=== PATIENT | male | born 1940 | race Caucasian/White ===

== ENCOUNTER 2018-01-22 11:40 | Inpatient (IN) | payer MEDICARE, OTHER ==
[2018-01-22 13:16] LABS: ABNORMAL IP MESSAGE 1; HEMOGLOBIN 13.6 g/dl (14.0-18.0); MEAN CORPUSCULAR HEMOGLOBIN 28.3 pg (29.0-33.0); MEAN CORPUSCULAR HGB CONC 33.2 g/dl (32.0-37.0); MEAN CORPUSCULAR VOLUME 85.2 fl (82.0-101.0); MEAN PLATELET VOLUME 11.5 fl (7.4-10.4); PLATELET COUNT 77 10^3/UL (140-415); POSITIVE DIFF @See below; RED BLOOD COUNT 4.81 10^6/ul (4.70-6.10); RED CELL DISTRIBUTION WIDTH 14.8 % (11.5-14.5)
[2018-01-22 13:16] LABS: WHITE BLOOD COUNT 3.6 10^3/ul (4.8-10.8)
[2018-01-22 13:20] LABS: LACTIC ACID 1.5 mmol/L (0.5-2.0)
[2018-01-22 13:20] LABS: ALANINE AMINOTRANSFERASE 16 IU/L (13-69); ALBUMIN 3.9 g/dl (3.3-4.9); ALBUMIN/GLOBULIN RATIO 1.02; ALKALINE PHOSPHATASE 38 IU/L (42-121); ANION GAP 15 (8-16); ASPARTATE AMINO TRANSFERASE 22 IU/L (15-46); BILIRUBIN,INDIRECT 0.3 mg/dl (0-1.1); BILIRUBIN,TOTAL 0.3 mg/dl (0.2-1.3); BLOOD UREA NITROGEN 10 mg/dl (7-20); CARBON DIOXIDE 27 mmol/L (21-31); CHLORIDE 100 mmol/L (97-110); GLUCOSE 162 mg/dl (70-220); SODIUM 138 mmol/L (135-144); TOTAL PROTEIN 7.7 g/dl (6.1-8.1)
[2018-01-22 13:21] LABS: ADD MAN DIFF? YES; INR 1.25; PROTIME 15.9 Sec (11.9-14.9); PT RATIO 1.2
[2018-01-22 13:24] LABS: PARTIAL THROMBOPLASTIN TIME 36.1 Sec (25.0-35.0)
[2018-01-22] MEDS: SODIUM CHLORIDE 0.9% 1L BAG IV* (13:26)
[2018-01-22 13:31] LABS: TROPONIN-I < 0.012 ng/ml (0.00-0.12)
[2018-01-22 13:46] LABS: ANISOCYTOSIS 2+ (0-0); BAND NEUTROPHILS #M 0.4 10^3/ul (0.0-0.6); BAND NEUTROPHILS % (M) 13 % (0-4); LYMPHOCYTES #M 0.5 10^3/ul (0.8-2.9); LYMPHOCYTES % (M) 16 % (15-51); METAMYELOCYTES %M 1 % (0-0); MICROCYTOSIS 2+ (0-0); MONOCYTE #M 0.5 10^3/ul (0.3-0.9); MONOCYTES % (M) 15 % (0-11); MYELOCYTES #M 0.1 10^3/ul (0.0-0.0); MYELOCYTES % (M) 3 % (0-0); PLATELET ESTIMATE SIG DECREASED; POIKILOCYTOSIS 2+ (0-0); POLYCHROMASIA 3+ (0-0); REACTIVE LYMPHOCYTES #M 0.2 10^3/ul (0.0-0.0); REACTIVE LYMPHOCYTES% (M) 8 % (0-0); SEG NEUT #M 1.6 10^3/ul (1.6-7.5); SEGMENTED NEUTROPHILS (M) % 44 % (39-77); SMUDGE%M 1 % (0-0)
[2018-01-22] MEDS: CEFEPIME 2GM/50 ML (PMX) 50 ML IVPB (14:07)
[2018-01-22 14:23] LABS: ADD UMIC YES; UR ASCORBIC ACID NEGATIVE (NEGATIVE); UR BILIRUBIN (Dip) NEGATIVE (NEGATIVE); UR BLOOD (Dip) 3+ mg/dL (NEGATIVE); UR CLARITY CLEAR (CLEAR); UR COLOR YELLOW (YELLOW); UR GLUCOSE (Dip) NEGATIVE (NEGATIVE); UR KETONES (Dip) NEGATIVE (NEGATIVE); UR LEUKOCYTE ESTERASE (Dip) NEGATIVE Leu/ul (NEGATIVE); UR MUCUS MANY /HPF (NONE SEEN); UR NITRITE (Dip) NEGATIVE (NEGATIVE); UR RBC 64 /HPF (0-5); UR SPECIFIC GRAVITY (Dip) 1.025 (1.003-1.030); UR TOTAL PROTEIN (Dip) 2+ mg/dl (NEGATIVE); UR UROBILINOGEN (Dip) NEGATIVE (NEGATIVE); UR WBC 2 /HPF (0-5)
[2018-01-22 14:56] LABS: LACTIC ACID 1.2 mmol/L (0.5-2.0)
[2018-01-22] MEDS: VANCOMYCIN 1 GM (PMX) 250 ML IVPB (15:04)
[2018-01-22] MEDS ORDERED: ACETAMINOPHEN 325 MG TAB PO (17:00)
[2018-01-22] MEDS ORDERED: ONDANSETRON 4 MG INJ IV (17:00)
[2018-01-22] MEDS: ACETAMINOPHEN 500 MG TAB PO (17:01)
[2018-01-22 17:10] LABS: LACTIC ACID 1.4 mmol/L (0.5-2.0)
[2018-01-22] MEDS: SOD CHLORIDE 0.9% 1,000 ML IV (19:17)
[2018-01-22] MEDS: CEFEPIME 1GM/50 ML (PMX) 50 ML IVPB (23:57)
[2018-01-23 06:28] LABS: ADD MAN DIFF? NO
[2018-01-23 06:37] LABS: WHITE BLOOD COUNT 3.2 10^3/ul (4.8-10.8)
[2018-01-23 06:37] LABS: ABNORMAL IP MESSAGE 1; EOSINOPHILS % 0.6 % (0.0-7.0); HEMATOCRIT 38.2 % (42.0-52.0); HEMOGLOBIN 12.5 g/dl (14.0-18.0); LYMPHOCYTES # 1.1 10^3/ul (0.8-2.9); LYMPHOCYTES % 32.8 % (15.0-51.0); MEAN CORPUSCULAR HEMOGLOBIN 28.2 pg (29.0-33.0); MEAN CORPUSCULAR HGB CONC 32.7 g/dl (32.0-37.0); MEAN CORPUSCULAR VOLUME 86.2 fl (82.0-101.0); MEAN PLATELET VOLUME 11.2 fl (7.4-10.4); MONOCYTE # 0.7 10^3/ul (0.3-0.9); MONOCYTES % 22.5 % (0.0-11.0); NEUTROPHIL # 1.4 10^3/ul (1.6-7.5); NEUTROPHILS % 43.5 % (39.0-77.0); PLATELET COUNT 64 10^3/UL (140-415); POSITIVE DIFF @See below; RED BLOOD COUNT 4.43 10^6/ul (4.70-6.10); RED CELL DISTRIBUTION WIDTH 14.8 % (11.5-14.5)
[2018-01-23 07:41] LABS: ANION GAP 14 (8-16); BLOOD UREA NITROGEN 8 mg/dl (7-20); CALCIUM 8.1 mg/dl (8.4-10.2); CARBON DIOXIDE 27 mmol/L (21-31); CHLORIDE 105 mmol/L (97-110); CREATININE 0.72 mg/dl (0.61-1.24); GLUCOSE 90 mg/dl (70-220); POTASSIUM 3.7 mmol/L (3.5-5.1); SODIUM 142 mmol/L (135-144)
[2018-01-23] MEDS: CEFEPIME 1GM/50 ML (PMX) 50 ML IVPB ×2 (09:51→20:33)
[2018-01-23] MEDS: RISPERIDONE 1 MG TAB PO (09:52)
[2018-01-23] MEDS: CHOLECALCIFEROL 400 UNITS TAB PO (09:52)
[2018-01-23] MEDS: ESCITALOPRAM 10 MG TAB PO (09:52)
[2018-01-23] MEDS: DONEPEZIL 10 MG TAB PO (09:52)
[2018-01-23] MEDS: BENAZEPRIL 40 MG TAB PO (09:52)
[2018-01-23] MEDS: DUTASTERIDE 0.5 MG CAP PO (09:52)
[2018-01-23] MEDS: DOCUSATE SODIUM 250 MG CAP PO ×3 (09:53→20:34)
[2018-01-23] MEDS: AZELASTINE 30 ML NAS SPRAY NASAL ×2 (09:53→20:35)
[2018-01-23] MEDS: MEMANTINE 10 MG TAB PO (09:53)
[2018-01-23] MEDS: TAMSULOSIN (SR) 0.4 MG CAP PO (20:34)
[2018-01-24 06:48] LABS: ABNORMAL IP MESSAGE 1; HEMATOCRIT 39.1 % (42.0-52.0); HEMOGLOBIN 12.9 g/dl (14.0-18.0); MEAN CORPUSCULAR HEMOGLOBIN 28.4 pg (29.0-33.0); MEAN CORPUSCULAR VOLUME 86.1 fl (82.0-101.0); MEAN PLATELET VOLUME 10.9 fl (7.4-10.4); PLATELET COUNT 71 10^3/UL (140-415); POSITIVE DIFF @See below; RED BLOOD COUNT 4.54 10^6/ul (4.70-6.10); RED CELL DISTRIBUTION WIDTH 14.6 % (11.5-14.5)
[2018-01-24 06:58] LABS: ANION GAP 13 (8-16); BLOOD UREA NITROGEN 9 mg/dl (7-20); CALCIUM 8.6 mg/dl (8.4-10.2); CARBON DIOXIDE 30 mmol/L (21-31); CHLORIDE 105 mmol/L (97-110); CREATININE 0.75 mg/dl (0.61-1.24); GLUCOSE 166 mg/dl (70-220); POTASSIUM 3.5 mmol/L (3.5-5.1); SODIUM 144 mmol/L (135-144)
[2018-01-24 07:02] LABS: ADD MAN DIFF? YES
[2018-01-24 07:53] LABS: ANISOCYTOSIS 1+ (0-0); BAND NEUTROPHILS % (M) 3 % (0-4); BURR CELLS 1+ (0-0); EOSINOPHILS % (M) 1 % (0-7); LYMPHOCYTES % (M) 53 % (15-51); MICROCYTOSIS 1+ (0-0); MONOCYTE #M 0.3 10^3/ul (0.3-0.9); MONOCYTES % (M) 18 % (0-11); MYELOCYTES % (M) 1 % (0-0); PLATELET ESTIMATE DECREASED; POIKILOCYTOSIS 1+ (0-0); POLYCHROMASIA 2+ (0-0); SEG NEUT #M 0.5 10^3/ul (1.6-7.5); SEGMENTED NEUTROPHILS (M) % 24 % (39-77); SMUDGE%M 4 % (0-0)
[2018-01-24] MEDS: DOCUSATE SODIUM 250 MG CAP PO ×3 (09:14→20:10)
[2018-01-24] MEDS: ESCITALOPRAM 10 MG TAB PO (09:14)
[2018-01-24] MEDS: RISPERIDONE 1 MG TAB PO (09:14)
[2018-01-24] MEDS: MEMANTINE 10 MG TAB PO (09:14)
[2018-01-24] MEDS: BENAZEPRIL 40 MG TAB PO (09:15)
[2018-01-24] MEDS: DONEPEZIL 10 MG TAB PO (09:15)
[2018-01-24] MEDS: DUTASTERIDE 0.5 MG CAP PO (09:16)
[2018-01-24] MEDS: CHOLECALCIFEROL 400 UNITS TAB PO (09:16)
[2018-01-24] MEDS: CEFEPIME 1GM/50 ML (PMX) 50 ML IVPB ×2 (09:17→20:10)
[2018-01-24] MEDS: AZELASTINE 30 ML NAS SPRAY NASAL ×2 (09:18→20:11)
[2018-01-24] MEDS: TAMSULOSIN (SR) 0.4 MG CAP PO (20:10)
[2018-01-25 06:02] LABS: ADD MAN DIFF? NO
[2018-01-25 06:09] LABS: ABNORMAL IP MESSAGE 1; BASOPHILS % 0.4 % (0.0-2.0); EOSINOPHILS % 0.4 % (0.0-7.0); HEMATOCRIT 36.4 % (42.0-52.0); HEMOGLOBIN 12.1 g/dl (14.0-18.0); LYMPHOCYTES # 1.1 10^3/ul (0.8-2.9); LYMPHOCYTES % 48.3 % (15.0-51.0); MEAN CORPUSCULAR HEMOGLOBIN 28.2 pg (29.0-33.0); MEAN CORPUSCULAR HGB CONC 33.2 g/dl (32.0-37.0); MEAN CORPUSCULAR VOLUME 84.8 fl (82.0-101.0); MEAN PLATELET VOLUME 10.9 fl (7.4-10.4); MONOCYTE # 0.5 10^3/ul (0.3-0.9); NEUTROPHIL # 0.7 10^3/ul (1.6-7.5); NEUTROPHILS % 30.5 % (39.0-77.0); PLATELET COUNT 77 10^3/UL (140-415); POSITIVE DIFF @See below; RED BLOOD COUNT 4.29 10^6/ul (4.70-6.10); RED CELL DISTRIBUTION WIDTH 14.8 % (11.5-14.5)
[2018-01-25 06:09] LABS: WHITE BLOOD COUNT 2.3 10^3/ul (4.8-10.8)
[2018-01-25 06:25] LABS: ANION GAP 11 (8-16); BLOOD UREA NITROGEN 9 mg/dl (7-20); CALCIUM 8.7 mg/dl (8.4-10.2); CARBON DIOXIDE 30 mmol/L (21-31); CHLORIDE 108 mmol/L (97-110); CREATININE 0.66 mg/dl (0.61-1.24); GLUCOSE 105 mg/dl (70-220); POTASSIUM 3.7 mmol/L (3.5-5.1); SODIUM 145 mmol/L (135-144)
[2018-01-25] MEDS: DOCUSATE SODIUM 250 MG CAP PO ×3 (08:23→20:20)
[2018-01-25] MEDS: CHOLECALCIFEROL 400 UNITS TAB PO (08:23)
[2018-01-25] MEDS: AZELASTINE 30 ML NAS SPRAY NASAL ×2 (08:23→20:20)
[2018-01-25] MEDS: CEFEPIME 1GM/50 ML (PMX) 50 ML IVPB ×2 (08:23→20:20)
[2018-01-25] MEDS: DONEPEZIL 10 MG TAB PO (08:24)
[2018-01-25] MEDS: DUTASTERIDE 0.5 MG CAP PO (08:24)
[2018-01-25] MEDS: MEMANTINE 10 MG TAB PO (08:24)
[2018-01-25] MEDS: RISPERIDONE 1 MG TAB PO (08:24)
[2018-01-25] MEDS: ESCITALOPRAM 10 MG TAB PO (08:24)
[2018-01-25] MEDS: BENAZEPRIL 40 MG TAB PO (08:25)
[2018-01-25] MEDS: TAMSULOSIN (SR) 0.4 MG CAP PO (20:20)
[2018-01-26 05:58] LABS: ADD MAN DIFF? NO
[2018-01-26 06:14] LABS: RETICULOCYTE COUNT # 0.036 X10^6 (0.020-0.110); RETICULOCYTE COUNT % 0.8 % (0.5-1.5)
[2018-01-26 06:14] LABS: RETICULOCYTE RBC 4.43
[2018-01-26 06:16] LABS: ABNORMAL IP MESSAGE 1; BASOPHILS % 0.4 % (0.0-2.0); EOSINOPHILS % 0.4 % (0.0-7.0); HEMATOCRIT 37.9 % (42.0-52.0); HEMOGLOBIN 12.5 g/dl (14.0-18.0); LYMPHOCYTES # 1.1 10^3/ul (0.8-2.9); LYMPHOCYTES % 46.4 % (15.0-51.0); MEAN CORPUSCULAR HEMOGLOBIN 28.1 pg (29.0-33.0); MEAN CORPUSCULAR VOLUME 85.2 fl (82.0-101.0); MEAN PLATELET VOLUME 10.5 fl (7.4-10.4); MONOCYTE # 0.4 10^3/ul (0.3-0.9); MONOCYTES % 17.9 % (0.0-11.0); NEUTROPHIL # 0.8 10^3/ul (1.6-7.5); PLATELET COUNT 89 10^3/UL (140-415); POSITIVE DIFF @See below; RED BLOOD COUNT 4.45 10^6/ul (4.70-6.10); RED CELL DISTRIBUTION WIDTH 14.6 % (11.5-14.5)
[2018-01-26 06:16] LABS: WHITE BLOOD COUNT 2.4 10^3/ul (4.8-10.8)
[2018-01-26 06:21] LABS: ANION GAP 14 (8-16); BLOOD UREA NITROGEN 11 mg/dl (7-20); CALCIUM 8.8 mg/dl (8.4-10.2); CARBON DIOXIDE 27 mmol/L (21-31); CHLORIDE 107 mmol/L (97-110); CREATININE 0.69 mg/dl (0.61-1.24); GLUCOSE 107 mg/dl (70-220); POTASSIUM 3.9 mmol/L (3.5-5.1); SODIUM 144 mmol/L (135-144)
[2018-01-26 06:48] LABS: IRON 65 ug/dl (35-150)
[2018-01-26 06:57] LABS: % IRON SATURATION 20 % SAT (22-52); TOTAL IRON BINDING CAPACITY 328 ug/dl (241-421)
[2018-01-26 07:03] LABS: THYROID STIMULATING HORMONE 0.195 MIU/L (0.465-4.680)
[2018-01-26 07:07] LABS: FERRITIN 28.7 ng/ml (11.1-264.0)
[2018-01-26 07:50] LABS: LACTATE DEHYDROGENASE 260 IU/L (313-618)
[2018-01-26] MEDS: CHOLECALCIFEROL 400 UNITS TAB PO (08:07)
[2018-01-26] MEDS: AZELASTINE 30 ML NAS SPRAY NASAL ×2 (08:07→20:40)
[2018-01-26] MEDS: DONEPEZIL 10 MG TAB PO (08:07)
[2018-01-26] MEDS: DOCUSATE SODIUM 250 MG CAP PO ×3 (08:07→20:39)
[2018-01-26] MEDS: CEFEPIME 1GM/50 ML (PMX) 50 ML IVPB ×2 (08:07→20:39)
[2018-01-26] MEDS: BENAZEPRIL 40 MG TAB PO (08:08)
[2018-01-26] MEDS: RISPERIDONE 1 MG TAB PO (08:08)
[2018-01-26] MEDS: DUTASTERIDE 0.5 MG CAP PO (08:08)
[2018-01-26] MEDS: ESCITALOPRAM 10 MG TAB PO (08:08)
[2018-01-26] MEDS: MEMANTINE 10 MG TAB PO (08:09)
[2018-01-26 08:58] LABS: FOLATE 9.7 ng/ml (2.8-20.0)
[2018-01-26] MEDS: TAMSULOSIN (SR) 0.4 MG CAP PO (20:39)
[2018-01-27] MEDS: traMADol 50 MG TAB PO (04:25)
[2018-01-27] MEDS: MEMANTINE 10 MG TAB PO (08:36)
[2018-01-27] MEDS: DUTASTERIDE 0.5 MG CAP PO (08:37)
[2018-01-27] MEDS: BENAZEPRIL 40 MG TAB PO (08:37)
[2018-01-27] MEDS: ESCITALOPRAM 10 MG TAB PO (08:37)
[2018-01-27] MEDS: DONEPEZIL 10 MG TAB PO (08:38)
[2018-01-27] MEDS: CHOLECALCIFEROL 400 UNITS TAB PO (08:38)
[2018-01-27] MEDS: RISPERIDONE 1 MG TAB PO (08:38)
[2018-01-27] MEDS: AZELASTINE 30 ML NAS SPRAY NASAL ×2 (08:39→20:16)
[2018-01-27] MEDS: CEFEPIME 1GM/50 ML (PMX) 50 ML IVPB ×2 (08:39→20:16)
[2018-01-27] MEDS: DOCUSATE SODIUM 250 MG CAP PO ×3 (08:39→20:16)
[2018-01-27] MEDS: TAMSULOSIN (SR) 0.4 MG CAP PO (20:16)
[2018-01-28 05:49] LABS: ADD MAN DIFF? NO
[2018-01-28 06:01] LABS: ABNORMAL IP MESSAGE 1; BASOPHILS % 0.3 % (0.0-2.0); EOSINOPHILS % 0.6 % (0.0-7.0); HEMATOCRIT 39.4 % (42.0-52.0); HEMOGLOBIN 12.8 g/dl (14.0-18.0); LYMPHOCYTES # 1.3 10^3/ul (0.8-2.9); LYMPHOCYTES % 41.9 % (15.0-51.0); MEAN CORPUSCULAR HGB CONC 32.5 g/dl (32.0-37.0); MEAN CORPUSCULAR VOLUME 86.2 fl (82.0-101.0); MEAN PLATELET VOLUME 10.2 fl (7.4-10.4); MONOCYTE # 0.7 10^3/ul (0.3-0.9); MONOCYTES % 23.9 % (0.0-11.0); NEUTROPHIL # 0.9 10^3/ul (1.6-7.5); NEUTROPHILS % 30.1 % (39.0-77.0); PLATELET COUNT 106 10^3/UL (140-415); POSITIVE DIFF @See below; RED BLOOD COUNT 4.57 10^6/ul (4.70-6.10); RED CELL DISTRIBUTION WIDTH 14.3 % (11.5-14.5)
[2018-01-28 06:01] LABS: WHITE BLOOD COUNT 3.1 10^3/ul (4.8-10.8)
[2018-01-28 06:25] LABS: ANION GAP 10 (8-16); BLOOD UREA NITROGEN 10 mg/dl (7-20); CARBON DIOXIDE 32 mmol/L (21-31); CHLORIDE 107 mmol/L (97-110); CREATININE 0.75 mg/dl (0.61-1.24); GLUCOSE 110 mg/dl (70-220); POTASSIUM 4.4 mmol/L (3.5-5.1); SODIUM 145 mmol/L (135-144)
[2018-01-28] MEDS: MEMANTINE 10 MG TAB PO (09:23)
[2018-01-28] MEDS: DOCUSATE SODIUM 250 MG CAP PO ×3 (09:23→20:13)
[2018-01-28] MEDS: CEFEPIME 1GM/50 ML (PMX) 50 ML IVPB ×2 (09:23→20:13)
[2018-01-28] MEDS: ESCITALOPRAM 10 MG TAB PO (09:23)
[2018-01-28] MEDS: DUTASTERIDE 0.5 MG CAP PO (09:24)
[2018-01-28] MEDS: BENAZEPRIL 40 MG TAB PO (09:24)
[2018-01-28] MEDS: DONEPEZIL 10 MG TAB PO (09:24)
[2018-01-28] MEDS: CHOLECALCIFEROL 400 UNITS TAB PO (09:24)
[2018-01-28] MEDS: RISPERIDONE 1 MG TAB PO (09:25)
[2018-01-28] MEDS: AZELASTINE 30 ML NAS SPRAY NASAL ×2 (09:27→20:13)
[2018-01-28] MEDS: TAMSULOSIN (SR) 0.4 MG CAP PO (20:13)
[2018-01-29 07:14] LABS: ADD MAN DIFF? NO
[2018-01-29 07:18] LABS: WHITE BLOOD COUNT 2.8 10^3/ul (4.8-10.8)
[2018-01-29 07:18] LABS: BASOPHILS % 0.4 % (0.0-2.0); EOSINOPHILS % 0.4 % (0.0-7.0); HEMATOCRIT 38.8 % (42.0-52.0); HEMOGLOBIN 12.7 g/dl (14.0-18.0); LYMPHOCYTES # 1.2 10^3/ul (0.8-2.9); LYMPHOCYTES % 41.5 % (15.0-51.0); MEAN CORPUSCULAR HEMOGLOBIN 27.9 pg (29.0-33.0); MEAN CORPUSCULAR HGB CONC 32.7 g/dl (32.0-37.0); MEAN CORPUSCULAR VOLUME 85.3 fl (82.0-101.0); MEAN PLATELET VOLUME 10.6 fl (7.4-10.4); MONOCYTE # 0.4 10^3/ul (0.3-0.9); MONOCYTES % 15.2 % (0.0-11.0); NEUTROPHIL # 1.1 10^3/ul (1.6-7.5); NEUTROPHILS % 40.3 % (39.0-77.0); PLATELET COUNT 114 10^3/UL (140-415); POSITIVE DIFF @See below; RED BLOOD COUNT 4.55 10^6/ul (4.70-6.10); RED CELL DISTRIBUTION WIDTH 14.7 % (11.5-14.5)
[2018-01-29 07:44] LABS: ANION GAP 15 (8-16); BLOOD UREA NITROGEN 12 mg/dl (7-20); CARBON DIOXIDE 27 mmol/L (21-31); CHLORIDE 106 mmol/L (97-110); CREATININE 0.71 mg/dl (0.61-1.24); GLUCOSE 108 mg/dl (70-220); POTASSIUM 4.2 mmol/L (3.5-5.1); SODIUM 144 mmol/L (135-144)
[2018-01-29] MEDS: AZELASTINE 30 ML NAS SPRAY NASAL ×2 (09:00→20:23)
[2018-01-29] MEDS: DUTASTERIDE 0.5 MG CAP PO (10:22)
[2018-01-29] MEDS: RISPERIDONE 1 MG TAB PO (10:22)
[2018-01-29] MEDS: ESCITALOPRAM 10 MG TAB PO (10:22)
[2018-01-29] MEDS: CEFEPIME 1GM/50 ML (PMX) 50 ML IVPB (10:22)
[2018-01-29] MEDS: MEMANTINE 10 MG TAB PO (10:22)
[2018-01-29] MEDS: CHOLECALCIFEROL 400 UNITS TAB PO (10:23)
[2018-01-29] MEDS: DOCUSATE SODIUM 250 MG CAP PO ×3 (10:23→20:22)
[2018-01-29] MEDS: DONEPEZIL 10 MG TAB PO (10:24)
[2018-01-29] MEDS: BENAZEPRIL 40 MG TAB PO (10:24)
[2018-01-29] MEDS: TAMSULOSIN (SR) 0.4 MG CAP PO (20:22)
[2018-01-30] MEDS: DONEPEZIL 10 MG TAB PO (08:45)
[2018-01-30] MEDS: DOCUSATE SODIUM 250 MG CAP PO ×2 (08:45→12:38)
[2018-01-30] MEDS: MEMANTINE 10 MG TAB PO (08:45)
[2018-01-30] MEDS: BENAZEPRIL 40 MG TAB PO (08:46)
[2018-01-30] MEDS: CHOLECALCIFEROL 400 UNITS TAB PO (08:46)
[2018-01-30] MEDS: DUTASTERIDE 0.5 MG CAP PO (08:46)
[2018-01-30] MEDS: RISPERIDONE 1 MG TAB PO (08:46)
[2018-01-30] MEDS: ESCITALOPRAM 10 MG TAB PO (08:46)
[2018-01-30] MEDS: AZELASTINE 30 ML NAS SPRAY NASAL (09:44)
== END 2018-01-30 19:20 | DRG 728 ==
LOC: MS2 01-29 23:48 → E/R 11:40 → MS2 16:54
DX: N41.0 Acute prostatitis (principal); N39.0 Urinary tract infection, site not specified; D61.818 Other pancytopenia; R31.9 Hematuria, unspecified; J02.9 Acute pharyngitis, unspecified; G30.9 Alzheimer's disease, unspecified; F02.80 Dementia in other diseases classified elsewhere, unspecified severity, without behavioral disturbance, psychotic disturbance, mood disturbance, and anxiety; I10 Essential (primary) hypertension; E78.5 Hyperlipidemia, unspecified
CPT/HCPCS: 36415; 71045; 76700; 80048; 80053; 81001; 82607; 82728; 82746; 83540; 83605; 83615; 84443; 84484; 85025; 85045; 85610; 85730; 87040; 87086; 96374; 96375; 99285-25

== ENCOUNTER 2018-09-23 12:25 | Emergency (ER) | payer MEDICARE, OTHER ==
[2018-09-23 13:21] LABS: ADD MAN DIFF? NO
[2018-09-23 13:29] LABS: WHITE BLOOD COUNT 3.1 10^3/ul (4.8-10.8)
[2018-09-23 13:29] LABS: BASOPHILS % 0.3 % (0.0-2.0); HEMATOCRIT 38.1 % (42.0-52.0); HEMOGLOBIN 12.2 g/dl (14.0-18.0); LYMPHOCYTES # 1.2 10^3/ul (0.8-2.9); LYMPHOCYTES % 38.5 % (15.0-51.0); MEAN CORPUSCULAR HEMOGLOBIN 26.6 pg (29.0-33.0); MEAN CORPUSCULAR VOLUME 83.2 fl (82.0-101.0); MEAN PLATELET VOLUME 10.6 fl (7.4-10.4); MONOCYTE # 0.6 10^3/ul (0.3-0.9); MONOCYTES % 20.1 % (0.0-11.0); NEUTROPHIL # 1.3 10^3/ul (1.6-7.5); NEUTROPHILS % 40.8 % (39.0-77.0); PLATELET COUNT 127 10^3/UL (140-415); RED BLOOD COUNT 4.58 10^6/ul (4.70-6.10); RED CELL DISTRIBUTION WIDTH 15.1 % (11.5-14.5)
[2018-09-23 13:44] LABS: ALANINE AMINOTRANSFERASE 28 IU/L (13-69); ALBUMIN 4.1 g/dl (3.3-4.9); ALBUMIN/GLOBULIN RATIO 1.13; ALKALINE PHOSPHATASE 45 IU/L (42-121); ANION GAP 7 (5-13); ASPARTATE AMINO TRANSFERASE 23 IU/L (15-46); BILIRUBIN,INDIRECT 0.2 mg/dl (0-1.1); BILIRUBIN,TOTAL 0.2 mg/dl (0.2-1.3); BLOOD UREA NITROGEN 10 mg/dl (7-20); CALCIUM 9.5 mg/dl (8.4-10.2); CARBON DIOXIDE 27 mmol/L (21-31); CHLORIDE 107 mmol/L (97-110); CREATININE 0.65 mg/dl (0.61-1.24); ETHANOL < 10.0 mg/dl (0-0); GLUCOSE 95 mg/dl (70-220); POTASSIUM 4.2 mmol/L (3.5-5.1); SODIUM 141 mmol/L (135-144); TOTAL PROTEIN 7.7 g/dl (6.1-8.1)
[2018-09-23 14:48] LABS: ADD UMIC NO; UR ASCORBIC ACID NEGATIVE (NEGATIVE); UR BILIRUBIN (Dip) NEGATIVE (NEGATIVE); UR BLOOD (Dip) NEGATIVE (NEGATIVE); UR CLARITY CLEAR (CLEAR); UR COLOR YELLOW (YELLOW); UR GLUCOSE (Dip) NEGATIVE (NEGATIVE); UR KETONES (Dip) NEGATIVE (NEGATIVE); UR LEUKOCYTE ESTERASE (Dip) NEGATIVE Leu/ul (NEGATIVE); UR NITRITE (Dip) NEGATIVE (NEGATIVE); UR TOTAL PROTEIN (Dip) NEGATIVE (NEGATIVE); UR UROBILINOGEN (Dip) NEGATIVE (NEGATIVE)
[2018-09-23 15:05] LABS: AMPHETAMINE/METHAMPHETAMINE Negative (NEGATIVE); BARBITURATES Negative (NEGATIVE); BENZODIAZEPINES Negative (NEGATIVE); CANNABINOIDS Negative (NEGATIVE); COCAINE Negative (NEGATIVE); OPIATES Negative (NEGATIVE)
== END 2018-09-23 17:30 | disposition home or self-care (01) ==
LOC: E/R 12:25
DX: F03.91 Unspecified dementia, unspecified severity, with behavioral disturbance (principal); R40.2142 Coma scale, eyes open, spontaneous, at arrival to emergency department; I10 Essential (primary) hypertension; J44.9 Chronic obstructive pulmonary disease, unspecified
CPT/HCPCS: 70450; 71045; 80053; 80307; 81003; 85025; 99285-25

== ENCOUNTER 2018-10-22 18:46 | Inpatient (IN) | payer MEDICARE, OTHER ==
[2018-10-22 19:18] LABS: ADD MAN DIFF? NO
[2018-10-22] MEDS: SOD CHLORIDE 0.9% 500 ML IV (19:18)
[2018-10-22 19:22] LABS: WHITE BLOOD COUNT 2.6 10^3/ul (4.8-10.8)
[2018-10-22 19:22] LABS: ABNORMAL IP MESSAGE 1; HEMATOCRIT 39.4 % (42.0-52.0); HEMOGLOBIN 12.5 g/dl (14.0-18.0); MEAN CORPUSCULAR HEMOGLOBIN 26.4 pg (29.0-33.0); MEAN CORPUSCULAR HGB CONC 31.7 g/dl (32.0-37.0); MEAN CORPUSCULAR VOLUME 83.3 fl (82.0-101.0); MEAN PLATELET VOLUME 10.5 fl (7.4-10.4); PLATELET COUNT 111 10^3/UL (140-415); POSITIVE DIFF @See below; RED BLOOD COUNT 4.73 10^6/ul (4.70-6.10); RED CELL DISTRIBUTION WIDTH 15.5 % (11.5-14.5)
[2018-10-22 19:36] LABS: ALANINE AMINOTRANSFERASE 17 IU/L (13-69); ALBUMIN 4.3 g/dl (3.3-4.9); ALBUMIN/GLOBULIN RATIO 1.22; ALKALINE PHOSPHATASE 44 IU/L (42-121); ANION GAP 13 (5-13); ASPARTATE AMINO TRANSFERASE 22 IU/L (15-46); BILIRUBIN,INDIRECT 0.1 mg/dl (0-1.1); BILIRUBIN,TOTAL 0.1 mg/dl (0.2-1.3); BLOOD UREA NITROGEN 14 mg/dl (7-20); CALCIUM 9.8 mg/dl (8.4-10.2); CARBON DIOXIDE 26 mmol/L (21-31); CHLORIDE 102 mmol/L (97-110); CREATININE 0.95 mg/dl (0.61-1.24); GLUCOSE 105 mg/dl (70-220); LIPASE 144 U/L (23-300); POTASSIUM 3.9 mmol/L (3.5-5.1); SODIUM 141 mmol/L (135-144); TOTAL PROTEIN 7.8 g/dl (6.1-8.1)
[2018-10-22 19:48] LABS: TROPONIN-I < 0.012 ng/ml (0.000-0.120)
[2018-10-22 20:05] LABS: GIANT THROMBO% (M) 4 % (0-0); LYMPHOCYTES #M 1.2 10^3/ul (0.8-2.9); LYMPHOCYTES % (M) 47 % (15-51); MONOCYTE #M 0.3 10^3/ul (0.3-0.9); MONOCYTES % (M) 14 % (0-11); PLATELET ESTIMATE NORMAL; POIKILOCYTOSIS 1+ (0-0); POLYCHROMASIA 1+ (0-0); SEGMENTED NEUTROPHILS (M) % 39 % (39-77); SMUDGE%M 10 % (0-0)
[2018-10-22 20:07] LABS: ADD UMIC YES; UR ASCORBIC ACID NEGATIVE (NEGATIVE); UR BILIRUBIN (Dip) NEGATIVE (NEGATIVE); UR BLOOD (Dip) 3+ mg/dL (NEGATIVE); UR CLARITY CLEAR (CLEAR); UR COLOR YELLOW (YELLOW); UR GLUCOSE (Dip) NEGATIVE (NEGATIVE); UR KETONES (Dip) NEGATIVE (NEGATIVE); UR LEUKOCYTE ESTERASE (Dip) NEGATIVE Leu/ul (NEGATIVE); UR NITRITE (Dip) NEGATIVE (NEGATIVE); UR RBC > 182 /HPF (0-5); UR SPECIFIC GRAVITY (Dip) 1.014 (1.003-1.030); UR SQUAMOUS EPITHELIAL CELL FEW /HPF (FEW); UR TOTAL PROTEIN (Dip) 1+ mg/dl (NEGATIVE); UR UROBILINOGEN (Dip) NEGATIVE (NEGATIVE); UR WBC 22 /HPF (0-5)
[2018-10-22] MEDS ORDERED: NACL 0.9% 3 ML SYG IV (21:00)
[2018-10-22] MEDS ORDERED: ONDANSETRON 4 MG INJ IV (21:00)
[2018-10-22] MEDS ORDERED: morphine 4 MG/ML VIAL IV (21:00)
[2018-10-22] MEDS: FAMOTIDINE 20 MG INJ IV (22:52)
[2018-10-22] MEDS: CEFEPIME 1GM/50 ML (PMX) 50 ML IVPB (22:52)
[2018-10-23 07:16] LABS: ADD MAN DIFF? NO
[2018-10-23 07:31] LABS: ABNORMAL IP MESSAGE 1; BASOPHILS % 0.5 % (0.0-2.0); EOSINOPHILS % 0.5 % (0.0-7.0); LYMPHOCYTES % 45.2 % (15.0-51.0); MEAN CORPUSCULAR HEMOGLOBIN 26.3 pg (29.0-33.0); MEAN CORPUSCULAR HGB CONC 31.6 g/dl (32.0-37.0); MEAN CORPUSCULAR VOLUME 83.3 fl (82.0-101.0); MEAN PLATELET VOLUME 11.3 fl (7.4-10.4); MONOCYTE # 0.5 10^3/ul (0.3-0.9); NEUTROPHIL # 0.7 10^3/ul (1.6-7.5); NEUTROPHILS % 30.3 % (39.0-77.0); PLATELET COUNT 101 10^3/UL (140-415); POSITIVE DIFF @See below; RED BLOOD COUNT 4.56 10^6/ul (4.70-6.10); RED CELL DISTRIBUTION WIDTH 15.5 % (11.5-14.5)
[2018-10-23 07:31] LABS: WHITE BLOOD COUNT 2.2 10^3/ul (4.8-10.8)
[2018-10-23 07:41] LABS: HEMOGLOBIN A1C 6.4 % (0-5.9)
[2018-10-23 07:59] LABS: ALANINE AMINOTRANSFERASE 19 IU/L (13-69); ALBUMIN 3.8 g/dl (3.3-4.9); ALBUMIN/GLOBULIN RATIO 1.15; ALKALINE PHOSPHATASE 31 IU/L (42-121); ANION GAP 6 (5-13); ASPARTATE AMINO TRANSFERASE 19 IU/L (15-46); BILIRUBIN,INDIRECT 0.2 mg/dl (0-1.1); BILIRUBIN,TOTAL 0.2 mg/dl (0.2-1.3); BLOOD UREA NITROGEN 10 mg/dl (7-20); CALCIUM 9.2 mg/dl (8.4-10.2); CARBON DIOXIDE 26 mmol/L (21-31); CHLORIDE 111 mmol/L (97-110); CREATININE 0.73 mg/dl (0.61-1.24); GLUCOSE 105 mg/dl (70-220); POTASSIUM 3.9 mmol/L (3.5-5.1); SODIUM 143 mmol/L (135-144); TOTAL PROTEIN 7.1 g/dl (6.1-8.1)
[2018-10-23] MEDS: ENOXAPARIN 30 MG/0.3 ML SYG SC (09:00)
[2018-10-23] MEDS: FAMOTIDINE 20 MG INJ IV ×2 (09:06→20:39)
[2018-10-23] MEDS: ACETAMINOPHEN 325 MG TAB PO (14:05)
[2018-10-23] MEDS ORDERED: ACETAMINOPHEN 325 MG TAB PO (19:00)
[2018-10-23] MEDS: DOCUSATE SODIUM 250 MG CAP PO (20:39)
[2018-10-23] MEDS: TAMSULOSIN (SR) 0.4 MG CAP PO (20:39)
[2018-10-23] MEDS: CEFTRIAXONE 1 GM/50 ML (PMX) 50 ML IVPB (20:43)
[2018-10-24] MEDS: DEXTROSE 5%-0.45% NACL 1,000 ML IV (03:21)
[2018-10-24] MEDS: PANTOPRAZOLE (EC) 40 MG TAB PO (05:49)
[2018-10-24] MEDS: DOCUSATE SODIUM 250 MG CAP PO ×2 (09:23→20:41)
[2018-10-24] MEDS: CHOLECALCIFEROL 400 UNITS TAB PO (09:23)
[2018-10-24] MEDS: DUTASTERIDE 0.5 MG CAP PO (09:23)
[2018-10-24] MEDS: RISPERIDONE 0.25 MG TAB PO (09:23)
[2018-10-24] MEDS: DONEPEZIL 10 MG TAB PO (09:24)
[2018-10-24] MEDS: MEMANTINE 10 MG TAB PO (09:24)
[2018-10-24] MEDS: BENAZEPRIL 40 MG TAB PO (11:21)
[2018-10-24 12:25] LABS: ADD MAN DIFF? NO
[2018-10-24 12:29] LABS: ABNORMAL IP MESSAGE 1; BASOPHILS % 0.4 % (0.0-2.0); EOSINOPHILS % 0.4 % (0.0-7.0); HEMATOCRIT 40.9 % (42.0-52.0); LYMPHOCYTES # 1.3 10^3/ul (0.8-2.9); MEAN CORPUSCULAR HGB CONC 31.8 g/dl (32.0-37.0); MEAN CORPUSCULAR VOLUME 81.8 fl (82.0-101.0); MEAN PLATELET VOLUME 10.2 fl (7.4-10.4); MONOCYTE # 0.5 10^3/ul (0.3-0.9); MONOCYTES % 18.1 % (0.0-11.0); NEUTROPHIL # 0.8 10^3/ul (1.6-7.5); NEUTROPHILS % 30.7 % (39.0-77.0); PLATELET COUNT 106 10^3/UL (140-415); POSITIVE DIFF @See below; RED CELL DISTRIBUTION WIDTH 15.7 % (11.5-14.5)
[2018-10-24 12:29] LABS: WHITE BLOOD COUNT 2.6 10^3/ul (4.8-10.8)
[2018-10-24 12:50] LABS: ANION GAP 10 (5-13); BLOOD UREA NITROGEN 11 mg/dl (7-20); CALCIUM 9.8 mg/dl (8.4-10.2); CREATININE 0.77 mg/dl (0.61-1.24); GLUCOSE 87 mg/dl (70-220)
[2018-10-24 13:21] LABS: POTASSIUM 3.9 mmol/L (3.5-5.1); SODIUM 141 mmol/L (135-144)
[2018-10-24 13:22] LABS: CARBON DIOXIDE 27 mmol/L (21-31); CHLORIDE 104 mmol/L (97-110)
[2018-10-24] MEDS: CEFTRIAXONE 1 GM/50 ML (PMX) 50 ML IVPB (18:24)
[2018-10-24] MEDS: TAMSULOSIN (SR) 0.4 MG CAP PO (20:40)
[2018-10-24] MEDS: ESCITALOPRAM 10 MG TAB PO (20:41)
[2018-10-25] MEDS: DEXTROSE 5%-0.45% NACL 1,000 ML IV ×2 (01:07→12:20)
[2018-10-25] MEDS: PANTOPRAZOLE (EC) 40 MG TAB PO (05:43)
[2018-10-25] MEDS: DOCUSATE SODIUM 250 MG CAP PO ×2 (08:52→21:04)
[2018-10-25] MEDS: BENAZEPRIL 40 MG TAB PO (08:53)
[2018-10-25] MEDS: RISPERIDONE 0.25 MG TAB PO (08:54)
[2018-10-25] MEDS: CHOLECALCIFEROL 400 UNITS TAB PO (08:54)
[2018-10-25] MEDS: MEMANTINE 10 MG TAB PO (08:54)
[2018-10-25] MEDS: DONEPEZIL 10 MG TAB PO (08:55)
[2018-10-25] MEDS: DUTASTERIDE 0.5 MG CAP PO (09:00)
[2018-10-25] MEDS: CEFTRIAXONE 1 GM/50 ML (PMX) 50 ML IVPB (17:57)
[2018-10-25] MEDS: ESCITALOPRAM 10 MG TAB PO (21:04)
[2018-10-25] MEDS: TAMSULOSIN (SR) 0.4 MG CAP PO (21:04)
[2018-10-26] MEDS: DEXTROSE 5%-0.45% NACL 1,000 ML IV ×2 (05:00→06:49)
[2018-10-26 06:07] LABS: ADD MAN DIFF? NO
[2018-10-26 06:10] LABS: WHITE BLOOD COUNT 2.9 10^3/ul (4.8-10.8)
[2018-10-26 06:10] LABS: BASOPHILS % 0.3 % (0.0-2.0); EOSINOPHILS % 0.3 % (0.0-7.0); HEMATOCRIT 38.3 % (42.0-52.0); HEMOGLOBIN 12.1 g/dl (14.0-18.0); LYMPHOCYTES # 1.3 10^3/ul (0.8-2.9); LYMPHOCYTES % 43.8 % (15.0-51.0); MEAN CORPUSCULAR HEMOGLOBIN 26.2 pg (29.0-33.0); MEAN CORPUSCULAR HGB CONC 31.6 g/dl (32.0-37.0); MEAN CORPUSCULAR VOLUME 83.1 fl (82.0-101.0); MEAN PLATELET VOLUME 11.4 fl (7.4-10.4); MONOCYTE # 0.5 10^3/ul (0.3-0.9); MONOCYTES % 17.4 % (0.0-11.0); NEUTROPHIL # 1.1 10^3/ul (1.6-7.5); NEUTROPHILS % 37.9 % (39.0-77.0); PLATELET COUNT 109 10^3/UL (140-415); RED BLOOD COUNT 4.61 10^6/ul (4.70-6.10); RED CELL DISTRIBUTION WIDTH 15.6 % (11.5-14.5)
[2018-10-26 06:45] LABS: ANION GAP 10 (5-13); BLOOD UREA NITROGEN 14 mg/dl (7-20); CALCIUM 9.2 mg/dl (8.4-10.2); CARBON DIOXIDE 26 mmol/L (21-31); CHLORIDE 106 mmol/L (97-110); CREATININE 0.76 mg/dl (0.61-1.24); GLUCOSE 107 mg/dl (70-220); POTASSIUM 3.9 mmol/L (3.5-5.1); SODIUM 142 mmol/L (135-144)
[2018-10-26] MEDS: PANTOPRAZOLE (EC) 40 MG TAB PO (06:48)
[2018-10-26] MEDS: DONEPEZIL 10 MG TAB PO (08:43)
[2018-10-26] MEDS: BENAZEPRIL 40 MG TAB PO (08:43)
[2018-10-26] MEDS: DOCUSATE SODIUM 250 MG CAP PO ×2 (08:44→20:30)
[2018-10-26] MEDS: CHOLECALCIFEROL 400 UNITS TAB PO (08:44)
[2018-10-26] MEDS: MEMANTINE 10 MG TAB PO (08:45)
[2018-10-26] MEDS: RISPERIDONE 0.25 MG TAB PO (08:45)
[2018-10-26] MEDS: DUTASTERIDE 0.5 MG CAP PO (08:45)
[2018-10-26] MEDS: ASPIRIN (EC) 81 MG TAB PO (12:53)
[2018-10-26] MEDS: TAMSULOSIN (SR) 0.4 MG CAP PO (20:30)
[2018-10-26] MEDS: ESCITALOPRAM 10 MG TAB PO (20:30)
[2018-10-27] MEDS: PANTOPRAZOLE (EC) 40 MG TAB PO (06:37)
[2018-10-27] MEDS: MEMANTINE 10 MG TAB PO (08:23)
[2018-10-27] MEDS: DUTASTERIDE 0.5 MG CAP PO (08:23)
[2018-10-27] MEDS: DOCUSATE SODIUM 250 MG CAP PO ×2 (08:23→20:42)
[2018-10-27] MEDS: RISPERIDONE 0.25 MG TAB PO (08:23)
[2018-10-27] MEDS: CHOLECALCIFEROL 400 UNITS TAB PO (08:23)
[2018-10-27] MEDS: ASPIRIN (EC) 81 MG TAB PO (08:23)
[2018-10-27] MEDS: DONEPEZIL 10 MG TAB PO (08:23)
[2018-10-27] MEDS: BENAZEPRIL 40 MG TAB PO (08:23)
[2018-10-27 09:35] LABS: ANION GAP 4 (5-13); BLOOD UREA NITROGEN 13 mg/dl (7-20); CALCIUM 9.3 mg/dl (8.4-10.2); CARBON DIOXIDE 29 mmol/L (21-31); CHLORIDE 107 mmol/L (97-110); CREATININE 0.75 mg/dl (0.61-1.24); GLUCOSE 90 mg/dl (70-220); POTASSIUM 4.1 mmol/L (3.5-5.1); SODIUM 140 mmol/L (135-144)
[2018-10-27 16:02] LABS: FOLATE 11.1 ng/ml (2.8-20.0)
[2018-10-27] MEDS ORDERED: ALBUTEROL/IPRATROPIUM (NEB) 3 ML AMP HHN (16:30)
[2018-10-27] MEDS: ESCITALOPRAM 10 MG TAB PO (20:41)
[2018-10-27] MEDS: TAMSULOSIN (SR) 0.4 MG CAP PO (20:42)
[2018-10-28] MEDS: PANTOPRAZOLE (EC) 40 MG TAB PO (06:00)
[2018-10-28 06:07] LABS: ADD MAN DIFF? NO
[2018-10-28 06:22] LABS: BASOPHILS % 0.3 % (0.0-2.0); EOSINOPHILS % 0.3 % (0.0-7.0); HEMATOCRIT 39.4 % (42.0-52.0); HEMOGLOBIN 12.5 g/dl (14.0-18.0); LYMPHOCYTES # 1.4 10^3/ul (0.8-2.9); LYMPHOCYTES % 45.1 % (15.0-51.0); MEAN CORPUSCULAR HEMOGLOBIN 26.4 pg (29.0-33.0); MEAN CORPUSCULAR HGB CONC 31.7 g/dl (32.0-37.0); MEAN CORPUSCULAR VOLUME 83.3 fl (82.0-101.0); MEAN PLATELET VOLUME 11.1 fl (7.4-10.4); MONOCYTE # 0.6 10^3/ul (0.3-0.9); MONOCYTES % 19.8 % (0.0-11.0); NEUTROPHILS % 33.9 % (39.0-77.0); PLATELET COUNT 110 10^3/UL (140-415); RED BLOOD COUNT 4.73 10^6/ul (4.70-6.10); RED CELL DISTRIBUTION WIDTH 15.4 % (11.5-14.5)
[2018-10-28 06:22] LABS: WHITE BLOOD COUNT 3.1 10^3/ul (4.8-10.8)
[2018-10-28 06:43] LABS: ANION GAP 9 (5-13); BLOOD UREA NITROGEN 16 mg/dl (7-20); CALCIUM 9.6 mg/dl (8.4-10.2); CARBON DIOXIDE 28 mmol/L (21-31); CHLORIDE 105 mmol/L (97-110); CREATININE 0.81 mg/dl (0.61-1.24); GLUCOSE 95 mg/dl (70-220); SODIUM 142 mmol/L (135-144)
[2018-10-28] MEDS: ASPIRIN (EC) 81 MG TAB PO ×2 (09:00→19:42)
[2018-10-28] MEDS: DONEPEZIL 10 MG TAB PO (09:16)
[2018-10-28] MEDS: DOCUSATE SODIUM 250 MG CAP PO ×2 (09:16→21:06)
[2018-10-28] MEDS: CHOLECALCIFEROL 400 UNITS TAB PO (09:16)
[2018-10-28] MEDS: DUTASTERIDE 0.5 MG CAP PO (09:16)
[2018-10-28] MEDS: BENAZEPRIL 40 MG TAB PO (09:18)
[2018-10-28] MEDS: MEMANTINE 10 MG TAB PO (09:18)
[2018-10-28] MEDS: RISPERIDONE 0.25 MG TAB PO (09:19)
[2018-10-28 12:27] LABS: HOMOCYSTEINE - CARDIOVASCULAR 9.9 umol/L (<11.4)
[2018-10-28 14:29] LABS: LACTATE DEHYDROGENASE 312 IU/L (313-618)
[2018-10-28] MEDS: TAMSULOSIN (SR) 0.4 MG CAP PO (21:06)
[2018-10-28] MEDS: ESCITALOPRAM 10 MG TAB PO (21:07)
[2018-10-29 03:03] LABS: PROTEIN, TOTAL 6.9 g/dL (6.1-8.1)
[2018-10-29] MEDS: PANTOPRAZOLE (EC) 40 MG TAB PO (06:32)
[2018-10-29 08:21] LABS: ADD MAN DIFF? NO
[2018-10-29 08:26] LABS: ABNORMAL IP MESSAGE 1; BASOPHILS % 0.3 % (0.0-2.0); EOSINOPHILS % 0.3 % (0.0-7.0); HEMOGLOBIN 12.8 g/dl (14.0-18.0); LYMPHOCYTES # 1.4 10^3/ul (0.8-2.9); MEAN CORPUSCULAR HEMOGLOBIN 26.2 pg (29.0-33.0); MEAN PLATELET VOLUME 10.8 fl (7.4-10.4); MONOCYTE # 0.5 10^3/ul (0.3-0.9); MONOCYTES % 18.1 % (0.0-11.0); PLATELET COUNT 104 10^3/UL (140-415); POSITIVE DIFF @See below; RED BLOOD COUNT 4.88 10^6/ul (4.70-6.10); RED CELL DISTRIBUTION WIDTH 15.4 % (11.5-14.5)
[2018-10-29 08:26] LABS: WHITE BLOOD COUNT 2.9 10^3/ul (4.8-10.8)
[2018-10-29 08:46] LABS: ANION GAP 8 (5-13); BLOOD UREA NITROGEN 16 mg/dl (7-20); CALCIUM 9.8 mg/dl (8.4-10.2); CARBON DIOXIDE 29 mmol/L (21-31); CHLORIDE 104 mmol/L (97-110); CREATININE 0.84 mg/dl (0.61-1.24); GLUCOSE 102 mg/dl (70-220); SODIUM 141 mmol/L (135-144)
[2018-10-29] MEDS: PROPOFOL 20 ML ×2 (08:57→10:45)
[2018-10-29] MEDS: FENTAnyl 50 MCG/ML VIAL (08:57)
[2018-10-29] MEDS: LIDOCAINE 100 MG SYRINGE (09:11)
[2018-10-29] MEDS ORDERED: LABETALOL HCL 20MG INJ IV (10:00)
[2018-10-29] MEDS ORDERED: MEPERIDINE 25 MG INJ IV (10:00)
[2018-10-29] MEDS ORDERED: EPHEDrine SULFATE 50 MG/5 ML SYG IV (10:00)
[2018-10-29] MEDS ORDERED: DIPHENHYDRAMINE 50 MG INJ IV (10:00)
[2018-10-29] MEDS ORDERED: ONDANSETRON 4 MG INJ IV (10:00)
[2018-10-29] MEDS ORDERED: FENTAnyl 50 MCG/ML VIAL IV ×3 (10:00)
[2018-10-29] MEDS ORDERED: hydrALAzine 20 MG INJ IV (10:00)
[2018-10-29] MEDS: DOCUSATE SODIUM 250 MG CAP PO ×2 (11:40→20:15)
[2018-10-29] MEDS: DUTASTERIDE 0.5 MG CAP PO (11:40)
[2018-10-29] MEDS: MEMANTINE 10 MG TAB PO (11:41)
[2018-10-29] MEDS: DONEPEZIL 10 MG TAB PO (11:41)
[2018-10-29] MEDS: RISPERIDONE 0.25 MG TAB PO (11:41)
[2018-10-29] MEDS: CHOLECALCIFEROL 400 UNITS TAB PO (11:41)
[2018-10-29] MEDS: BENAZEPRIL 40 MG TAB PO (11:41)
[2018-10-29] MEDS: ESCITALOPRAM 10 MG TAB PO (20:15)
[2018-10-29] MEDS: TAMSULOSIN (SR) 0.4 MG CAP PO (20:16)
[2018-10-29 23:12] LABS: ALBUMIN 3.9 g/dL (3.8-4.8); ALPHA-1-GLOBULINS 0.2 g/dL (0.2-0.3); ALPHA-2-GLOBULINS 0.6 g/dL (0.5-0.9); BETA 2 GLOBULINS 0.5 g/dL (0.2-0.5); BETA GLOBULINS 0.5 g/dL (0.4-0.6); GAMMA GLOBULINS 1.1 g/dL (0.8-1.7)
[2018-10-30] MEDS: PANTOPRAZOLE (EC) 40 MG TAB PO (05:35)
[2018-10-30] MEDS: DUTASTERIDE 0.5 MG CAP PO (08:11)
[2018-10-30] MEDS: RISPERIDONE 0.25 MG TAB PO (08:11)
[2018-10-30] MEDS: CHOLECALCIFEROL 400 UNITS TAB PO (08:11)
[2018-10-30] MEDS: MEMANTINE 10 MG TAB PO (08:11)
[2018-10-30] MEDS: BENAZEPRIL 40 MG TAB PO (08:11)
[2018-10-30] MEDS: DONEPEZIL 10 MG TAB PO (08:12)
[2018-10-30] MEDS: DOCUSATE SODIUM 250 MG CAP PO ×2 (08:12→21:09)
[2018-10-30] MEDS: ASPIRIN (EC) 81 MG TAB PO (08:12)
[2018-10-30] MEDS: TAMSULOSIN (SR) 0.4 MG CAP PO (21:09)
[2018-10-30] MEDS: ESCITALOPRAM 10 MG TAB PO (21:10)
[2018-10-31] MEDS: PANTOPRAZOLE (EC) 40 MG TAB PO (06:03)
[2018-10-31] MEDS: DOCUSATE SODIUM 250 MG CAP PO ×2 (08:40→20:44)
[2018-10-31] MEDS: MEMANTINE 10 MG TAB PO (08:40)
[2018-10-31] MEDS: DUTASTERIDE 0.5 MG CAP PO (08:40)
[2018-10-31] MEDS: RISPERIDONE 0.25 MG TAB PO (08:40)
[2018-10-31] MEDS: DONEPEZIL 10 MG TAB PO (08:40)
[2018-10-31] MEDS: ASPIRIN (EC) 81 MG TAB PO (08:40)
[2018-10-31 08:43] LABS: WHITE BLOOD COUNT 2.5 10^3/ul (4.8-10.8)
[2018-10-31 08:43] LABS: ABNORMAL IP MESSAGE 1; HEMATOCRIT 39.5 % (42.0-52.0); HEMOGLOBIN 12.4 g/dl (14.0-18.0); MEAN CORPUSCULAR HEMOGLOBIN 26.2 pg (29.0-33.0); MEAN CORPUSCULAR HGB CONC 31.4 g/dl (32.0-37.0); MEAN CORPUSCULAR VOLUME 83.3 fl (82.0-101.0); MEAN PLATELET VOLUME 10.7 fl (7.4-10.4); PLATELET COUNT 93 10^3/UL (140-415); POSITIVE DIFF @See below; RED BLOOD COUNT 4.74 10^6/ul (4.70-6.10); RED CELL DISTRIBUTION WIDTH 15.7 % (11.5-14.5)
[2018-10-31] MEDS: CHOLECALCIFEROL 400 UNITS TAB PO (08:44)
[2018-10-31] MEDS: BENAZEPRIL 40 MG TAB PO (08:44)
[2018-10-31 08:47] LABS: ADD MAN DIFF? YES
[2018-10-31 09:02] LABS: ANION GAP 7 (5-13); BLOOD UREA NITROGEN 13 mg/dl (7-20); CALCIUM 9.3 mg/dl (8.4-10.2); CARBON DIOXIDE 29 mmol/L (21-31); CHLORIDE 106 mmol/L (97-110); CREATININE 0.86 mg/dl (0.61-1.24); GLUCOSE 95 mg/dl (70-220); POTASSIUM 3.9 mmol/L (3.5-5.1); SODIUM 142 mmol/L (135-144)
[2018-10-31 09:55] LABS: BASOPHILS % (M) 1 % (0-2); BURR CELLS 1+ (0-0); LYMPHOCYTES #M 1.1 10^3/ul (0.8-2.9); LYMPHOCYTES % (M) 47 % (15-51); MONOCYTE #M 0.4 10^3/ul (0.3-0.9); MONOCYTES % (M) 19 % (0-11); MYELOCYTES % (M) 1 % (0-0); OVALOCYTES 1+ (0-0); PLATELET ESTIMATE DECREASED; POIKILOCYTOSIS 1+ (0-0); SEGMENTED NEUTROPHILS (M) % 32 % (39-77); SMUDGE%M 28 % (0-0)
[2018-10-31] MEDS: TAMSULOSIN (SR) 0.4 MG CAP PO (20:44)
[2018-10-31] MEDS: ESCITALOPRAM 10 MG TAB PO (20:45)
[2018-11-01] MEDS: PANTOPRAZOLE (EC) 40 MG TAB PO (05:59)
[2018-11-01] MEDS: ASPIRIN (EC) 81 MG TAB PO (08:11)
[2018-11-01] MEDS: RISPERIDONE 0.25 MG TAB PO (08:11)
[2018-11-01] MEDS: CHOLECALCIFEROL 400 UNITS TAB PO (08:11)
[2018-11-01] MEDS: MEMANTINE 10 MG TAB PO (08:11)
[2018-11-01] MEDS: DOCUSATE SODIUM 250 MG CAP PO ×2 (08:11→20:15)
[2018-11-01] MEDS: DONEPEZIL 10 MG TAB PO (08:13)
[2018-11-01] MEDS: DUTASTERIDE 0.5 MG CAP PO (08:13)
[2018-11-01] MEDS: BENAZEPRIL 40 MG TAB PO (08:13)
[2018-11-01 10:55] LABS: ADD MAN DIFF? NO
[2018-11-01 10:58] LABS: WHITE BLOOD COUNT 2.5 10^3/ul (4.8-10.8)
[2018-11-01 10:58] LABS: HEMATOCRIT 40.9 % (42.0-52.0); LYMPHOCYTES % 40.2 % (15.0-51.0); MEAN CORPUSCULAR HEMOGLOBIN 26.3 pg (29.0-33.0); MEAN CORPUSCULAR HGB CONC 31.8 g/dl (32.0-37.0); MEAN CORPUSCULAR VOLUME 82.8 fl (82.0-101.0); MEAN PLATELET VOLUME 12.3 fl (7.4-10.4); MONOCYTE # 0.5 10^3/ul (0.3-0.9); MONOCYTES % 18.5 % (0.0-11.0); NEUTROPHILS % 40.9 % (39.0-77.0); PLATELET COUNT 107 10^3/UL (140-415); RED BLOOD COUNT 4.94 10^6/ul (4.70-6.10); RED CELL DISTRIBUTION WIDTH 15.7 % (11.5-14.5)
[2018-11-01 11:18] LABS: ANION GAP 10 (5-13); BLOOD UREA NITROGEN 13 mg/dl (7-20); CALCIUM 9.6 mg/dl (8.4-10.2); CARBON DIOXIDE 25 mmol/L (21-31); CHLORIDE 106 mmol/L (97-110); GLUCOSE 119 mg/dl (70-220); POTASSIUM 4.4 mmol/L (3.5-5.1); SODIUM 141 mmol/L (135-144)
[2018-11-01] MEDS: TAMSULOSIN (SR) 0.4 MG CAP PO (20:15)
[2018-11-01] MEDS: ESCITALOPRAM 10 MG TAB PO (20:16)
[2018-11-02] MEDS: PANTOPRAZOLE (EC) 40 MG TAB PO (05:09)
[2018-11-02] MEDS: CHOLECALCIFEROL 400 UNITS TAB PO (08:22)
[2018-11-02] MEDS: DOCUSATE SODIUM 250 MG CAP PO ×2 (08:22→20:17)
[2018-11-02] MEDS: RISPERIDONE 0.25 MG TAB PO (08:22)
[2018-11-02] MEDS: DUTASTERIDE 0.5 MG CAP PO (08:22)
[2018-11-02] MEDS: ASPIRIN (EC) 81 MG TAB PO (08:22)
[2018-11-02] MEDS: MEMANTINE 10 MG TAB PO (08:22)
[2018-11-02] MEDS: BENAZEPRIL 40 MG TAB PO (08:23)
[2018-11-02] MEDS: DONEPEZIL 10 MG TAB PO (08:23)
[2018-11-02] MEDS: TAMSULOSIN (SR) 0.4 MG CAP PO (20:17)
[2018-11-02] MEDS: ESCITALOPRAM 10 MG TAB PO (20:17)
[2018-11-03] MEDS: PANTOPRAZOLE (EC) 40 MG TAB PO (05:40)
[2018-11-03] MEDS: DONEPEZIL 10 MG TAB PO (08:35)
[2018-11-03] MEDS: BENAZEPRIL 40 MG TAB PO (08:35)
[2018-11-03] MEDS: DUTASTERIDE 0.5 MG CAP PO (08:35)
[2018-11-03] MEDS: DOCUSATE SODIUM 250 MG CAP PO ×2 (08:35→20:43)
[2018-11-03] MEDS: ASPIRIN (EC) 81 MG TAB PO (08:36)
[2018-11-03] MEDS: CHOLECALCIFEROL 400 UNITS TAB PO (08:36)
[2018-11-03] MEDS: RISPERIDONE 0.25 MG TAB PO (08:36)
[2018-11-03 08:43] LABS: ADD MAN DIFF? NO
[2018-11-03 08:48] LABS: ABNORMAL IP MESSAGE 1; EOSINOPHILS % 0.4 % (0.0-7.0); HEMATOCRIT 39.3 % (42.0-52.0); HEMOGLOBIN 12.5 g/dl (14.0-18.0); LYMPHOCYTES # 1.1 10^3/ul (0.8-2.9); LYMPHOCYTES % 44.5 % (15.0-51.0); MEAN CORPUSCULAR HEMOGLOBIN 26.5 pg (29.0-33.0); MEAN CORPUSCULAR HGB CONC 31.8 g/dl (32.0-37.0); MEAN CORPUSCULAR VOLUME 83.3 fl (82.0-101.0); MEAN PLATELET VOLUME 10.7 fl (7.4-10.4); MONOCYTE # 0.5 10^3/ul (0.3-0.9); MONOCYTES % 19.9 % (0.0-11.0); NEUTROPHIL # 0.9 10^3/ul (1.6-7.5); NEUTROPHILS % 34.8 % (39.0-77.0); PLATELET COUNT 96 10^3/UL (140-415); POSITIVE DIFF @See below; RED BLOOD COUNT 4.72 10^6/ul (4.70-6.10); RED CELL DISTRIBUTION WIDTH 15.2 % (11.5-14.5)
[2018-11-03 08:48] LABS: WHITE BLOOD COUNT 2.6 10^3/ul (4.8-10.8)
[2018-11-03] MEDS: MEMANTINE 10 MG TAB PO (09:16)
[2018-11-03 09:18] LABS: ANION GAP 2 (5-13); BLOOD UREA NITROGEN 13 mg/dl (7-20); CALCIUM 9.3 mg/dl (8.4-10.2); CARBON DIOXIDE 32 mmol/L (21-31); CHLORIDE 106 mmol/L (97-110); GLUCOSE 104 mg/dl (70-220); POTASSIUM 4.3 mmol/L (3.5-5.1); SODIUM 140 mmol/L (135-144)
[2018-11-03] MEDS: TAMSULOSIN (SR) 0.4 MG CAP PO (20:43)
[2018-11-03] MEDS: ESCITALOPRAM 10 MG TAB PO (20:43)
[2018-11-04] MEDS: PANTOPRAZOLE (EC) 40 MG TAB PO (05:52)
[2018-11-04] MEDS: DUTASTERIDE 0.5 MG CAP PO (08:09)
[2018-11-04] MEDS: BENAZEPRIL 40 MG TAB PO (08:09)
[2018-11-04] MEDS: ASPIRIN (EC) 81 MG TAB PO (08:09)
[2018-11-04] MEDS: RISPERIDONE 0.25 MG TAB PO (08:09)
[2018-11-04] MEDS: MEMANTINE 10 MG TAB PO (08:09)
[2018-11-04] MEDS: CHOLECALCIFEROL 400 UNITS TAB PO (08:09)
[2018-11-04] MEDS: DOCUSATE SODIUM 250 MG CAP PO ×2 (08:09→20:43)
[2018-11-04] MEDS: DONEPEZIL 10 MG TAB PO (08:10)
[2018-11-04] MEDS: SOD FERRIC GLUC COMPLX 125 MG in SOD CHLORIDE 0.9% 100 ML IVPB (12:50)
[2018-11-04] MEDS: ESCITALOPRAM 10 MG TAB PO (20:43)
[2018-11-04] MEDS: TAMSULOSIN (SR) 0.4 MG CAP PO (20:43)
[2018-11-05] MEDS: PANTOPRAZOLE (EC) 40 MG TAB PO (05:40)
[2018-11-05 05:49] LABS: ADD MAN DIFF? NO
[2018-11-05 05:56] LABS: ABNORMAL IP MESSAGE 1; EOSINOPHILS % 0.4 % (0.0-7.0); HEMATOCRIT 40.4 % (42.0-52.0); LYMPHOCYTES # 1.1 10^3/ul (0.8-2.9); MEAN CORPUSCULAR HEMOGLOBIN 26.4 pg (29.0-33.0); MEAN CORPUSCULAR HGB CONC 32.2 g/dl (32.0-37.0); MEAN CORPUSCULAR VOLUME 82.1 fl (82.0-101.0); MEAN PLATELET VOLUME 11.4 fl (7.4-10.4); MONOCYTE # 0.5 10^3/ul (0.3-0.9); MONOCYTES % 19.1 % (0.0-11.0); NEUTROPHIL # 1.1 10^3/ul (1.6-7.5); NEUTROPHILS % 39.1 % (39.0-77.0); PLATELET COUNT 97 10^3/UL (140-415); POSITIVE DIFF @See below; RED BLOOD COUNT 4.92 10^6/ul (4.70-6.10); RED CELL DISTRIBUTION WIDTH 15.4 % (11.5-14.5)
[2018-11-05 05:56] LABS: WHITE BLOOD COUNT 2.8 10^3/ul (4.8-10.8)
[2018-11-05 06:24] LABS: ANION GAP 11 (5-13); BLOOD UREA NITROGEN 15 mg/dl (7-20); CALCIUM 9.5 mg/dl (8.4-10.2); CARBON DIOXIDE 26 mmol/L (21-31); CHLORIDE 104 mmol/L (97-110); CREATININE 0.75 mg/dl (0.61-1.24); GLUCOSE 100 mg/dl (70-220); SODIUM 141 mmol/L (135-144)
[2018-11-05] MEDS: CHOLECALCIFEROL 400 UNITS TAB PO (08:41)
[2018-11-05] MEDS: BENAZEPRIL 40 MG TAB PO (08:42)
[2018-11-05] MEDS: DUTASTERIDE 0.5 MG CAP PO (08:42)
[2018-11-05] MEDS: ASPIRIN (EC) 81 MG TAB PO (08:42)
[2018-11-05] MEDS: DOCUSATE SODIUM 250 MG CAP PO ×2 (08:42→20:31)
[2018-11-05] MEDS: MEMANTINE 10 MG TAB PO (08:42)
[2018-11-05] MEDS: DONEPEZIL 10 MG TAB PO (08:42)
[2018-11-05] MEDS: RISPERIDONE 0.25 MG TAB PO (08:43)
[2018-11-05] MEDS: SOD FERRIC GLUC COMPLX 125 MG in SOD CHLORIDE 0.9% 100 ML IVPB (13:09)
[2018-11-05] MEDS: morphine LIQ (10 MG/5 ML) CUP PO (20:31)
[2018-11-05] MEDS: ESCITALOPRAM 10 MG TAB PO (20:31)
[2018-11-05] MEDS: TAMSULOSIN (SR) 0.4 MG CAP PO (20:31)
[2018-11-06] MEDS: morphine LIQ (10 MG/5 ML) CUP PO ×3 (03:26→20:11)
[2018-11-06] MEDS: PANTOPRAZOLE (EC) 40 MG TAB PO (06:27)
[2018-11-06] MEDS: CHOLECALCIFEROL 400 UNITS TAB PO (08:55)
[2018-11-06] MEDS: DOCUSATE SODIUM 250 MG CAP PO ×2 (08:55→20:14)
[2018-11-06] MEDS: DONEPEZIL 10 MG TAB PO (08:55)
[2018-11-06] MEDS: RISPERIDONE 0.25 MG TAB PO (08:55)
[2018-11-06] MEDS: MEMANTINE 10 MG TAB PO (08:55)
[2018-11-06] MEDS: ASPIRIN (EC) 81 MG TAB PO (08:55)
[2018-11-06] MEDS: DUTASTERIDE 0.5 MG CAP PO (08:55)
[2018-11-06] MEDS: BENAZEPRIL 40 MG TAB PO (08:56)
[2018-11-06] MEDS: SOD FERRIC GLUC COMPLX 125 MG in SOD CHLORIDE 0.9% 100 ML IVPB (12:04)
[2018-11-06] MEDS: ESCITALOPRAM 10 MG TAB PO (20:13)
[2018-11-06] MEDS: TAMSULOSIN (SR) 0.4 MG CAP PO (20:13)
[2018-11-07] MEDS: PANTOPRAZOLE (EC) 40 MG TAB PO (05:31)
[2018-11-07] MEDS: RISPERIDONE 0.25 MG TAB PO (08:30)
[2018-11-07] MEDS: DOCUSATE SODIUM 250 MG CAP PO ×2 (08:30→21:14)
[2018-11-07] MEDS: ASPIRIN (EC) 81 MG TAB PO (08:31)
[2018-11-07] MEDS: MEMANTINE 10 MG TAB PO (08:31)
[2018-11-07] MEDS: BENAZEPRIL 40 MG TAB PO (08:31)
[2018-11-07] MEDS: CHOLECALCIFEROL 400 UNITS TAB PO (08:31)
[2018-11-07] MEDS: DUTASTERIDE 0.5 MG CAP PO (08:31)
[2018-11-07] MEDS: DONEPEZIL 10 MG TAB PO (08:32)
[2018-11-07] MEDS: SOD FERRIC GLUC COMPLX 125 MG in SOD CHLORIDE 0.9% 100 ML IVPB (13:15)
[2018-11-07] MEDS: ESCITALOPRAM 10 MG TAB PO (21:14)
[2018-11-07] MEDS: TAMSULOSIN (SR) 0.4 MG CAP PO (21:15)
[2018-11-08] MEDS: PANTOPRAZOLE (EC) 40 MG TAB PO (06:24)
[2018-11-08] MEDS: ASPIRIN (EC) 81 MG TAB PO (08:17)
[2018-11-08] MEDS: MEMANTINE 10 MG TAB PO (08:17)
[2018-11-08] MEDS: DOCUSATE SODIUM 250 MG CAP PO ×2 (08:17→20:27)
[2018-11-08] MEDS: BENAZEPRIL 40 MG TAB PO (08:17)
[2018-11-08] MEDS: CHOLECALCIFEROL 400 UNITS TAB PO (08:17)
[2018-11-08] MEDS: RISPERIDONE 0.25 MG TAB PO (08:17)
[2018-11-08] MEDS: DUTASTERIDE 0.5 MG CAP PO (08:17)
[2018-11-08] MEDS: DONEPEZIL 10 MG TAB PO (08:17)
[2018-11-08] MEDS: SOD FERRIC GLUC COMPLX 125 MG in SOD CHLORIDE 0.9% 100 ML IVPB (11:24)
[2018-11-08] MEDS: ESCITALOPRAM 10 MG TAB PO (20:27)
[2018-11-08] MEDS: TAMSULOSIN (SR) 0.4 MG CAP PO (20:27)
[2018-11-08] MEDS: ACETAMINOPHEN 325 MG TAB PO (20:33)
[2018-11-09] MEDS: ACETAMINOPHEN 325 MG TAB PO ×2 (02:15→14:37)
[2018-11-09] MEDS: PANTOPRAZOLE (EC) 40 MG TAB PO (06:29)
[2018-11-09] MEDS: morphine LIQ (10 MG/5 ML) CUP PO ×2 (08:21→20:34)
[2018-11-09] MEDS: DUTASTERIDE 0.5 MG CAP PO (08:22)
[2018-11-09] MEDS: DOCUSATE SODIUM 250 MG CAP PO ×2 (08:22→20:32)
[2018-11-09] MEDS: DONEPEZIL 10 MG TAB PO (08:22)
[2018-11-09] MEDS: RISPERIDONE 0.25 MG TAB PO (08:22)
[2018-11-09] MEDS: CHOLECALCIFEROL 400 UNITS TAB PO (08:22)
[2018-11-09] MEDS: MEMANTINE 10 MG TAB PO (08:22)
[2018-11-09] MEDS: ASPIRIN (EC) 81 MG TAB PO (08:22)
[2018-11-09] MEDS: BENAZEPRIL 40 MG TAB PO ×2 (08:26→08:51)
[2018-11-09] MEDS: ESCITALOPRAM 10 MG TAB PO (20:32)
[2018-11-09] MEDS: TAMSULOSIN (SR) 0.4 MG CAP PO (20:32)
[2018-11-10] MEDS: morphine LIQ (10 MG/5 ML) CUP PO ×3 (03:23→15:12)
[2018-11-10] MEDS: PANTOPRAZOLE (EC) 40 MG TAB PO (05:28)
[2018-11-10] MEDS: ACETAMINOPHEN 325 MG TAB PO ×2 (05:28→13:21)
[2018-11-10 07:18] LABS: ABNORMAL IP MESSAGE 1; HEMATOCRIT 37.7 % (42.0-52.0); HEMOGLOBIN 11.9 g/dl (14.0-18.0); MEAN CORPUSCULAR HEMOGLOBIN 26.4 pg (29.0-33.0); MEAN CORPUSCULAR HGB CONC 31.6 g/dl (32.0-37.0); MEAN CORPUSCULAR VOLUME 83.8 fl (82.0-101.0); MEAN PLATELET VOLUME 11.5 fl (7.4-10.4); PLATELET COUNT 81 10^3/UL (140-415); POSITIVE DIFF @See below; RED CELL DISTRIBUTION WIDTH 15.6 % (11.5-14.5)
[2018-11-10 07:18] LABS: WHITE BLOOD COUNT 3.1 10^3/ul (4.8-10.8)
[2018-11-10 07:40] LABS: ADD MAN DIFF? YES
[2018-11-10 07:52] LABS: ANION GAP 13 (5-13); BLOOD UREA NITROGEN 10 mg/dl (7-20); CALCIUM 8.9 mg/dl (8.4-10.2); CARBON DIOXIDE 28 mmol/L (21-31); CHLORIDE 100 mmol/L (97-110); CREATININE 0.72 mg/dl (0.61-1.24); GLUCOSE 98 mg/dl (70-220); SODIUM 141 mmol/L (135-144)
[2018-11-10] MEDS: DOCUSATE SODIUM 250 MG CAP PO (08:16)
[2018-11-10] MEDS: RISPERIDONE 0.25 MG TAB PO (08:16)
[2018-11-10] MEDS: MEMANTINE 10 MG TAB PO (08:16)
[2018-11-10] MEDS: ASPIRIN (EC) 81 MG TAB PO (08:16)
[2018-11-10] MEDS: DUTASTERIDE 0.5 MG CAP PO (08:16)
[2018-11-10] MEDS: CHOLECALCIFEROL 400 UNITS TAB PO (08:16)
[2018-11-10] MEDS: DONEPEZIL 10 MG TAB PO (08:16)
[2018-11-10] MEDS: BENAZEPRIL 40 MG TAB PO (08:17)
[2018-11-10 10:53] LABS: ANISOCYTOSIS 2+ (0-0); BAND NEUTROPHILS #M 0.1 10^3/ul (0.0-0.6); BAND NEUTROPHILS % (M) 5 % (0-4); GIANT THROMBO% (M) 1 % (0-0); HYPOCHROMASIA 1+ (0-0); LYMPHOCYTES #M 0.7 10^3/ul (0.8-2.9); LYMPHOCYTES % (M) 24 % (15-51); METAMYELOCYTES %M 1 % (0-0); MICROCYTOSIS 1+ (0-0); MONOCYTE #M 0.5 10^3/ul (0.3-0.9); MONOCYTES % (M) 18 % (0-11); OVALOCYTES 1+ (0-0); PLATELET ESTIMATE DECREASED; POIKILOCYTOSIS 1+ (0-0); POLYCHROMASIA 1+ (0-0); REACTIVE LYMPHOCYTES #M 0.1 10^3/ul (0.0-0.0); REACTIVE LYMPHOCYTES% (M) 4 % (0-0); SEG NEUT #M 1.5 10^3/ul (1.6-7.5); SEGMENTED NEUTROPHILS (M) % 48 % (39-77); SMUDGE%M 1 % (0-0)
== END 2018-11-10 20:30 | DRG 803 ==
LOC: E/R 18:46 → 5EC 20:10
PROC: 0QB33ZX Excision of Left Pelvic Bone, Percutaneous Approach, Diagnostic (ICD-10-PCS; principal; 2018-10-29)
PROC: 07DR3ZX Extraction of Iliac Bone Marrow, Percutaneous Approach, Diagnostic (ICD-10-PCS; 2018-10-29)
DX: D61.818 Other pancytopenia (principal); N39.0 Urinary tract infection, site not specified; E87.1 Hypo-osmolality and hyponatremia; E86.0 Dehydration; I10 Essential (primary) hypertension; N40.0 Benign prostatic hyperplasia without lower urinary tract symptoms; F29 Unspecified psychosis not due to a substance or known physiological condition; J44.9 Chronic obstructive pulmonary disease, unspecified; M81.0 Age-related osteoporosis without current pathological fracture; F32.9 Major depressive disorder, single episode, unspecified; G30.9 Alzheimer's disease, unspecified; F02.80 Dementia in other diseases classified elsewhere, unspecified severity, without behavioral disturbance, psychotic disturbance, mood disturbance, and anxiety; K76.0 Fatty (change of) liver, not elsewhere classified; D53.9 Nutritional anemia, unspecified; I80.8 Phlebitis and thrombophlebitis of other sites; R91.8 Other nonspecific abnormal finding of lung field; I51.89 Other ill-defined heart diseases
CPT/HCPCS: 36415; 70450; 71045; 77012; 80048; 80053; 81001; 82607; 82746; 83036; 83090; 83615; 83690; 83921; 84155; 84165; 84484; 85025; 87081; 87086; 88305; 88311; 88313; 93005; 93306; 93971; 99217; 99285-25; G0378

== ENCOUNTER 2018-12-10 07:01 | Inpatient (IN) | payer MEDICARE, OTHER ==
[2018-12-10 08:29] LABS: ADD MAN DIFF? NO
[2018-12-10 08:33] LABS: WHITE BLOOD COUNT 3.6 10^3/ul (4.8-10.8)
[2018-12-10 08:33] LABS: ABNORMAL IP MESSAGE 1; BASOPHILS % 0.3 % (0.0-2.0); HEMATOCRIT 42.1 % (42.0-52.0); HEMOGLOBIN 13.3 g/dl (14.0-18.0); LYMPHOCYTES % 28.9 % (15.0-51.0); MEAN CORPUSCULAR HEMOGLOBIN 26.9 pg (29.0-33.0); MEAN CORPUSCULAR HGB CONC 31.6 g/dl (32.0-37.0); MEAN CORPUSCULAR VOLUME 85.2 fl (82.0-101.0); MEAN PLATELET VOLUME 11.3 fl (7.4-10.4); MONOCYTE # 1.1 10^3/ul (0.3-0.9); MONOCYTES % 31.1 % (0.0-11.0); NEUTROPHIL # 1.4 10^3/ul (1.6-7.5); NEUTROPHILS % 38.9 % (39.0-77.0); PLATELET COUNT 77 10^3/UL (140-415); POSITIVE DIFF @See below; RED BLOOD COUNT 4.94 10^6/ul (4.70-6.10); RED CELL DISTRIBUTION WIDTH 17.5 % (11.5-14.5)
[2018-12-10 08:40] LABS: ALANINE AMINOTRANSFERASE 28 IU/L (13-69); ALBUMIN/GLOBULIN RATIO 1.11; ALKALINE PHOSPHATASE 38 IU/L (42-121); ANION GAP 9 (5-13); ASPARTATE AMINO TRANSFERASE 80 IU/L (15-46); BILIRUBIN,INDIRECT 0.3 mg/dl (0-1.1); BILIRUBIN,TOTAL 0.3 mg/dl (0.2-1.3); BLOOD UREA NITROGEN 13 mg/dl (7-20); CARBON DIOXIDE 30 mmol/L (21-31); CHLORIDE 102 mmol/L (97-110); CREATININE 0.91 mg/dl (0.61-1.24); GLUCOSE 109 mg/dl (70-220); POTASSIUM 3.7 mmol/L (3.5-5.1); SODIUM 141 mmol/L (135-144); TOTAL PROTEIN 7.6 g/dl (6.1-8.1)
[2018-12-10 08:42] LABS: INR 1.17; PT RATIO 1.2
[2018-12-10 08:43] LABS: PARTIAL THROMBOPLASTIN TIME 33.3 Sec (23.0-35.0)
[2018-12-10] MEDS: SOD CHLORIDE 0.9% 100 ML (09:48)
[2018-12-10] MEDS: IOHEXOL 300MG/ML 150 ML BTL (09:48)
[2018-12-10 10:14] LABS: ADD UMIC YES; UR CLARITY BLOODY (CLEAR); UR COLOR RED (YELLOW)
[2018-12-10 10:17] LABS: UR BILIRUBIN (Dip) NEGATIVE (NEGATIVE); UR BLOOD (Dip) 3+ mg/dL (NEGATIVE); UR GLUCOSE (Dip) NEGATIVE (NEGATIVE); UR KETONES (Dip) NEGATIVE (NEGATIVE); UR TOTAL PROTEIN (Dip) 2+ mg/dl (NEGATIVE)
[2018-12-10 10:18] LABS: UR ASCORBIC ACID NEGATIVE (NEGATIVE); UR LEUKOCYTE ESTERASE (Dip) NEGATIVE Leu/ul (NEGATIVE); UR NITRITE (Dip) NEGATIVE (NEGATIVE); UR UROBILINOGEN (Dip) 0.2 E.U./dL mg/dL (NEGATIVE)
[2018-12-10 10:19] LABS: UR BACTERIA MODERATE /HPF (NONE SEEN); URINE RBCS >200 /HPF (0)
[2018-12-10] MEDS: ACETAMINOPHEN 500 MG TAB PO (11:22)
[2018-12-10] MEDS ORDERED: SOD CHLORIDE 0.9% 1,000 ML IV (11:23)
[2018-12-10] MEDS ORDERED: ONDANSETRON 4 MG INJ IV (11:30)
[2018-12-10] MEDS ORDERED: ACETAMINOPHEN 325 MG TAB PO (11:30)
[2018-12-10] MEDS: CEFEPIME 1GM/50 ML (PMX) 50 ML IVPB ×2 (13:07→21:19)
[2018-12-10] MEDS: ACETAMINOPHEN 325 MG TAB PO (19:47)
[2018-12-10] MEDS: RISPERIDONE 0.25 MG TAB PO (19:47)
[2018-12-10 21:06] LABS: PROSTATE SPECIFIC ANTIGEN 4.6 ng/ml (0.0-4.0)
[2018-12-10] MEDS: TAMSULOSIN (SR) 0.4 MG CAP PO (21:18)
[2018-12-10] MEDS: ATORVASTATIN 20 MG TAB PO (21:19)
[2018-12-10] MEDS: DOCUSATE SODIUM 250 MG CAP PO (21:19)
[2018-12-11] MEDS: PANTOPRAZOLE (EC) 40 MG TAB PO (05:42)
[2018-12-11 06:04] LABS: ADD MAN DIFF? NO
[2018-12-11 06:14] LABS: WHITE BLOOD COUNT 3.5 10^3/ul (4.8-10.8)
[2018-12-11 06:14] LABS: ABNORMAL IP MESSAGE 1; HEMATOCRIT 38.2 % (42.0-52.0); HEMOGLOBIN 12.4 g/dl (14.0-18.0); LYMPHOCYTES # 0.8 10^3/ul (0.8-2.9); LYMPHOCYTES % 23.5 % (15.0-51.0); MEAN CORPUSCULAR HEMOGLOBIN 27.1 pg (29.0-33.0); MEAN CORPUSCULAR HGB CONC 32.5 g/dl (32.0-37.0); MEAN CORPUSCULAR VOLUME 83.4 fl (82.0-101.0); MEAN PLATELET VOLUME 11.4 fl (7.4-10.4); MONOCYTE # 0.9 10^3/ul (0.3-0.9); MONOCYTES % 26.9 % (0.0-11.0); NEUTROPHIL # 1.7 10^3/ul (1.6-7.5); PLATELET COUNT 78 10^3/UL (140-415); POSITIVE DIFF @See below; RED BLOOD COUNT 4.58 10^6/ul (4.70-6.10); RED CELL DISTRIBUTION WIDTH 17.2 % (11.5-14.5)
[2018-12-11 06:48] LABS: ANION GAP 13 (5-13); BLOOD UREA NITROGEN 15 mg/dl (7-20); CALCIUM 8.2 mg/dl (8.4-10.2); CARBON DIOXIDE 27 mmol/L (21-31); CHLORIDE 98 mmol/L (97-110); CREATININE 0.67 mg/dl (0.61-1.24); GLUCOSE 114 mg/dl (70-220); POTASSIUM 3.4 mmol/L (3.5-5.1); SODIUM 138 mmol/L (135-144)
[2018-12-11] MEDS: DOCUSATE SODIUM 250 MG CAP PO ×3 (09:00→21:34)
[2018-12-11] MEDS: ESCITALOPRAM 10 MG TAB PO (09:44)
[2018-12-11] MEDS: DUTASTERIDE 0.5 MG CAP PO (09:44)
[2018-12-11] MEDS: FERROUS SULFATE (EC) 325 MG TAB PO (09:45)
[2018-12-11] MEDS: CHOLECALCIFEROL 400 UNITS TAB PO (09:45)
[2018-12-11] MEDS: DONEPEZIL 10 MG TAB PO (09:45)
[2018-12-11] MEDS: RISPERIDONE 0.25 MG TAB PO (09:45)
[2018-12-11] MEDS: MEMANTINE 10 MG TAB PO (09:45)
[2018-12-11] MEDS: BENAZEPRIL 40 MG TAB PO (09:49)
[2018-12-11] MEDS: CEFEPIME 1GM/50 ML (PMX) 50 ML IVPB ×2 (09:59→21:34)
[2018-12-11] MEDS: ACETAMINOPHEN 325 MG TAB PO (12:44)
[2018-12-11] MEDS: POTASSIUM CHLORIDE 20 MEQ POWDER FOR ORAL SOLN PO (12:44)
[2018-12-11] MEDS: TAMSULOSIN (SR) 0.4 MG CAP PO (21:34)
[2018-12-11] MEDS: ATORVASTATIN 20 MG TAB PO (21:34)
[2018-12-12] MEDS: PANTOPRAZOLE (EC) 40 MG TAB PO (05:12)
[2018-12-12] MEDS: BENAZEPRIL 40 MG TAB PO (09:04)
[2018-12-12] MEDS: FERROUS SULFATE (EC) 325 MG TAB PO (09:04)
[2018-12-12] MEDS: DOCUSATE SODIUM 250 MG CAP PO ×3 (09:04→12:18)
[2018-12-12] MEDS: DONEPEZIL 10 MG TAB PO (09:05)
[2018-12-12] MEDS: CEFEPIME 1GM/50 ML (PMX) 50 ML IVPB ×2 (09:05→20:29)
[2018-12-12] MEDS: ESCITALOPRAM 10 MG TAB PO (09:05)
[2018-12-12] MEDS: MEMANTINE 10 MG TAB PO (09:05)
[2018-12-12] MEDS: RISPERIDONE 0.25 MG TAB PO (09:10)
[2018-12-12] MEDS: CHOLECALCIFEROL 400 UNITS TAB PO (09:53)
[2018-12-12] MEDS: DUTASTERIDE 0.5 MG CAP PO (09:53)
[2018-12-12] MEDS: ACETAMINOPHEN 325 MG TAB PO ×2 (11:16→18:06)
[2018-12-12 15:11] LABS: OCCULT BLOOD STOOL NEGATIVE (NEGATIVE)
[2018-12-12] MEDS: ATORVASTATIN 20 MG TAB PO (20:29)
[2018-12-12] MEDS: TAMSULOSIN (SR) 0.4 MG CAP PO (20:29)
[2018-12-13] MEDS: ACETAMINOPHEN 325 MG TAB PO ×4 (03:37→23:53)
[2018-12-13] MEDS: PANTOPRAZOLE (EC) 40 MG TAB PO (05:23)
[2018-12-13] MEDS: CHOLECALCIFEROL 400 UNITS TAB PO (08:45)
[2018-12-13] MEDS: BENAZEPRIL 40 MG TAB PO (08:45)
[2018-12-13] MEDS: MEMANTINE 10 MG TAB PO (08:45)
[2018-12-13] MEDS: ESCITALOPRAM 10 MG TAB PO (08:45)
[2018-12-13] MEDS: DONEPEZIL 10 MG TAB PO (08:45)
[2018-12-13] MEDS: DUTASTERIDE 0.5 MG CAP PO (08:45)
[2018-12-13] MEDS: CEFEPIME 1GM/50 ML (PMX) 50 ML IVPB ×2 (08:45→21:10)
[2018-12-13] MEDS: FERROUS SULFATE (EC) 325 MG TAB PO (08:45)
[2018-12-13] MEDS: RISPERIDONE 0.25 MG TAB PO (10:13)
[2018-12-13] MEDS: TAMSULOSIN (SR) 0.4 MG CAP PO (21:10)
[2018-12-13] MEDS: ATORVASTATIN 20 MG TAB PO (21:10)
[2018-12-13] MEDS: traMADol 50 MG TAB PO (22:44)
[2018-12-14] MEDS: PANTOPRAZOLE (EC) 40 MG TAB PO (05:11)
[2018-12-14] MEDS: ESCITALOPRAM 10 MG TAB PO (09:51)
[2018-12-14] MEDS: DONEPEZIL 10 MG TAB PO (09:51)
[2018-12-14] MEDS: FERROUS SULFATE (EC) 325 MG TAB PO (09:51)
[2018-12-14] MEDS: CHOLECALCIFEROL 400 UNITS TAB PO (09:51)
[2018-12-14] MEDS: BENAZEPRIL 40 MG TAB PO (09:51)
[2018-12-14] MEDS: MEMANTINE 10 MG TAB PO (09:52)
[2018-12-14] MEDS: DUTASTERIDE 0.5 MG CAP PO (09:52)
[2018-12-14] MEDS: CEFEPIME 1GM/50 ML (PMX) 50 ML IVPB ×2 (09:52→23:02)
[2018-12-14] MEDS: RISPERIDONE 0.25 MG TAB PO (10:44)
[2018-12-14] MEDS: ATORVASTATIN 20 MG TAB PO (23:02)
[2018-12-14] MEDS: TAMSULOSIN (SR) 0.4 MG CAP PO (23:03)
[2018-12-14] MEDS: traMADol 50 MG TAB PO (23:06)
[2018-12-15] MEDS: ACETAMINOPHEN 325 MG TAB PO (02:11)
[2018-12-15] MEDS: PANTOPRAZOLE (EC) 40 MG TAB PO (05:49)
[2018-12-15] MEDS: traMADol 50 MG TAB PO (05:49)
[2018-12-15 05:54] LABS: WHITE BLOOD COUNT 2.7 10^3/ul (4.8-10.8)
[2018-12-15 05:54] LABS: ABNORMAL IP MESSAGE 1; HEMATOCRIT 37.2 % (42.0-52.0); MEAN CORPUSCULAR HEMOGLOBIN 27.1 pg (29.0-33.0); MEAN CORPUSCULAR HGB CONC 32.3 g/dl (32.0-37.0); MEAN CORPUSCULAR VOLUME 84.2 fl (82.0-101.0); MEAN PLATELET VOLUME 10.5 fl (7.4-10.4); PLATELET COUNT 115 10^3/UL (140-415); POSITIVE DIFF @See below; RED BLOOD COUNT 4.42 10^6/ul (4.70-6.10)
[2018-12-15 06:09] LABS: ADD MAN DIFF? YES
[2018-12-15 06:53] LABS: ANION GAP 9 (5-13); BLOOD UREA NITROGEN 12 mg/dl (7-20); CALCIUM 9.1 mg/dl (8.4-10.2); CARBON DIOXIDE 25 mmol/L (21-31); CHLORIDE 107 mmol/L (97-110); CREATININE 0.67 mg/dl (0.61-1.24); GLUCOSE 120 mg/dl (70-220); POTASSIUM 4.1 mmol/L (3.5-5.1); SODIUM 141 mmol/L (135-144)
[2018-12-15 07:29] LABS: ANISOCYTOSIS 1+ (0-0); BAND NEUTROPHILS % (M) 3 % (0-4); ELLIPTO 1+ (0-0); EOSINOPHILS % (M) 4 % (0-7); GIANT THROMBO% (M) 2 % (0-0); LYMPHOCYTES #M 1.2 10^3/ul (0.8-2.9); LYMPHOCYTES % (M) 48 % (15-51); METAMYELOCYTES %M 1 % (0-0); MICROCYTOSIS 1+ (0-0); MONOCYTE #M 0.3 10^3/ul (0.3-0.9); MONOCYTES % (M) 14 % (0-11); MYELOCYTES % (M) 2 % (0-0); OVALOCYTES 1+ (0-0); PLATELET ESTIMATE DECREASED; POIKILOCYTOSIS 2+ (0-0); POLYCHROMASIA 3+ (0-0); REACTIVE LYMPHOCYTES #M 0.1 10^3/ul (0.0-0.0); REACTIVE LYMPHOCYTES% (M) 4 % (0-0); SCHISTOCYTES 1+ (0-0); SEG NEUT #M 0.6 10^3/ul (1.6-7.5); SEGMENTED NEUTROPHILS (M) % 24 % (39-77); SMUDGE%M 2 % (0-0)
[2018-12-15] MEDS: CEFEPIME 1GM/50 ML (PMX) 50 ML IVPB (10:01)
[2018-12-15] MEDS: DONEPEZIL 10 MG TAB PO (10:02)
[2018-12-15] MEDS: DUTASTERIDE 0.5 MG CAP PO (10:02)
[2018-12-15] MEDS: FERROUS SULFATE (EC) 325 MG TAB PO (10:03)
[2018-12-15] MEDS: ESCITALOPRAM 10 MG TAB PO (10:03)
[2018-12-15] MEDS: MEMANTINE 10 MG TAB PO (10:03)
[2018-12-15] MEDS: BENAZEPRIL 40 MG TAB PO (10:03)
[2018-12-15] MEDS: CHOLECALCIFEROL 400 UNITS TAB PO (10:04)
[2018-12-15] MEDS: RISPERIDONE 0.25 MG TAB PO (10:04)
[2018-12-16] MEDS: TAMSULOSIN (SR) 0.4 MG CAP PO ×2 (00:35→22:28)
[2018-12-16] MEDS: ATORVASTATIN 20 MG TAB PO ×2 (00:36→22:28)
[2018-12-16] MEDS: CEFEPIME 1GM/50 ML (PMX) 50 ML IVPB ×3 (00:38→22:29)
[2018-12-16] MEDS: traMADol 50 MG TAB PO (00:40)
[2018-12-16 05:54] LABS: ADD MAN DIFF? NO
[2018-12-16 06:03] LABS: EOSINOPHILS % 0.6 % (0.0-7.0); HEMATOCRIT 40.6 % (42.0-52.0); LYMPHOCYTES # 1.5 10^3/ul (0.8-2.9); LYMPHOCYTES % 45.5 % (15.0-51.0); MEAN CORPUSCULAR HEMOGLOBIN 27.1 pg (29.0-33.0); MEAN CORPUSCULAR VOLUME 84.6 fl (82.0-101.0); MEAN PLATELET VOLUME 10.8 fl (7.4-10.4); MONOCYTE # 0.5 10^3/ul (0.3-0.9); MONOCYTES % 14.8 % (0.0-11.0); NEUTROPHIL # 1.2 10^3/ul (1.6-7.5); NEUTROPHILS % 36.7 % (39.0-77.0); PLATELET COUNT 132 10^3/UL (140-415); POSITIVE DIFF @See below; RED CELL DISTRIBUTION WIDTH 17.1 % (11.5-14.5)
[2018-12-16 06:03] LABS: WHITE BLOOD COUNT 3.3 10^3/ul (4.8-10.8)
[2018-12-16] MEDS: PANTOPRAZOLE (EC) 40 MG TAB PO (06:10)
[2018-12-16] MEDS: FERROUS SULFATE (EC) 325 MG TAB PO (08:44)
[2018-12-16] MEDS: BENAZEPRIL 40 MG TAB PO (08:45)
[2018-12-16] MEDS: DUTASTERIDE 0.5 MG CAP PO (08:45)
[2018-12-16] MEDS: ESCITALOPRAM 10 MG TAB PO (08:45)
[2018-12-16] MEDS: CHOLECALCIFEROL 400 UNITS TAB PO (08:45)
[2018-12-16] MEDS: DONEPEZIL 10 MG TAB PO (08:45)
[2018-12-16] MEDS: RISPERIDONE 0.25 MG TAB PO ×2 (08:45→22:28)
[2018-12-16] MEDS: MEMANTINE 10 MG TAB PO (08:46)
[2018-12-17] MEDS: PANTOPRAZOLE (EC) 40 MG TAB PO (06:03)
[2018-12-17 06:55] LABS: ADD MAN DIFF? NO
[2018-12-17 06:56] LABS: BASOPHILS % 0.3 % (0.0-2.0); HEMATOCRIT 39.5 % (42.0-52.0); HEMOGLOBIN 12.5 g/dl (14.0-18.0); LYMPHOCYTES # 1.1 10^3/ul (0.8-2.9); LYMPHOCYTES % 36.5 % (15.0-51.0); MEAN CORPUSCULAR HEMOGLOBIN 26.6 pg (29.0-33.0); MEAN CORPUSCULAR HGB CONC 31.6 g/dl (32.0-37.0); MONOCYTE # 0.5 10^3/ul (0.3-0.9); MONOCYTES % 16.5 % (0.0-11.0); NEUTROPHIL # 1.4 10^3/ul (1.6-7.5); NEUTROPHILS % 44.1 % (39.0-77.0); PLATELET COUNT 153 10^3/UL (140-415)
[2018-12-17 06:56] LABS: WHITE BLOOD COUNT 3.1 10^3/ul (4.8-10.8)
[2018-12-17 07:24] LABS: ANION GAP 9 (5-13); BLOOD UREA NITROGEN 11 mg/dl (7-20); CALCIUM 9.7 mg/dl (8.4-10.2); CARBON DIOXIDE 26 mmol/L (21-31); CHLORIDE 106 mmol/L (97-110); GLUCOSE 121 mg/dl (70-220); POTASSIUM 4.1 mmol/L (3.5-5.1); SODIUM 141 mmol/L (135-144)
[2018-12-17] MEDS: CEFEPIME 1GM/50 ML (PMX) 50 ML IVPB ×2 (08:27→20:53)
[2018-12-17] MEDS: ESCITALOPRAM 10 MG TAB PO (08:31)
[2018-12-17] MEDS: DUTASTERIDE 0.5 MG CAP PO (08:31)
[2018-12-17] MEDS: DONEPEZIL 10 MG TAB PO (08:32)
[2018-12-17] MEDS: FERROUS SULFATE (EC) 325 MG TAB PO (08:32)
[2018-12-17] MEDS: MEMANTINE 10 MG TAB PO (08:32)
[2018-12-17] MEDS: CHOLECALCIFEROL 400 UNITS TAB PO (08:33)
[2018-12-17] MEDS: BENAZEPRIL 40 MG TAB PO (08:33)
[2018-12-17] MEDS ORDERED: CHLORPROMAZINE 25 MG INJ IM (20:30)
[2018-12-17] MEDS ORDERED: OLANZAPINE 5 MG TAB PO (20:30)
[2018-12-17 20:50] LABS: CHOLESTEROL 119 mg/dl (100-200)
[2018-12-17 20:50] LABS: CHOL/HDL RATIO 3.6 RATIO; HDL CHOLESTEROL 33 mg/dl (31-75); LDL CHOLESTEROL,CALCULATED 63 mg/dl; TRIGLYCERIDES 113 mg/dl (0-149)
[2018-12-17] MEDS: TAMSULOSIN (SR) 0.4 MG CAP PO (20:53)
[2018-12-17] MEDS: ATORVASTATIN 20 MG TAB PO (20:53)
[2018-12-17] MEDS: OLANZAPINE 2.5 MG TAB PO (22:06)
[2018-12-18 06:35] LABS: ADD UMIC YES; UR ASCORBIC ACID NEGATIVE (NEGATIVE); UR BACTERIA FEW /HPF (NONE SEEN); UR BILIRUBIN (Dip) NEGATIVE (NEGATIVE); UR BLOOD (Dip) 3+ mg/dL (NEGATIVE); UR CLARITY CLEAR (CLEAR); UR COLOR YELLOW (YELLOW); UR GLUCOSE (Dip) NEGATIVE (NEGATIVE); UR KETONES (Dip) NEGATIVE (NEGATIVE); UR LEUKOCYTE ESTERASE (Dip) NEGATIVE Leu/ul (NEGATIVE); UR NITRITE (Dip) NEGATIVE (NEGATIVE); UR RBC 61 /HPF (0-5); UR SPECIFIC GRAVITY (Dip) 1.008 (1.003-1.030); UR TOTAL PROTEIN (Dip) 1+ mg/dl (NEGATIVE); UR UROBILINOGEN (Dip) NEGATIVE (NEGATIVE); UR WBC 2 /HPF (0-5)
[2018-12-18] MEDS: PANTOPRAZOLE (EC) 40 MG TAB PO (06:39)
[2018-12-18 07:56] LABS: ADD MAN DIFF? NO
[2018-12-18 07:58] LABS: BASOPHILS % 0.3 % (0.0-2.0); EOSINOPHILS % 0.5 % (0.0-7.0); HEMATOCRIT 41.4 % (42.0-52.0); HEMOGLOBIN 12.9 g/dl (14.0-18.0); LYMPHOCYTES # 1.3 10^3/ul (0.8-2.9); LYMPHOCYTES % 34.7 % (15.0-51.0); MEAN CORPUSCULAR HEMOGLOBIN 26.7 pg (29.0-33.0); MEAN CORPUSCULAR HGB CONC 31.2 g/dl (32.0-37.0); MEAN CORPUSCULAR VOLUME 85.5 fl (82.0-101.0); MEAN PLATELET VOLUME 10.1 fl (7.4-10.4); MONOCYTE # 0.8 10^3/ul (0.3-0.9); MONOCYTES % 20.9 % (0.0-11.0); NEUTROPHIL # 1.6 10^3/ul (1.6-7.5); PLATELET COUNT 185 10^3/UL (140-415); RED BLOOD COUNT 4.84 10^6/ul (4.70-6.10)
[2018-12-18 07:58] LABS: WHITE BLOOD COUNT 3.7 10^3/ul (4.8-10.8)
[2018-12-18 08:17] LABS: ANION GAP 13 (5-13); CARBON DIOXIDE 30 mmol/L (21-31); CHLORIDE 100 mmol/L (97-110); POTASSIUM 4.2 mmol/L (3.5-5.1); SODIUM 143 mmol/L (135-144)
[2018-12-18 08:22] LABS: AMMONIA < 9 umol/l (9-30)
[2018-12-18] MEDS: CEFEPIME 1GM/50 ML (PMX) 50 ML IVPB ×2 (08:34→22:08)
[2018-12-18] MEDS: MEMANTINE 10 MG TAB PO (08:35)
[2018-12-18] MEDS: DUTASTERIDE 0.5 MG CAP PO (08:35)
[2018-12-18] MEDS: OLANZAPINE 2.5 MG TAB PO ×3 (08:35→22:07)
[2018-12-18] MEDS: FERROUS SULFATE (EC) 325 MG TAB PO (08:36)
[2018-12-18] MEDS: CHOLECALCIFEROL 400 UNITS TAB PO (08:36)
[2018-12-18] MEDS: ESCITALOPRAM 10 MG TAB PO (08:36)
[2018-12-18] MEDS: DONEPEZIL 10 MG TAB PO (08:36)
[2018-12-18 08:43] LABS: THYROID STIMULATING HORMONE 0.611 MIU/L (0.465-4.680)
[2018-12-18] MEDS: BENAZEPRIL 40 MG TAB PO (10:21)
[2018-12-18] MEDS: TAMSULOSIN (SR) 0.4 MG CAP PO (22:07)
[2018-12-18] MEDS: ATORVASTATIN 20 MG TAB PO (22:07)
[2018-12-19] MEDS: PANTOPRAZOLE (EC) 40 MG TAB PO (05:28)
[2018-12-19 07:08] LABS: ADD MAN DIFF? NO
[2018-12-19 07:16] LABS: EOSINOPHILS % 0.3 % (0.0-7.0); HEMATOCRIT 40.6 % (42.0-52.0); HEMOGLOBIN 12.6 g/dl (14.0-18.0); LYMPHOCYTES # 1.4 10^3/ul (0.8-2.9); LYMPHOCYTES % 35.9 % (15.0-51.0); MEAN CORPUSCULAR HEMOGLOBIN 26.6 pg (29.0-33.0); MEAN CORPUSCULAR VOLUME 85.8 fl (82.0-101.0); MEAN PLATELET VOLUME 10.3 fl (7.4-10.4); MONOCYTE # 0.7 10^3/ul (0.3-0.9); MONOCYTES % 18.1 % (0.0-11.0); NEUTROPHIL # 1.7 10^3/ul (1.6-7.5); NEUTROPHILS % 43.9 % (39.0-77.0); PLATELET COUNT 193 10^3/UL (140-415); RED BLOOD COUNT 4.73 10^6/ul (4.70-6.10); RED CELL DISTRIBUTION WIDTH 17.3 % (11.5-14.5)
[2018-12-19 07:16] LABS: WHITE BLOOD COUNT 3.9 10^3/ul (4.8-10.8)
[2018-12-19 07:33] LABS: ANION GAP 7 (5-13); BLOOD UREA NITROGEN 16 mg/dl (7-20); CALCIUM 9.6 mg/dl (8.4-10.2); CARBON DIOXIDE 32 mmol/L (21-31); CHLORIDE 105 mmol/L (97-110); CREATININE 0.85 mg/dl (0.61-1.24); GLUCOSE 115 mg/dl (70-220); POTASSIUM 4.4 mmol/L (3.5-5.1); SODIUM 144 mmol/L (135-144)
[2018-12-19] MEDS: MEMANTINE 10 MG TAB PO (09:19)
[2018-12-19] MEDS: DUTASTERIDE 0.5 MG CAP PO (09:19)
[2018-12-19] MEDS: ESCITALOPRAM 10 MG TAB PO (09:19)
[2018-12-19] MEDS: BENAZEPRIL 40 MG TAB PO (09:20)
[2018-12-19] MEDS: CHOLECALCIFEROL 400 UNITS TAB PO (09:20)
[2018-12-19] MEDS: DONEPEZIL 10 MG TAB PO (09:20)
[2018-12-19] MEDS: OLANZAPINE 2.5 MG TAB PO ×3 (09:21→20:49)
[2018-12-19] MEDS: CEFEPIME 1GM/50 ML (PMX) 50 ML IVPB ×2 (09:21→20:49)
[2018-12-19] MEDS: FERROUS SULFATE (EC) 325 MG TAB PO (10:26)
[2018-12-19] MEDS: TAMSULOSIN (SR) 0.4 MG CAP PO (20:49)
[2018-12-19] MEDS: ATORVASTATIN 20 MG TAB PO (20:49)
[2018-12-20] MEDS: PANTOPRAZOLE (EC) 40 MG TAB PO (06:08)
[2018-12-20] MEDS: BENAZEPRIL 40 MG TAB PO (09:36)
[2018-12-20] MEDS: DUTASTERIDE 0.5 MG CAP PO (09:36)
[2018-12-20] MEDS: FERROUS SULFATE (EC) 325 MG TAB PO (09:37)
[2018-12-20] MEDS: DONEPEZIL 10 MG TAB PO (09:37)
[2018-12-20] MEDS: CHOLECALCIFEROL 400 UNITS TAB PO (09:37)
[2018-12-20] MEDS: MEMANTINE 10 MG TAB PO (09:37)
[2018-12-20] MEDS: ESCITALOPRAM 10 MG TAB PO (09:37)
[2018-12-20] MEDS: OLANZAPINE 2.5 MG TAB PO ×3 (09:37→21:29)
[2018-12-20] MEDS: CEFEPIME 1GM/50 ML (PMX) 50 ML IVPB ×2 (09:38→21:29)
[2018-12-20] MEDS: TAMSULOSIN (SR) 0.4 MG CAP PO (21:29)
[2018-12-20] MEDS: ATORVASTATIN 20 MG TAB PO (21:29)
[2018-12-21] MEDS: PANTOPRAZOLE (EC) 40 MG TAB PO (05:49)
[2018-12-21 07:17] LABS: ADD MAN DIFF? NO
[2018-12-21 07:19] LABS: EOSINOPHILS % 0.2 % (0.0-7.0); HEMATOCRIT 41.1 % (42.0-52.0); HEMOGLOBIN 12.8 g/dl (14.0-18.0); LYMPHOCYTES # 1.5 10^3/ul (0.8-2.9); MEAN CORPUSCULAR HEMOGLOBIN 26.9 pg (29.0-33.0); MEAN CORPUSCULAR HGB CONC 31.1 g/dl (32.0-37.0); MEAN CORPUSCULAR VOLUME 86.5 fl (82.0-101.0); MEAN PLATELET VOLUME 10.1 fl (7.4-10.4); MONOCYTE # 0.9 10^3/ul (0.3-0.9); MONOCYTES % 19.9 % (0.0-11.0); NEUTROPHILS % 44.8 % (39.0-77.0); PLATELET COUNT 192 10^3/UL (140-415); RED BLOOD COUNT 4.75 10^6/ul (4.70-6.10); RED CELL DISTRIBUTION WIDTH 17.1 % (11.5-14.5)
[2018-12-21 07:19] LABS: WHITE BLOOD COUNT 4.4 10^3/ul (4.8-10.8)
[2018-12-21 07:36] LABS: ANION GAP 10 (5-13); BLOOD UREA NITROGEN 13 mg/dl (7-20); CALCIUM 9.5 mg/dl (8.4-10.2); CARBON DIOXIDE 31 mmol/L (21-31); CHLORIDE 102 mmol/L (97-110); CREATININE 0.78 mg/dl (0.61-1.24); GLUCOSE 111 mg/dl (70-220); SODIUM 143 mmol/L (135-144)
[2018-12-21] MEDS: DONEPEZIL 10 MG TAB PO (08:59)
[2018-12-21] MEDS: OLANZAPINE 2.5 MG TAB PO ×3 (09:00→21:02)
[2018-12-21] MEDS: CHOLECALCIFEROL 400 UNITS TAB PO (09:00)
[2018-12-21] MEDS: DUTASTERIDE 0.5 MG CAP PO (09:01)
[2018-12-21] MEDS: FERROUS SULFATE (EC) 325 MG TAB PO (09:01)
[2018-12-21] MEDS: MEMANTINE 10 MG TAB PO (09:01)
[2018-12-21] MEDS: BENAZEPRIL 40 MG TAB PO (09:01)
[2018-12-21] MEDS: ESCITALOPRAM 10 MG TAB PO (09:01)
[2018-12-21] MEDS: CEFEPIME 1GM/50 ML (PMX) 50 ML IVPB ×2 (09:02→21:01)
[2018-12-21] MEDS: ATORVASTATIN 20 MG TAB PO (21:02)
[2018-12-21] MEDS: TAMSULOSIN (SR) 0.4 MG CAP PO (21:02)
[2018-12-22] MEDS: PANTOPRAZOLE (EC) 40 MG TAB PO (06:29)
[2018-12-22] MEDS: ESCITALOPRAM 10 MG TAB PO (09:12)
[2018-12-22] MEDS: MEMANTINE 10 MG TAB PO (09:12)
[2018-12-22] MEDS: DUTASTERIDE 0.5 MG CAP PO (09:12)
[2018-12-22] MEDS: OLANZAPINE 2.5 MG TAB PO (09:12)
[2018-12-22] MEDS: DONEPEZIL 10 MG TAB PO (09:12)
[2018-12-22] MEDS: BENAZEPRIL 40 MG TAB PO (09:12)
[2018-12-22] MEDS: CHOLECALCIFEROL 400 UNITS TAB PO (09:12)
[2018-12-22] MEDS: FERROUS SULFATE (EC) 325 MG TAB PO (09:12)
[2018-12-22] MEDS: CEFEPIME 1GM/50 ML (PMX) 50 ML IVPB (09:13)
== END 2018-12-22 13:07 | DRG 690 ==
LOC: TEL 12-12 02:30 → 5EC 12-18 16:10 → E/R 07:01 → PP2 12-12 03:37 → TEL 11:23
PROVIDERS: Internal Medicine
DX: N30.01 Acute cystitis with hematuria (principal); F03.91 Unspecified dementia, unspecified severity, with behavioral disturbance; J98.11 Atelectasis; N40.0 Benign prostatic hyperplasia without lower urinary tract symptoms; J44.9 Chronic obstructive pulmonary disease, unspecified; I10 Essential (primary) hypertension; F29 Unspecified psychosis not due to a substance or known physiological condition; F32.9 Major depressive disorder, single episode, unspecified; E87.6 Hypokalemia; E86.0 Dehydration; G47.30 Sleep apnea, unspecified
CPT/HCPCS: 36415; 70450; 74177; 80048; 80051; 80053; 80061; 81001; 82140; 82270; 84153; 84154; 84443; 85025; 85610; 85730; 87081; 87086; 88104; 88107; 99285-25

== ENCOUNTER 2018-12-28 06:54 | Inpatient (IN) | payer MEDICARE ==
[2018-12-28 07:27] LABS: ADD MAN DIFF? NO
[2018-12-28 07:35] LABS: BASOPHILS % 0.3 % (0.0-2.0); EOSINOPHILS % 0.3 % (0.0-7.0); HEMATOCRIT 36.7 % (42.0-52.0); HEMOGLOBIN 11.7 g/dl (14.0-18.0); LYMPHOCYTES % 34.3 % (15.0-51.0); MEAN CORPUSCULAR HEMOGLOBIN 27.3 pg (29.0-33.0); MEAN CORPUSCULAR HGB CONC 31.9 g/dl (32.0-37.0); MEAN CORPUSCULAR VOLUME 85.7 fl (82.0-101.0); MEAN PLATELET VOLUME 10.4 fl (7.4-10.4); MONOCYTE # 0.6 10^3/ul (0.3-0.9); MONOCYTES % 18.2 % (0.0-11.0); NEUTROPHIL # 1.4 10^3/ul (1.6-7.5); NEUTROPHILS % 45.9 % (39.0-77.0); PLATELET COUNT 127 10^3/UL (140-415); RED BLOOD COUNT 4.28 10^6/ul (4.70-6.10); RED CELL DISTRIBUTION WIDTH 16.9 % (11.5-14.5)
[2018-12-28] MEDS: LIDOCAINE 2% 20 ML UROJET SYRINGE MM (07:39)
[2018-12-28 07:52] LABS: INR 1.08; PARTIAL THROMBOPLASTIN TIME 31.8 Sec (23.0-35.0); PROTIME 14.1 Sec (11.9-14.9); PT RATIO 1.1
[2018-12-28 07:55] LABS: ANION GAP 7 (5-13); BLOOD UREA NITROGEN 12 mg/dl (7-20); CALCIUM 9.4 mg/dl (8.4-10.2); CARBON DIOXIDE 31 mmol/L (21-31); CHLORIDE 105 mmol/L (97-110); CREATININE 0.68 mg/dl (0.61-1.24); GLUCOSE 117 mg/dl (70-220); POTASSIUM 4.1 mmol/L (3.5-5.1); SODIUM 143 mmol/L (135-144)
[2018-12-28 08:31] LABS: ADD UMIC YES; UR ASCORBIC ACID NEGATIVE (NEGATIVE); UR BACTERIA FEW /HPF (NONE SEEN); UR BILIRUBIN (Dip) NEGATIVE (NEGATIVE); UR BLOOD (Dip) 3+ mg/dL (NEGATIVE); UR CLARITY CLOUDY (CLEAR); UR COLOR RED (YELLOW); UR GLUCOSE (Dip) NEGATIVE (NEGATIVE); UR KETONES (Dip) NEGATIVE (NEGATIVE); UR LEUKOCYTE ESTERASE (Dip) NEGATIVE Leu/ul (NEGATIVE); UR NITRITE (Dip) NEGATIVE (NEGATIVE); UR RBC > 182 /HPF (0-5); UR SPECIFIC GRAVITY (Dip) 1.012 (1.003-1.030); UR TOTAL PROTEIN (Dip) 2+ mg/dl (NEGATIVE); UR UROBILINOGEN (Dip) NEGATIVE (NEGATIVE); UR WBC > 182 /HPF (0-5)
[2018-12-28] MEDS: ONDANSETRON 4 MG INJ IV (09:40)
[2018-12-28] MEDS: morphine 4 MG/ML VIAL IV (09:40)
[2018-12-28] MEDS ORDERED: ACETAMINOPHEN 325 MG TAB PO (10:00)
[2018-12-28] MEDS ORDERED: ONDANSETRON 4 MG INJ IV (10:00)
[2018-12-28] MEDS: morphine 2 MG INJ IV ×2 (13:26→18:31)
[2018-12-28] MEDS ORDERED: HYDROCORTISONE 0.5% 28.35 GM CR TOP (13:30)
[2018-12-28] MEDS: DIVALPROEX (ER) 250 MG TAB PO (21:42)
[2018-12-28] MEDS: TAMSULOSIN (SR) 0.4 MG CAP PO (21:42)
[2018-12-28] MEDS: OLANZAPINE 2.5 MG TAB PO (23:45)
[2018-12-29] MEDS: morphine 2 MG INJ IV ×2 (04:29→10:56)
[2018-12-29 05:23] LABS: ADD MAN DIFF? NO
[2018-12-29] MEDS: PANTOPRAZOLE (EC) 40 MG TAB PO (05:23)
[2018-12-29 05:32] LABS: EOSINOPHILS % 0.3 % (0.0-7.0); HEMATOCRIT 35.1 % (42.0-52.0); LYMPHOCYTES % 24.9 % (15.0-51.0); MEAN CORPUSCULAR HEMOGLOBIN 27.2 pg (29.0-33.0); MEAN CORPUSCULAR HGB CONC 31.3 g/dl (32.0-37.0); MEAN CORPUSCULAR VOLUME 86.9 fl (82.0-101.0); MEAN PLATELET VOLUME 10.7 fl (7.4-10.4); MONOCYTE # 0.6 10^3/ul (0.3-0.9); NEUTROPHIL # 2.2 10^3/ul (1.6-7.5); NEUTROPHILS % 58.3 % (39.0-77.0); PLATELET COUNT 124 10^3/UL (140-415); RED BLOOD COUNT 4.04 10^6/ul (4.70-6.10); RED CELL DISTRIBUTION WIDTH 16.9 % (11.5-14.5)
[2018-12-29 05:32] LABS: WHITE BLOOD COUNT 3.8 10^3/ul (4.8-10.8)
[2018-12-29 06:11] LABS: ANION GAP 9 (5-13); BLOOD UREA NITROGEN 13 mg/dl (7-20); CALCIUM 8.9 mg/dl (8.4-10.2); CARBON DIOXIDE 31 mmol/L (21-31); CHLORIDE 100 mmol/L (97-110); CREATININE 0.74 mg/dl (0.61-1.24); GLUCOSE 122 mg/dl (70-220); SODIUM 140 mmol/L (135-144)
[2018-12-29] MEDS ORDERED: RISPERIDONE 1 MG TAB PO (09:00)
[2018-12-29] MEDS: OLANZAPINE 2.5 MG TAB PO ×3 (09:21→20:17)
[2018-12-29] MEDS: DUTASTERIDE 0.5 MG CAP PO (09:21)
[2018-12-29] MEDS: ESCITALOPRAM 10 MG TAB PO (09:21)
[2018-12-29] MEDS: DIVALPROEX (ER) 250 MG TAB PO ×2 (09:21→20:14)
[2018-12-29] MEDS: CHOLECALCIFEROL 400 UNITS TAB PO (09:22)
[2018-12-29] MEDS: DONEPEZIL 10 MG TAB PO (09:22)
[2018-12-29] MEDS: MEMANTINE 10 MG TAB PO (09:22)
[2018-12-29] MEDS: BENAZEPRIL 40 MG TAB PO (09:23)
[2018-12-29] MEDS: FERROUS SULFATE (EC) 325 MG TAB PO (09:33)
[2018-12-29 20:02] LABS: CREATINE KINASE 23 IU/L (23-200)
[2018-12-29] MEDS: TAMSULOSIN (SR) 0.4 MG CAP PO (20:14)
[2018-12-29 20:16] LABS: CK INDEX 1.4; CK-MB 0.32 ng/ml (0.0-2.4); TROPONIN-I < 0.012 ng/ml (0.000-0.120)
[2018-12-30 01:01] LABS: CREATINE KINASE 25 IU/L (23-200)
[2018-12-30 01:13] LABS: CK-MB 0.26 ng/ml (0.0-2.4); TROPONIN-I < 0.012 ng/ml (0.000-0.120)
[2018-12-30 05:18] LABS: ADD MAN DIFF? NO
[2018-12-30 05:27] LABS: PLATELET COUNT 116 10^3/UL (140-415)
[2018-12-30 05:30] LABS: BASOPHILS % 0.3 % (0.0-2.0); EOSINOPHILS % 0.3 % (0.0-7.0); HEMATOCRIT 36.2 % (42.0-52.0); HEMOGLOBIN 11.3 g/dl (14.0-18.0); LYMPHOCYTES # 1.1 10^3/ul (0.8-2.9); LYMPHOCYTES % 28.5 % (15.0-51.0); MEAN CORPUSCULAR HEMOGLOBIN 26.8 pg (29.0-33.0); MEAN CORPUSCULAR HGB CONC 31.2 g/dl (32.0-37.0); MEAN PLATELET VOLUME 10.8 fl (7.4-10.4); MONOCYTE # 0.6 10^3/ul (0.3-0.9); MONOCYTES % 17.1 % (0.0-11.0); POSITIVE DIFF @See below; RED BLOOD COUNT 4.21 10^6/ul (4.70-6.10); RED CELL DISTRIBUTION WIDTH 16.9 % (11.5-14.5)
[2018-12-30 05:30] LABS: WHITE BLOOD COUNT 3.8 10^3/ul (4.8-10.8)
[2018-12-30] MEDS: PANTOPRAZOLE (EC) 40 MG TAB PO (05:35)
[2018-12-30 05:43] LABS: PROTIME 14.3 Sec (11.9-14.9); PT RATIO 1.1
[2018-12-30 05:44] LABS: PARTIAL THROMBOPLASTIN TIME 32.9 Sec (23.0-35.0); THROMBIN TIME 16.3 SEC (13.8-19.1)
[2018-12-30 06:02] LABS: ANION GAP 6 (5-13); BLOOD UREA NITROGEN 11 mg/dl (7-20); CALCIUM 9.2 mg/dl (8.4-10.2); CARBON DIOXIDE 32 mmol/L (21-31); CHLORIDE 103 mmol/L (97-110); CREATININE 0.72 mg/dl (0.61-1.24); GLUCOSE 100 mg/dl (70-220); POTASSIUM 4.3 mmol/L (3.5-5.1); SODIUM 141 mmol/L (135-144)
[2018-12-30 06:03] LABS: CK-MB 0.26 ng/ml (0.0-2.4); TROPONIN-I < 0.012 ng/ml (0.000-0.120)
[2018-12-30 06:19] LABS: PLATELET COUNT 115 10^3/UL (140-415)
[2018-12-30 06:30] LABS: CK INDEX 1.1; CREATINE KINASE 23 IU/L (23-200)
[2018-12-30] MEDS ORDERED: PHENYLephrine 10 MG INJ (07:00)
[2018-12-30] MEDS ORDERED: CEFAZOLIN 1 GM INJ (07:00)
[2018-12-30] MEDS ORDERED: SEVOFLURANE 15 MIN (07:00)
[2018-12-30 07:26] LABS: ANISOCYTOSIS 1+ (0-0); BAND NEUTROPHILS #M 0.1 10^3/ul (0.0-0.6); BAND NEUTROPHILS % (M) 3 % (0-4); LYMPHOCYTES #M 0.8 10^3/ul (0.8-2.9); LYMPHOCYTES % (M) 22 % (15-51); METAMYELOCYTES %M 1 % (0-0); MONOCYTE #M 0.6 10^3/ul (0.3-0.9); MONOCYTES % (M) 16 % (0-11); OVALOCYTES 1+ (0-0); PLATELET ESTIMATE DECREASED; POIKILOCYTOSIS 1+ (0-0); POLYCHROMASIA 1+ (0-0); SEG NEUT #M 2.2 10^3/ul (1.6-7.5); SEGMENTED NEUTROPHILS (M) % 58 % (39-77); SMUDGE%M 9 % (0-0)
[2018-12-30] MEDS: morphine 2 MG INJ IV ×2 (08:59→23:52)
[2018-12-30] MEDS: MEMANTINE 10 MG TAB PO (09:00)
[2018-12-30] MEDS: CHOLECALCIFEROL 400 UNITS TAB PO (09:00)
[2018-12-30] MEDS: DIVALPROEX (ER) 250 MG TAB PO ×2 (09:00→21:00)
[2018-12-30] MEDS: DONEPEZIL 10 MG TAB PO (09:00)
[2018-12-30] MEDS: OLANZAPINE 2.5 MG TAB PO ×3 (09:00→21:00)
[2018-12-30] MEDS: ESCITALOPRAM 10 MG TAB PO (09:00)
[2018-12-30] MEDS: BENAZEPRIL 40 MG TAB PO (09:00)
[2018-12-30] MEDS: DUTASTERIDE 0.5 MG CAP PO (09:00)
[2018-12-30] MEDS: FERROUS SULFATE (EC) 325 MG TAB PO (09:00)
[2018-12-30] MEDS: DEXTROSE 5%-0.45% NACL 1,000 ML IV (16:33)
[2018-12-30] MEDS ORDERED: FENTAnyl 50 MCG/ML VIAL (18:48)
[2018-12-30] MEDS ORDERED: INDIGOTINDISULFONATE 0.8% 5 ML INJ (19:09)
[2018-12-30] MEDS ORDERED: PROPOFOL 20 ML (20:00)
[2018-12-30] MEDS ORDERED: ONDANSETRON 4 MG INJ (20:00)
[2018-12-30] MEDS ORDERED: ROCURONIUM 50 MG INJ ×2 (20:00→21:31)
[2018-12-30] MEDS ORDERED: DEXAMETHASONE 4 MG/ML 5 ML INJ (20:01)
[2018-12-30] MEDS ORDERED: LABETALOL HCL 20MG INJ (20:01)
[2018-12-30] MEDS ORDERED: METOCLOPRAMIDE 10 MG INJ (20:01)
[2018-12-30] MEDS ORDERED: hydrALAzine 20 MG INJ IV (21:00)
[2018-12-30] MEDS ORDERED: LABETALOL HCL 20MG INJ IV (21:00)
[2018-12-30] MEDS ORDERED: FENTAnyl 50 MCG/ML VIAL IV ×3 (21:00)
[2018-12-30] MEDS ORDERED: METOCLOPRAMIDE 10 MG INJ IV (21:00)
[2018-12-30] MEDS ORDERED: EPHEDrine SULFATE 50 MG/5 ML SYG IV (21:00)
[2018-12-30] MEDS: TAMSULOSIN (SR) 0.4 MG CAP PO (21:00)
[2018-12-30] MEDS ORDERED: ONDANSETRON 4 MG INJ IV (21:00)
[2018-12-30] MEDS ORDERED: HYDROmorphONE 1 MG/5 ML IV SYRINGE IV ×3 (21:00)
[2018-12-30] MEDS ORDERED: DIPHENHYDRAMINE 50 MG INJ IV (21:00)
[2018-12-30] MEDS ORDERED: EPHEDrine 50 MG INJ (21:31)
[2018-12-30] MEDS ORDERED: NEOSTIGMINE 3 MG/3 ML SYRINGE (21:31)
[2018-12-30] MEDS ORDERED: GLYCOPYRROLATE 0.4 MG INJ (21:32)
[2018-12-30] MEDS ORDERED: SUGAMMADEX SODIUM 200 MG/2 ML VIAL IV (22:02)
[2018-12-30 22:35] LABS: ADD MAN DIFF? NO
[2018-12-30 22:40] LABS: BASOPHILS % 0.3 % (0.0-2.0); HEMATOCRIT 33.6 % (42.0-52.0); HEMOGLOBIN 10.5 g/dl (14.0-18.0); LYMPHOCYTES # 0.6 10^3/ul (0.8-2.9); LYMPHOCYTES % 16.4 % (15.0-51.0); MEAN CORPUSCULAR HEMOGLOBIN 27.6 pg (29.0-33.0); MEAN CORPUSCULAR HGB CONC 31.3 g/dl (32.0-37.0); MEAN CORPUSCULAR VOLUME 88.2 fl (82.0-101.0); MEAN PLATELET VOLUME 10.6 fl (7.4-10.4); MONOCYTE # 0.2 10^3/ul (0.3-0.9); MONOCYTES % 4.6 % (0.0-11.0); NEUTROPHIL # 2.8 10^3/ul (1.6-7.5); NEUTROPHILS % 77.1 % (39.0-77.0); PLATELET COUNT 104 10^3/UL (140-415); POSITIVE DIFF @See below; RED BLOOD COUNT 3.81 10^6/ul (4.70-6.10); RED CELL DISTRIBUTION WIDTH 16.8 % (11.5-14.5)
[2018-12-30 22:40] LABS: WHITE BLOOD COUNT 3.7 10^3/ul (4.8-10.8)
[2018-12-30] MEDS: MEPERIDINE 25 MG INJ IV (22:49)
[2018-12-30 22:53] LABS: ANION GAP 7 (5-13); BLOOD UREA NITROGEN 12 mg/dl (7-20); CALCIUM 8.6 mg/dl (8.4-10.2); CARBON DIOXIDE 31 mmol/L (21-31); CHLORIDE 101 mmol/L (97-110); CREATININE 0.74 mg/dl (0.61-1.24); GLUCOSE 168 mg/dl (70-220); POTASSIUM 4.3 mmol/L (3.5-5.1); SODIUM 139 mmol/L (135-144)
[2018-12-31] MEDS: DEXTROSE 5%-0.45% NACL 1,000 ML IV (02:53)
[2018-12-31] MEDS: PANTOPRAZOLE (EC) 40 MG TAB PO (04:42)
[2018-12-31] MEDS: morphine 2 MG INJ IV (04:42)
[2018-12-31] MEDS: FERROUS SULFATE (EC) 325 MG TAB PO (08:34)
[2018-12-31] MEDS: BENAZEPRIL 40 MG TAB PO (08:34)
[2018-12-31] MEDS: ESCITALOPRAM 10 MG TAB PO (08:35)
[2018-12-31] MEDS: CHOLECALCIFEROL 400 UNITS TAB PO (09:46)
[2018-12-31] MEDS: DONEPEZIL 10 MG TAB PO (09:46)
[2018-12-31] MEDS: DUTASTERIDE 0.5 MG CAP PO (09:46)
[2018-12-31] MEDS: traMADol 50 MG TAB PO ×2 (09:46→17:13)
[2018-12-31] MEDS: OLANZAPINE 2.5 MG TAB PO ×3 (09:46→20:19)
[2018-12-31] MEDS: MEMANTINE 10 MG TAB PO (09:46)
[2018-12-31] MEDS: DIVALPROEX (ER) 250 MG TAB PO ×2 (11:04→20:19)
[2018-12-31] MEDS: ACETAMINOPHEN 325 MG TAB PO (15:04)
[2018-12-31] MEDS: TAMSULOSIN (SR) 0.4 MG CAP PO (20:19)
[2019-01-01 05:18] LABS: ABNORMAL IP MESSAGE 1; ADD MAN DIFF? NO; BASOPHILS % 0.2 % (0.0-2.0); EOSINOPHILS % 0.2 % (0.0-7.0); HEMATOCRIT 26.5 % (42.0-52.0); HEMOGLOBIN 8.5 g/dl (14.0-18.0); LYMPHOCYTES # 0.6 10^3/ul (0.8-2.9); LYMPHOCYTES % 10.4 % (15.0-51.0); MEAN CORPUSCULAR HEMOGLOBIN 28.1 pg (29.0-33.0); MEAN CORPUSCULAR HGB CONC 32.1 g/dl (32.0-37.0); MEAN CORPUSCULAR VOLUME 87.5 fl (82.0-101.0); MEAN PLATELET VOLUME 11.2 fl (7.4-10.4); MONOCYTE # 0.9 10^3/ul (0.3-0.9); MONOCYTES % 14.2 % (0.0-11.0); NEUTROPHIL # 4.4 10^3/ul (1.6-7.5); PLATELET COUNT 97 10^3/UL (140-415); POSITIVE DIFF @See below; RED BLOOD COUNT 3.03 10^6/ul (4.70-6.10)
[2019-01-01 05:42] LABS: ANION GAP 7 (5-13); BLOOD UREA NITROGEN 13 mg/dl (7-20); CALCIUM 8.4 mg/dl (8.4-10.2); CARBON DIOXIDE 30 mmol/L (21-31); CHLORIDE 101 mmol/L (97-110); GLUCOSE 132 mg/dl (70-220); POTASSIUM 4.3 mmol/L (3.5-5.1); SODIUM 138 mmol/L (135-144)
[2019-01-01] MEDS: PANTOPRAZOLE (EC) 40 MG TAB PO (05:43)
[2019-01-01] MEDS: MEMANTINE 10 MG TAB PO (08:55)
[2019-01-01] MEDS: OLANZAPINE 2.5 MG TAB PO ×3 (08:55→21:04)
[2019-01-01] MEDS: DIVALPROEX (ER) 250 MG TAB PO ×2 (08:55→21:23)
[2019-01-01] MEDS: DONEPEZIL 10 MG TAB PO (08:55)
[2019-01-01] MEDS: DUTASTERIDE 0.5 MG CAP PO (08:55)
[2019-01-01] MEDS: ESCITALOPRAM 10 MG TAB PO (08:55)
[2019-01-01] MEDS: FERROUS SULFATE (EC) 325 MG TAB PO (08:55)
[2019-01-01] MEDS: CHOLECALCIFEROL 400 UNITS TAB PO (08:56)
[2019-01-01] MEDS: BENAZEPRIL 40 MG TAB PO (09:00)
[2019-01-01] MEDS: traMADol 50 MG TAB PO ×2 (09:04→15:55)
[2019-01-01] MEDS: morphine 2 MG INJ IV ×2 (10:29→21:24)
[2019-01-01] MEDS: TAMSULOSIN (SR) 0.4 MG CAP PO (21:05)
[2019-01-02] MEDS: morphine 2 MG INJ IV ×2 (02:31→10:25)
[2019-01-02 05:18] LABS: ADD MAN DIFF? NO
[2019-01-02 05:27] LABS: WHITE BLOOD COUNT 4.4 10^3/ul (4.8-10.8)
[2019-01-02 05:27] LABS: ABNORMAL IP MESSAGE 1; BASOPHILS % 0.5 % (0.0-2.0); EOSINOPHILS % 0.5 % (0.0-7.0); HEMOGLOBIN 8.5 g/dl (14.0-18.0); LYMPHOCYTES # 0.7 10^3/ul (0.8-2.9); LYMPHOCYTES % 16.2 % (15.0-51.0); MEAN CORPUSCULAR HEMOGLOBIN 27.3 pg (29.0-33.0); MEAN CORPUSCULAR HGB CONC 31.5 g/dl (32.0-37.0); MEAN CORPUSCULAR VOLUME 86.8 fl (82.0-101.0); MEAN PLATELET VOLUME 11.1 fl (7.4-10.4); MONOCYTE # 0.9 10^3/ul (0.3-0.9); MONOCYTES % 20.1 % (0.0-11.0); NEUTROPHIL # 2.5 10^3/ul (1.6-7.5); NEUTROPHILS % 57.9 % (39.0-77.0); NUCLEATED RED BLOOD CELLS% 0.5 /100WBC (0.0-0.0); PLATELET COUNT 99 10^3/UL (140-415); POSITIVE DIFF @See below; RED BLOOD COUNT 3.11 10^6/ul (4.70-6.10); RED CELL DISTRIBUTION WIDTH 17.1 % (11.5-14.5)
[2019-01-02] MEDS: PANTOPRAZOLE (EC) 40 MG TAB PO (06:03)
[2019-01-02] MEDS: traMADol 50 MG TAB PO ×2 (08:08→10:28)
[2019-01-02] MEDS: DUTASTERIDE 0.5 MG CAP PO (08:39)
[2019-01-02] MEDS: DIVALPROEX (ER) 250 MG TAB PO ×2 (08:39→21:12)
[2019-01-02] MEDS: CHOLECALCIFEROL 400 UNITS TAB PO (08:40)
[2019-01-02] MEDS: FERROUS SULFATE (EC) 325 MG TAB PO (08:40)
[2019-01-02] MEDS: MEMANTINE 10 MG TAB PO (08:40)
[2019-01-02] MEDS: ESCITALOPRAM 10 MG TAB PO (08:40)
[2019-01-02] MEDS: DONEPEZIL 10 MG TAB PO (08:40)
[2019-01-02] MEDS: OLANZAPINE 2.5 MG TAB PO ×3 (08:40→21:12)
[2019-01-02] MEDS: BENAZEPRIL 40 MG TAB PO (09:00)
[2019-01-02] MEDS: TAMSULOSIN (SR) 0.4 MG CAP PO (21:12)
[2019-01-03 05:15] LABS: ADD MAN DIFF? NO
[2019-01-03 05:26] LABS: WHITE BLOOD COUNT 4.1 10^3/ul (4.8-10.8)
[2019-01-03 05:26] LABS: ABNORMAL IP MESSAGE 1; BASOPHILS % 0.2 % (0.0-2.0); HEMATOCRIT 29.9 % (42.0-52.0); HEMOGLOBIN 9.5 g/dl (14.0-18.0); LYMPHOCYTES # 0.8 10^3/ul (0.8-2.9); LYMPHOCYTES % 20.5 % (15.0-51.0); MEAN CORPUSCULAR HEMOGLOBIN 27.2 pg (29.0-33.0); MEAN CORPUSCULAR HGB CONC 31.8 g/dl (32.0-37.0); MEAN CORPUSCULAR VOLUME 85.7 fl (82.0-101.0); MEAN PLATELET VOLUME 11.7 fl (7.4-10.4); MONOCYTES % 25.1 % (0.0-11.0); NEUTROPHILS % 48.8 % (39.0-77.0); NUCLEATED RED BLOOD CELLS% 0.5 /100WBC (0.0-0.0); PLATELET COUNT 92 10^3/UL (140-415); POSITIVE DIFF @See below; RED BLOOD COUNT 3.49 10^6/ul (4.70-6.10)
[2019-01-03] MEDS: PANTOPRAZOLE (EC) 40 MG TAB PO (06:13)
[2019-01-03] MEDS: DONEPEZIL 10 MG TAB PO (09:20)
[2019-01-03] MEDS: ESCITALOPRAM 10 MG TAB PO (09:20)
[2019-01-03] MEDS: traMADol 50 MG TAB PO (09:20)
[2019-01-03] MEDS: FERROUS SULFATE (EC) 325 MG TAB PO (09:20)
[2019-01-03] MEDS: CHOLECALCIFEROL 400 UNITS TAB PO (09:20)
[2019-01-03] MEDS: OLANZAPINE 2.5 MG TAB PO ×3 (09:21→20:57)
[2019-01-03] MEDS: DUTASTERIDE 0.5 MG CAP PO (09:21)
[2019-01-03] MEDS: MEMANTINE 10 MG TAB PO (09:21)
[2019-01-03] MEDS: DIVALPROEX (ER) 250 MG TAB PO ×2 (09:21→20:57)
[2019-01-03] MEDS: BENAZEPRIL 40 MG TAB PO (09:21)
[2019-01-03] MEDS: TAMSULOSIN (SR) 0.4 MG CAP PO (20:57)
[2019-01-03] MEDS: morphine 2 MG INJ IV (23:56)
[2019-01-04] MEDS: PANTOPRAZOLE (EC) 40 MG TAB PO (04:23)
[2019-01-04] MEDS: traMADol 50 MG TAB PO ×2 (04:23→10:41)
[2019-01-04 05:10] LABS: ADD MAN DIFF? NO
[2019-01-04 05:15] LABS: WHITE BLOOD COUNT 3.5 10^3/ul (4.8-10.8)
[2019-01-04 05:15] LABS: ABNORMAL IP MESSAGE 1; BASOPHILS % 0.3 % (0.0-2.0); EOSINOPHILS # 0.1 10^3/ul (0.0-0.5); HEMATOCRIT 27.4 % (42.0-52.0); HEMOGLOBIN 8.7 g/dl (14.0-18.0); LYMPHOCYTES # 0.8 10^3/ul (0.8-2.9); LYMPHOCYTES % 23.6 % (15.0-51.0); MEAN CORPUSCULAR HEMOGLOBIN 27.2 pg (29.0-33.0); MEAN CORPUSCULAR HGB CONC 31.8 g/dl (32.0-37.0); MEAN CORPUSCULAR VOLUME 85.6 fl (82.0-101.0); MEAN PLATELET VOLUME 10.2 fl (7.4-10.4); MONOCYTE # 0.9 10^3/ul (0.3-0.9); MONOCYTES % 26.8 % (0.0-11.0); NEUTROPHIL # 1.5 10^3/ul (1.6-7.5); NEUTROPHILS % 43.3 % (39.0-77.0); PLATELET COUNT 92 10^3/UL (140-415); POSITIVE DIFF @See below
[2019-01-04] MEDS: morphine 2 MG INJ IV ×3 (08:39→23:56)
[2019-01-04] MEDS: DIVALPROEX (ER) 250 MG TAB PO ×2 (08:41→20:06)
[2019-01-04] MEDS: DONEPEZIL 10 MG TAB PO (08:41)
[2019-01-04] MEDS: OLANZAPINE 2.5 MG TAB PO ×3 (08:41→20:06)
[2019-01-04] MEDS: CHOLECALCIFEROL 400 UNITS TAB PO (08:41)
[2019-01-04] MEDS: ESCITALOPRAM 10 MG TAB PO (08:41)
[2019-01-04] MEDS: FERROUS SULFATE (EC) 325 MG TAB PO (08:41)
[2019-01-04] MEDS: MEMANTINE 10 MG TAB PO (08:41)
[2019-01-04] MEDS: DUTASTERIDE 0.5 MG CAP PO (08:41)
[2019-01-04] MEDS: BENAZEPRIL 40 MG TAB PO (08:42)
[2019-01-04] MEDS: TAMSULOSIN (SR) 0.4 MG CAP PO (20:06)
[2019-01-05] MEDS: morphine 2 MG INJ IV ×2 (04:19→20:35)
[2019-01-05 05:48] LABS: WHITE BLOOD COUNT 2.9 10^3/ul (4.8-10.8)
[2019-01-05 05:48] LABS: ABNORMAL IP MESSAGE 1; HEMATOCRIT 26.5 % (42.0-52.0); HEMOGLOBIN 8.5 g/dl (14.0-18.0); MEAN CORPUSCULAR HEMOGLOBIN 27.3 pg (29.0-33.0); MEAN CORPUSCULAR HGB CONC 32.1 g/dl (32.0-37.0); MEAN CORPUSCULAR VOLUME 85.2 fl (82.0-101.0); MEAN PLATELET VOLUME 10.7 fl (7.4-10.4); PLATELET COUNT 97 10^3/UL (140-415); POSITIVE DIFF @See below; RED BLOOD COUNT 3.11 10^6/ul (4.70-6.10); RED CELL DISTRIBUTION WIDTH 17.1 % (11.5-14.5)
[2019-01-05 05:59] LABS: ADD MAN DIFF? YES
[2019-01-05 06:07] LABS: ANION GAP 10 (5-13); BLOOD UREA NITROGEN 13 mg/dl (7-20); CALCIUM 8.2 mg/dl (8.4-10.2); CARBON DIOXIDE 28 mmol/L (21-31); CHLORIDE 97 mmol/L (97-110); CREATININE 0.67 mg/dl (0.61-1.24); GLUCOSE 110 mg/dl (70-220); POTASSIUM 4.1 mmol/L (3.5-5.1); SODIUM 135 mmol/L (135-144)
[2019-01-05] MEDS: PANTOPRAZOLE (EC) 40 MG TAB PO (06:38)
[2019-01-05 07:15] LABS: ANISOCYTOSIS 1+ (0-0); BAND NEUTROPHILS % (M) 1 % (0-4); BASOPHILS % (M) 1 % (0-2); BURR CELLS 1+ (0-0); EOSINOPHILS % (M) 1 % (0-7); ERYTHROBLAST% (NRBC) (M) 2 % (0-0); LYMPHOCYTES #M 0.9 10^3/ul (0.8-2.9); LYMPHOCYTES % (M) 33 % (15-51); MICROCYTOSIS 1+ (0-0); MONOCYTE #M 0.4 10^3/ul (0.3-0.9); MONOCYTES % (M) 17 % (0-11); MYELOCYTES % (M) 1 % (0-0); PLATELET ESTIMATE DECREASED; POIKILOCYTOSIS 1+ (0-0); POLYCHROMASIA 3+ (0-0); SEG NEUT #M 1.3 10^3/ul (1.6-7.5); SEGMENTED NEUTROPHILS (M) % 46 % (39-77); SMUDGE%M 5 % (0-0)
[2019-01-05] MEDS: DIVALPROEX (ER) 250 MG TAB PO ×2 (08:32→20:48)
[2019-01-05] MEDS: CHOLECALCIFEROL 400 UNITS TAB PO (08:32)
[2019-01-05] MEDS: DUTASTERIDE 0.5 MG CAP PO (08:32)
[2019-01-05] MEDS: FERROUS SULFATE (EC) 325 MG TAB PO (08:32)
[2019-01-05] MEDS: MEMANTINE 10 MG TAB PO (08:32)
[2019-01-05] MEDS: DONEPEZIL 10 MG TAB PO (08:32)
[2019-01-05] MEDS: ESCITALOPRAM 10 MG TAB PO (08:33)
[2019-01-05] MEDS: BENAZEPRIL 40 MG TAB PO (08:34)
[2019-01-05] MEDS: OLANZAPINE 2.5 MG TAB PO ×3 (08:34→20:35)
[2019-01-05] MEDS: ACETAMINOPHEN 325 MG TAB PO (16:22)
[2019-01-05] MEDS: TAMSULOSIN (SR) 0.4 MG CAP PO (20:34)
[2019-01-06] MEDS: morphine 2 MG INJ IV (02:40)
[2019-01-06] MEDS: PANTOPRAZOLE (EC) 40 MG TAB PO (05:36)
[2019-01-06 06:08] LABS: HEMATOCRIT 27.7 % (42.0-52.0); HEMOGLOBIN 8.9 g/dl (14.0-18.0); MEAN CORPUSCULAR HEMOGLOBIN 27.4 pg (29.0-33.0); MEAN CORPUSCULAR HGB CONC 32.1 g/dl (32.0-37.0); MEAN CORPUSCULAR VOLUME 85.2 fl (82.0-101.0); MEAN PLATELET VOLUME 10.5 fl (7.4-10.4); NUCLEATED RED BLOOD CELLS% 0.6 /100WBC (0.0-0.0); PLATELET COUNT 113 10^3/UL (140-415); POSITIVE DIFF @See below; RED BLOOD COUNT 3.25 10^6/ul (4.70-6.10); RED CELL DISTRIBUTION WIDTH 17.1 % (11.5-14.5)
[2019-01-06 06:08] LABS: WHITE BLOOD COUNT 6.7 10^3/ul (4.8-10.8)
[2019-01-06 06:57] LABS: ADD MAN DIFF? YES
[2019-01-06] MEDS: DUTASTERIDE 0.5 MG CAP PO (08:29)
[2019-01-06] MEDS: BENAZEPRIL 40 MG TAB PO (08:30)
[2019-01-06] MEDS: DIVALPROEX (ER) 250 MG TAB PO ×2 (08:30→21:25)
[2019-01-06] MEDS: MEMANTINE 10 MG TAB PO (08:30)
[2019-01-06] MEDS: ESCITALOPRAM 10 MG TAB PO (08:31)
[2019-01-06] MEDS: DONEPEZIL 10 MG TAB PO (08:31)
[2019-01-06] MEDS: FERROUS SULFATE (EC) 325 MG TAB PO (08:31)
[2019-01-06] MEDS: OLANZAPINE 2.5 MG TAB PO ×3 (08:31→21:25)
[2019-01-06] MEDS: CHOLECALCIFEROL 400 UNITS TAB PO (08:31)
[2019-01-06 09:10] LABS: ANISOCYTOSIS 1+ (0-0); BAND NEUTROPHILS #M 0.7 10^3/ul (0.0-0.6); BAND NEUTROPHILS % (M) 11 % (0-4); ERYTHROBLAST% (NRBC) (M) 1 % (0-0); GIANT THROMBO% (M) 1 % (0-0); HYPOCHROMASIA 1+ (0-0); LYMPHOCYTES #M 1.8 10^3/ul (0.8-2.9); LYMPHOCYTES % (M) 27 % (15-51); MICROCYTOSIS 1+ (0-0); MONOCYTE #M 0.6 10^3/ul (0.3-0.9); MONOCYTES % (M) 9 % (0-11); MYELOCYTES #M 0.1 10^3/ul (0.0-0.0); MYELOCYTES % (M) 2 % (0-0); OVALOCYTES 1+ (0-0); PLATELET ESTIMATE DECREASED; POIKILOCYTOSIS 1+ (0-0); POLYCHROMASIA 2+ (0-0); REACTIVE LYMPHOCYTES #M 0.2 10^3/ul (0.0-0.0); REACTIVE LYMPHOCYTES% (M) 3 % (0-0); SEG NEUT #M 3.3 10^3/ul (1.6-7.5); SEGMENTED NEUTROPHILS (M) % 48 % (39-77); SMUDGE%M 3 % (0-0); SPHEROCYTES 1+ (0-0)
[2019-01-06] MEDS: TAMSULOSIN (SR) 0.4 MG CAP PO (21:25)
[2019-01-06] MEDS: traMADol 50 MG TAB PO (21:31)
[2019-01-07] MEDS: traMADol 50 MG TAB PO ×2 (03:44→22:08)
[2019-01-07 05:36] LABS: ABNORMAL IP MESSAGE 1; HEMATOCRIT 26.5 % (42.0-52.0); HEMOGLOBIN 8.3 g/dl (14.0-18.0); MEAN CORPUSCULAR HEMOGLOBIN 26.9 pg (29.0-33.0); MEAN CORPUSCULAR HGB CONC 31.3 g/dl (32.0-37.0); MEAN PLATELET VOLUME 10.5 fl (7.4-10.4); NUCLEATED RED BLOOD CELLS% 0.3 /100WBC (0.0-0.0); PLATELET COUNT 123 10^3/UL (140-415); POSITIVE DIFF @See below; RED BLOOD COUNT 3.08 10^6/ul (4.70-6.10); RED CELL DISTRIBUTION WIDTH 17.5 % (11.5-14.5)
[2019-01-07 05:36] LABS: WHITE BLOOD COUNT 11.3 10^3/ul (4.8-10.8)
[2019-01-07 05:57] LABS: ANION GAP 7 (5-13); BLOOD UREA NITROGEN 16 mg/dl (7-20); CALCIUM 8.6 mg/dl (8.4-10.2); CARBON DIOXIDE 28 mmol/L (21-31); CHLORIDE 101 mmol/L (97-110); CREATININE 0.84 mg/dl (0.61-1.24); GLUCOSE 115 mg/dl (70-220); POTASSIUM 4.3 mmol/L (3.5-5.1); SODIUM 136 mmol/L (135-144)
[2019-01-07 06:03] LABS: ADD MAN DIFF? YES
[2019-01-07] MEDS: PANTOPRAZOLE (EC) 40 MG TAB PO (06:58)
[2019-01-07] MEDS: DONEPEZIL 10 MG TAB PO (08:23)
[2019-01-07] MEDS: MEMANTINE 10 MG TAB PO (08:24)
[2019-01-07] MEDS: OLANZAPINE 2.5 MG TAB PO ×3 (08:24→21:35)
[2019-01-07] MEDS: DUTASTERIDE 0.5 MG CAP PO (08:24)
[2019-01-07] MEDS: CHOLECALCIFEROL 400 UNITS TAB PO (08:24)
[2019-01-07] MEDS: DIVALPROEX (ER) 250 MG TAB PO ×2 (08:24→21:36)
[2019-01-07] MEDS: ESCITALOPRAM 10 MG TAB PO (08:24)
[2019-01-07] MEDS: FERROUS SULFATE (EC) 325 MG TAB PO (08:24)
[2019-01-07 09:28] LABS: ANISOCYTOSIS 1+ (0-0); BAND NEUTROPHILS #M 1.1 10^3/ul (0.0-0.6); BAND NEUTROPHILS % (M) 10 % (0-4); ERYTHROBLAST% (NRBC) (M) 1 % (0-0); GIANT THROMBO% (M) 2 % (0-0); LYMPHOCYTES #M 2.9 10^3/ul (0.8-2.9); LYMPHOCYTES % (M) 26 % (15-51); MICROCYTOSIS 1+ (0-0); MONOCYTE #M 1.5 10^3/ul (0.3-0.9); MONOCYTES % (M) 14 % (0-11); PLATELET ESTIMATE DECREASED; POIKILOCYTOSIS 1+ (0-0); POLYCHROMASIA 1+ (0-0); REACTIVE LYMPHOCYTES #M 0.4 10^3/ul (0.0-0.0); REACTIVE LYMPHOCYTES% (M) 4 % (0-0); SEG NEUT #M 5.3 10^3/ul (1.6-7.5); SEGMENTED NEUTROPHILS (M) % 46 % (39-77); SMUDGE%M 4 % (0-0); SPHEROCYTES 1+ (0-0)
[2019-01-07] MEDS: BENAZEPRIL 40 MG TAB PO (09:37)
[2019-01-07] MEDS: SOD CHLORIDE 0.9% 250 ML IV (17:11)
[2019-01-07] MEDS: TAMSULOSIN (SR) 0.4 MG CAP PO (21:36)
[2019-01-08] MEDS: PANTOPRAZOLE (EC) 40 MG TAB PO (05:52)
[2019-01-08 06:00] LABS: WHITE BLOOD COUNT 8.1 10^3/ul (4.8-10.8)
[2019-01-08 06:00] LABS: HEMATOCRIT 26.3 % (42.0-52.0); HEMOGLOBIN 8.3 g/dl (14.0-18.0); MEAN CORPUSCULAR HEMOGLOBIN 27.3 pg (29.0-33.0); MEAN CORPUSCULAR HGB CONC 31.6 g/dl (32.0-37.0); MEAN CORPUSCULAR VOLUME 86.5 fl (82.0-101.0); MEAN PLATELET VOLUME 10.2 fl (7.4-10.4); NUCLEATED RED BLOOD CELLS% 0.4 /100WBC (0.0-0.0); PLATELET COUNT 134 10^3/UL (140-415); POSITIVE DIFF @See below; RED BLOOD COUNT 3.04 10^6/ul (4.70-6.10); RED CELL DISTRIBUTION WIDTH 17.3 % (11.5-14.5)
[2019-01-08 06:01] LABS: ADD MAN DIFF? YES
[2019-01-08 07:30] LABS: BURR CELLS 1+ (0-0); EOSINOPHILS % (M) 1 % (0-7); GIANT THROMBO% (M) 11 % (0-0); LYMPHOCYTES #M 2.4 10^3/ul (0.8-2.9); LYMPHOCYTES % (M) 30 % (15-51); MONOCYTE #M 0.8 10^3/ul (0.3-0.9); MONOCYTES % (M) 11 % (0-11); PLATELET ESTIMATE DECREASED; POIKILOCYTOSIS 1+ (0-0); POLYCHROMASIA 3+ (0-0); REACTIVE LYMPHOCYTES% (M) 1 % (0-0); SEGMENTED NEUTROPHILS (M) % 57 % (39-77); SMUDGE%M 18 % (0-0)
[2019-01-08] MEDS: BENAZEPRIL 40 MG TAB PO (09:00)
[2019-01-08] MEDS: SOD CHLORIDE 0.9% 1,000 ML IV (10:10)
[2019-01-08] MEDS: OLANZAPINE 2.5 MG TAB PO ×3 (10:13→20:47)
[2019-01-08] MEDS: MEMANTINE 10 MG TAB PO (10:13)
[2019-01-08] MEDS: ESCITALOPRAM 10 MG TAB PO (10:14)
[2019-01-08] MEDS: FERROUS SULFATE (EC) 325 MG TAB PO (10:14)
[2019-01-08] MEDS: DIVALPROEX (ER) 250 MG TAB PO ×2 (10:14→20:47)
[2019-01-08] MEDS: DONEPEZIL 10 MG TAB PO (10:14)
[2019-01-08] MEDS: CHOLECALCIFEROL 400 UNITS TAB PO (10:14)
[2019-01-08] MEDS: DUTASTERIDE 0.5 MG CAP PO (10:16)
[2019-01-08] MEDS: traMADol 50 MG TAB PO (17:15)
[2019-01-08] MEDS: ACETAMINOPHEN 325 MG TAB PO (20:47)
[2019-01-08] MEDS: DOCUSATE SODIUM 100 MG CAP PO (20:47)
[2019-01-08] MEDS: TAMSULOSIN (SR) 0.4 MG CAP PO (20:48)
[2019-01-09] MEDS: traMADol 50 MG TAB PO (01:52)
[2019-01-09] MEDS: PANTOPRAZOLE (EC) 40 MG TAB PO (05:26)
[2019-01-09 05:52] LABS: WHITE BLOOD COUNT 5.5 10^3/ul (4.8-10.8)
[2019-01-09 05:52] LABS: HEMATOCRIT 25.2 % (42.0-52.0); HEMOGLOBIN 7.8 g/dl (14.0-18.0); MEAN CORPUSCULAR HEMOGLOBIN 26.5 pg (29.0-33.0); MEAN CORPUSCULAR VOLUME 85.7 fl (82.0-101.0); MEAN PLATELET VOLUME 10.2 fl (7.4-10.4); NUCLEATED RED BLOOD CELLS% 0.4 /100WBC (0.0-0.0); PLATELET COUNT 135 10^3/UL (140-415); POSITIVE DIFF @See below; RED BLOOD COUNT 2.94 10^6/ul (4.70-6.10); RED CELL DISTRIBUTION WIDTH 17.2 % (11.5-14.5)
[2019-01-09 06:16] LABS: ADD MAN DIFF? YES
[2019-01-09] MEDS: BENAZEPRIL 10 MG TAB PO (09:00)
[2019-01-09] MEDS: MEMANTINE 10 MG TAB PO (09:13)
[2019-01-09] MEDS: FERROUS SULFATE (EC) 325 MG TAB PO (09:13)
[2019-01-09] MEDS: DIVALPROEX (ER) 250 MG TAB PO ×2 (09:13→21:31)
[2019-01-09] MEDS: ESCITALOPRAM 10 MG TAB PO (09:13)
[2019-01-09] MEDS: DONEPEZIL 10 MG TAB PO (09:13)
[2019-01-09] MEDS: OLANZAPINE 2.5 MG TAB PO ×3 (09:13→21:31)
[2019-01-09] MEDS: DUTASTERIDE 0.5 MG CAP PO (09:13)
[2019-01-09] MEDS: CHOLECALCIFEROL 400 UNITS TAB PO (09:13)
[2019-01-09 09:27] LABS: ANISOCYTOSIS 2+ (0-0); EOSINOPHILS % (M) 3 % (0-7); ERYTHROBLAST% (NRBC) (M) 1 % (0-0); LYMPHOCYTES #M 2.8 10^3/ul (0.8-2.9); LYMPHOCYTES % (M) 52 % (15-51); METAMYELOCYTES #M 0.1 10^3/ul (0.0-0.0); METAMYELOCYTES %M 2 % (0-0); MONOCYTE #M 0.3 10^3/ul (0.3-0.9); MONOCYTES % (M) 7 % (0-11); OVALOCYTES 1+ (0-0); PLATELET ESTIMATE DECREASED; POIKILOCYTOSIS 1+ (0-0); POLYCHROMASIA 1+ (0-0); SEGMENTED NEUTROPHILS (M) % 36 % (39-77); SMUDGE%M 2 % (0-0)
[2019-01-09] MEDS: TAMSULOSIN (SR) 0.4 MG CAP PO (21:30)
[2019-01-10 06:06] LABS: ADD MAN DIFF? NO
[2019-01-10 06:18] LABS: BASOPHILS % 0.3 % (0.0-2.0); EOSINOPHILS # 0.1 10^3/ul (0.0-0.5); EOSINOPHILS % 1.5 % (0.0-7.0); HEMATOCRIT 26.5 % (42.0-52.0); HEMOGLOBIN 8.2 g/dl (14.0-18.0); LYMPHOCYTES # 2.6 10^3/ul (0.8-2.9); LYMPHOCYTES % 42.2 % (15.0-51.0); MEAN CORPUSCULAR HGB CONC 30.9 g/dl (32.0-37.0); MEAN CORPUSCULAR VOLUME 87.2 fl (82.0-101.0); MEAN PLATELET VOLUME 9.9 fl (7.4-10.4); MONOCYTES % 16.5 % (0.0-11.0); NEUTROPHIL # 2.2 10^3/ul (1.6-7.5); NEUTROPHILS % 35.1 % (39.0-77.0); PLATELET COUNT 173 10^3/UL (140-415); RED BLOOD COUNT 3.04 10^6/ul (4.70-6.10); RED CELL DISTRIBUTION WIDTH 17.2 % (11.5-14.5)
[2019-01-10 06:18] LABS: WHITE BLOOD COUNT 6.1 10^3/ul (4.8-10.8)
[2019-01-10] MEDS: PANTOPRAZOLE (EC) 40 MG TAB PO (06:26)
[2019-01-10 06:48] LABS: ANION GAP 9 (5-13); BLOOD UREA NITROGEN 7 mg/dl (7-20); CALCIUM 8.5 mg/dl (8.4-10.2); CARBON DIOXIDE 30 mmol/L (21-31); CHLORIDE 102 mmol/L (97-110); CREATININE 0.68 mg/dl (0.61-1.24); GLUCOSE 99 mg/dl (70-220); POTASSIUM 4.2 mmol/L (3.5-5.1); SODIUM 141 mmol/L (135-144)
[2019-01-10] MEDS: ESCITALOPRAM 10 MG TAB PO (08:19)
[2019-01-10] MEDS: BENAZEPRIL 10 MG TAB PO (08:21)
[2019-01-10] MEDS: DIVALPROEX (ER) 250 MG TAB PO ×2 (08:21→20:44)
[2019-01-10] MEDS: DONEPEZIL 10 MG TAB PO (08:21)
[2019-01-10] MEDS: FERROUS SULFATE (EC) 325 MG TAB PO (08:21)
[2019-01-10] MEDS: MEMANTINE 10 MG TAB PO (08:22)
[2019-01-10] MEDS: DUTASTERIDE 0.5 MG CAP PO (08:22)
[2019-01-10] MEDS: CHOLECALCIFEROL 400 UNITS TAB PO (08:22)
[2019-01-10] MEDS: OLANZAPINE 2.5 MG TAB PO ×3 (08:22→20:44)
[2019-01-10] MEDS: traMADol 50 MG TAB PO (20:43)
[2019-01-10] MEDS: TAMSULOSIN (SR) 0.4 MG CAP PO (20:44)
[2019-01-11] MEDS: morphine 2 MG INJ IV (00:05)
[2019-01-11] MEDS: traMADol 50 MG TAB PO (02:29)
[2019-01-11] MEDS: PANTOPRAZOLE (EC) 40 MG TAB PO (05:32)
[2019-01-11] MEDS: ACETAMINOPHEN 325 MG TAB PO (05:33)
[2019-01-11 06:00] LABS: ABNORMAL IP MESSAGE 1; HEMATOCRIT 27.3 % (42.0-52.0); HEMOGLOBIN 8.4 g/dl (14.0-18.0); MEAN CORPUSCULAR HEMOGLOBIN 26.4 pg (29.0-33.0); MEAN CORPUSCULAR HGB CONC 30.8 g/dl (32.0-37.0); MEAN CORPUSCULAR VOLUME 85.8 fl (82.0-101.0); MEAN PLATELET VOLUME 9.9 fl (7.4-10.4); NUCLEATED RED BLOOD CELLS% 0.3 /100WBC (0.0-0.0); PLATELET COUNT 194 10^3/UL (140-415); POSITIVE DIFF @See below; RED BLOOD COUNT 3.18 10^6/ul (4.70-6.10); RED CELL DISTRIBUTION WIDTH 17.2 % (11.5-14.5)
[2019-01-11 06:00] LABS: WHITE BLOOD COUNT 6.8 10^3/ul (4.8-10.8)
[2019-01-11 06:20] LABS: ADD MAN DIFF? YES
[2019-01-11 06:21] LABS: ANION GAP 6 (5-13); BLOOD UREA NITROGEN 8 mg/dl (7-20); CALCIUM 8.6 mg/dl (8.4-10.2); CARBON DIOXIDE 28 mmol/L (21-31); CHLORIDE 106 mmol/L (97-110); CREATININE 0.72 mg/dl (0.61-1.24); GLUCOSE 117 mg/dl (70-220); POTASSIUM 4.1 mmol/L (3.5-5.1); SODIUM 140 mmol/L (135-144)
[2019-01-11 07:54] LABS: ANISOCYTOSIS 1+ (0-0); EOSINOPHILS % (M) 2 % (0-7); LYMPHOCYTES #M 2.1 10^3/ul (0.8-2.9); LYMPHOCYTES % (M) 32 % (15-51); MICROCYTOSIS 1+ (0-0); MONOCYTE #M 0.5 10^3/ul (0.3-0.9); MONOCYTES % (M) 8 % (0-11); MYELOCYTES #M 0.1 10^3/ul (0.0-0.0); MYELOCYTES % (M) 2 % (0-0); PLATELET ESTIMATE NORMAL; POLYCHROMASIA 3+ (0-0); REACTIVE LYMPHOCYTES #M 0.4 10^3/ul (0.0-0.0); REACTIVE LYMPHOCYTES% (M) 7 % (0-0); SEGMENTED NEUTROPHILS (M) % 49 % (39-77); SMUDGE%M 5 % (0-0)
[2019-01-11] MEDS: OLANZAPINE 2.5 MG TAB PO ×2 (09:01→13:49)
[2019-01-11] MEDS: CHOLECALCIFEROL 400 UNITS TAB PO (09:01)
[2019-01-11] MEDS: DIVALPROEX (ER) 250 MG TAB PO (09:01)
[2019-01-11] MEDS: MEMANTINE 10 MG TAB PO (09:02)
[2019-01-11] MEDS: DONEPEZIL 10 MG TAB PO (09:02)
[2019-01-11] MEDS: ESCITALOPRAM 10 MG TAB PO (09:04)
[2019-01-11] MEDS: BENAZEPRIL 10 MG TAB PO (09:04)
[2019-01-11] MEDS: FERROUS SULFATE (EC) 325 MG TAB PO (09:04)
[2019-01-11] MEDS: DUTASTERIDE 0.5 MG CAP PO (09:06)
== END 2019-01-11 17:05 | DRG 713 ==
LOC: MS1 01-01 05:00 → E/R 06:54 → MS1 12-30 23:30 → 2NE 09:56
PROC: 0VT08ZZ Resection of Prostate, Via Natural or Artificial Opening Endoscopic (ICD-10-PCS; principal; 2018-12-30 18:40)
PROC: 3E1K78Z Irrigation of Genitourinary Tract using Irrigating Substance, Via Natural or Artificial Opening (ICD-10-PCS; 2018-12-30 18:40)
DX: N40.1 Benign prostatic hyperplasia with lower urinary tract symptoms (principal); N13.8 Other obstructive and reflux uropathy; D62 Acute posthemorrhagic anemia; F03.91 Unspecified dementia, unspecified severity, with behavioral disturbance; D61.818 Other pancytopenia; R31.0 Gross hematuria; I95.9 Hypotension, unspecified; I10 Essential (primary) hypertension; F32.9 Major depressive disorder, single episode, unspecified; R33.8 Other retention of urine; I45.10 Unspecified right bundle-branch block
CPT/HCPCS: 36415; 71045; 80048; 81001; 82550; 82553; 82962; 84484; 85025; 85049; 85610; 85670; 85730; 86850; 86900; 86901; 86920; 87081; 87086; 88305; 93005; 96374; 96375; 97116; 97161; 97530; 99217; 99285-25

== ENCOUNTER 2019-02-10 11:43 | Inpatient (IN) | payer MEDICARE, OTHER ==
[2019-02-10 12:33] LABS: ADD MAN DIFF? NO
[2019-02-10 12:38] LABS: WHITE BLOOD COUNT 3.2 10^3/ul (4.8-10.8)
[2019-02-10 12:38] LABS: ABNORMAL IP MESSAGE 1; BASOPHILS % 0.3 % (0.0-2.0); EOSINOPHILS # 0.1 10^3/ul (0.0-0.5); HEMATOCRIT 31.6 % (42.0-52.0); HEMOGLOBIN 9.3 g/dl (14.0-18.0); LYMPHOCYTES % 60.7 % (15.0-51.0); MEAN CORPUSCULAR HEMOGLOBIN 23.5 pg (29.0-33.0); MEAN CORPUSCULAR HGB CONC 29.4 g/dl (32.0-37.0); MEAN CORPUSCULAR VOLUME 79.8 fl (82.0-101.0); MEAN PLATELET VOLUME 9.9 fl (7.4-10.4); MONOCYTE # 0.6 10^3/ul (0.3-0.9); MONOCYTES % 18.1 % (0.0-11.0); NEUTROPHIL # 0.5 10^3/ul (1.6-7.5); NEUTROPHILS % 16.6 % (39.0-77.0); PLATELET COUNT 122 10^3/UL (140-415); POSITIVE DIFF @See below; RED BLOOD COUNT 3.96 10^6/ul (4.70-6.10); RED CELL DISTRIBUTION WIDTH 17.1 % (11.5-14.5)
[2019-02-10] MEDS ORDERED: ONDANSETRON 4 MG INJ IV ×2 (13:00→17:30)
[2019-02-10] MEDS ORDERED: ACETAMINOPHEN 325 MG TAB PO ×2 (13:00→17:30)
[2019-02-10 13:06] LABS: ALANINE AMINOTRANSFERASE 20 IU/L (13-69); ALBUMIN 3.6 g/dl (3.3-4.9); ALBUMIN/GLOBULIN RATIO 0.92; ALKALINE PHOSPHATASE 49 IU/L (42-121); ANION GAP 7 (5-13); ASPARTATE AMINO TRANSFERASE 16 IU/L (15-46); BILIRUBIN,INDIRECT 0.3 mg/dl (0-1.1); BILIRUBIN,TOTAL 0.3 mg/dl (0.2-1.3); BLOOD UREA NITROGEN 11 mg/dl (7-20); CALCIUM 8.6 mg/dl (8.4-10.2); CARBON DIOXIDE 27 mmol/L (21-31); CHLORIDE 109 mmol/L (97-110); CREATININE 0.68 mg/dl (0.61-1.24); GLUCOSE 89 mg/dl (70-220); POTASSIUM 4.1 mmol/L (3.5-5.1); SODIUM 143 mmol/L (135-144); TOTAL PROTEIN 7.5 g/dl (6.1-8.1)
[2019-02-10 13:07] LABS: ACETAMINOPHEN < 10.0 ug/ml (10.0-30.0); ETHANOL < 10.0 mg/dl (0-0); SALICYLATE < 1.0 mg/dl (5.0-30.0)
[2019-02-10 13:22] LABS: ADD UMIC YES; UR ASCORBIC ACID NEGATIVE (NEGATIVE); UR BACTERIA FEW /HPF (NONE SEEN); UR BILIRUBIN (Dip) NEGATIVE (NEGATIVE); UR BLOOD (Dip) 1+ mg/dL (NEGATIVE); UR BUDDING YEAST MODERATE /HPF (NONE SEEN); UR CLARITY SLIGHTLY CLOUDY (CLEAR); UR COLOR YELLOW (YELLOW); UR GLUCOSE (Dip) NEGATIVE (NEGATIVE); UR KETONES (Dip) NEGATIVE (NEGATIVE); UR LEUKOCYTE ESTERASE (Dip) 2+ Leu/ul (NEGATIVE); UR MUCUS FEW /HPF (NONE SEEN); UR NITRITE (Dip) NEGATIVE (NEGATIVE); UR RBC 23 /HPF (0-5); UR SPECIFIC GRAVITY (Dip) 1.016 (1.003-1.030); UR TOTAL PROTEIN (Dip) 2+ mg/dl (NEGATIVE); UR UROBILINOGEN (Dip) 1+ mg/dL (NEGATIVE); UR WBC 61 /HPF (0-5)
[2019-02-10 13:42] LABS: AMPHETAMINE/METHAMPHETAMINE Negative (NEGATIVE); BARBITURATES Negative (NEGATIVE); BENZODIAZEPINES Negative (NEGATIVE); CANNABINOIDS Negative (NEGATIVE); COCAINE Negative (NEGATIVE); OPIATES Negative (NEGATIVE)
[2019-02-10] MEDS: CEFTRIAXONE 1 GM/50 ML (PMX) 50 ML IVPB (13:46)
[2019-02-10] MEDS ORDERED: BISACODYL (EC) 5 MG TAB PO (17:30)
[2019-02-10] MEDS: TAMSULOSIN (SR) 0.4 MG CAP PO (21:57)
[2019-02-10] MEDS: DIVALPROEX (ER) 250 MG TAB PO (21:57)
[2019-02-10] MEDS: OLANZAPINE 2.5 MG TAB PO (21:57)
[2019-02-10] MEDS: ATORVASTATIN 20 MG TAB PO (21:58)
[2019-02-10] MEDS: FAMOTIDINE 20 MG TAB PO (21:59)
[2019-02-11 07:09] LABS: ADD MAN DIFF? NO
[2019-02-11 07:15] LABS: WHITE BLOOD COUNT 2.7 10^3/ul (4.8-10.8)
[2019-02-11 07:15] LABS: ABNORMAL IP MESSAGE 1; BASOPHILS % 0.4 % (0.0-2.0); EOSINOPHILS # 0.1 10^3/ul (0.0-0.5); HEMATOCRIT 31.9 % (42.0-52.0); HEMOGLOBIN 9.3 g/dl (14.0-18.0); LYMPHOCYTES # 1.6 10^3/ul (0.8-2.9); LYMPHOCYTES % 57.7 % (15.0-51.0); MEAN CORPUSCULAR HGB CONC 29.2 g/dl (32.0-37.0); MONOCYTE # 0.6 10^3/ul (0.3-0.9); MONOCYTES % 20.2 % (0.0-11.0); NEUTROPHIL # 0.5 10^3/ul (1.6-7.5); NEUTROPHILS % 17.3 % (39.0-77.0); PLATELET COUNT 132 10^3/UL (140-415); POSITIVE DIFF @See below; RED BLOOD COUNT 4.04 10^6/ul (4.70-6.10); RED CELL DISTRIBUTION WIDTH 17.2 % (11.5-14.5)
[2019-02-11 07:31] LABS: ANION GAP 5 (5-13); BLOOD UREA NITROGEN 13 mg/dl (7-20); CALCIUM 8.5 mg/dl (8.4-10.2); CARBON DIOXIDE 29 mmol/L (21-31); CHLORIDE 108 mmol/L (97-110); CREATININE 0.68 mg/dl (0.61-1.24); GLUCOSE 84 mg/dl (70-220); POTASSIUM 4.1 mmol/L (3.5-5.1); SODIUM 142 mmol/L (135-144)
[2019-02-11] MEDS: BENAZEPRIL 40 MG TAB PO (08:31)
[2019-02-11] MEDS: ESCITALOPRAM 10 MG TAB PO (08:31)
[2019-02-11] MEDS: FERROUS SULFATE (EC) 325 MG TAB PO (08:31)
[2019-02-11] MEDS: FAMOTIDINE 20 MG TAB PO ×2 (08:31→21:17)
[2019-02-11] MEDS: OLANZAPINE 2.5 MG TAB PO ×3 (08:31→21:17)
[2019-02-11] MEDS: DUTASTERIDE 0.5 MG CAP PO (09:37)
[2019-02-11] MEDS: DIVALPROEX (ER) 250 MG TAB PO ×2 (09:37→21:16)
[2019-02-11] MEDS: DONEPEZIL 10 MG TAB PO (09:37)
[2019-02-11] MEDS: MEMANTINE 10 MG TAB PO (09:37)
[2019-02-11] MEDS: CEFTRIAXONE 1 GM/50 ML (PMX) 50 ML IVPB (12:12)
[2019-02-11] MEDS: TAMSULOSIN (SR) 0.4 MG CAP PO (21:17)
[2019-02-11] MEDS: ATORVASTATIN 20 MG TAB PO (21:17)
[2019-02-12] MEDS: DUTASTERIDE 0.5 MG CAP PO (09:05)
[2019-02-12] MEDS: FAMOTIDINE 20 MG TAB PO ×2 (09:05→21:04)
[2019-02-12] MEDS: FERROUS SULFATE (EC) 325 MG TAB PO (09:05)
[2019-02-12] MEDS: DIVALPROEX (ER) 250 MG TAB PO ×2 (09:05→21:04)
[2019-02-12] MEDS: ESCITALOPRAM 10 MG TAB PO (09:05)
[2019-02-12] MEDS: DONEPEZIL 10 MG TAB PO (09:06)
[2019-02-12] MEDS: OLANZAPINE 2.5 MG TAB PO ×3 (09:06→21:04)
[2019-02-12] MEDS: MEMANTINE 10 MG TAB PO (09:06)
[2019-02-12] MEDS: BENAZEPRIL 40 MG TAB PO (09:07)
[2019-02-12] MEDS: AMOXICILLIN 500 MG CAP PO ×2 (13:29→21:04)
[2019-02-12] MEDS: TAMSULOSIN (SR) 0.4 MG CAP PO (21:04)
[2019-02-12] MEDS: ATORVASTATIN 20 MG TAB PO (21:04)
[2019-02-13] MEDS: AMOXICILLIN 500 MG CAP PO ×3 (06:26→21:00)
[2019-02-13] MEDS: ESCITALOPRAM 10 MG TAB PO (08:08)
[2019-02-13] MEDS: BENAZEPRIL 40 MG TAB PO (08:08)
[2019-02-13] MEDS: DUTASTERIDE 0.5 MG CAP PO (08:08)
[2019-02-13] MEDS: DIVALPROEX (ER) 250 MG TAB PO ×2 (08:08→20:59)
[2019-02-13] MEDS: OLANZAPINE 2.5 MG TAB PO ×3 (08:08→20:59)
[2019-02-13] MEDS: FAMOTIDINE 20 MG TAB PO ×2 (08:08→20:58)
[2019-02-13] MEDS: MEMANTINE 10 MG TAB PO (08:08)
[2019-02-13] MEDS: FERROUS SULFATE (EC) 325 MG TAB PO (08:09)
[2019-02-13] MEDS: DONEPEZIL 10 MG TAB PO (08:09)
[2019-02-13] MEDS: ATORVASTATIN 20 MG TAB PO (20:59)
[2019-02-13] MEDS: TAMSULOSIN (SR) 0.4 MG CAP PO (20:59)
[2019-02-14] MEDS: OXYCODONE/ACETAMINOPHEN (5/325) TAB PO (02:49)
[2019-02-14] MEDS: AMOXICILLIN 500 MG CAP PO ×3 (05:33→21:50)
[2019-02-14 07:41] LABS: ADD MAN DIFF? NO
[2019-02-14 07:51] LABS: ABNORMAL IP MESSAGE 1; BASOPHILS % 0.3 % (0.0-2.0); EOSINOPHILS # 0.1 10^3/ul (0.0-0.5); EOSINOPHILS % 2.3 % (0.0-7.0); HEMATOCRIT 32.5 % (42.0-52.0); HEMOGLOBIN 9.8 g/dl (14.0-18.0); LYMPHOCYTES # 1.9 10^3/ul (0.8-2.9); LYMPHOCYTES % 61.5 % (15.0-51.0); MEAN CORPUSCULAR HEMOGLOBIN 23.4 pg (29.0-33.0); MEAN CORPUSCULAR HGB CONC 30.2 g/dl (32.0-37.0); MEAN CORPUSCULAR VOLUME 77.8 fl (82.0-101.0); MEAN PLATELET VOLUME 10.9 fl (7.4-10.4); MONOCYTE # 0.5 10^3/ul (0.3-0.9); MONOCYTES % 16.4 % (0.0-11.0); NEUTROPHIL # 0.6 10^3/ul (1.6-7.5); NEUTROPHILS % 19.2 % (39.0-77.0); PLATELET COUNT 137 10^3/UL (140-415); POSITIVE DIFF @See below; RED BLOOD COUNT 4.18 10^6/ul (4.70-6.10); RED CELL DISTRIBUTION WIDTH 17.5 % (11.5-14.5)
[2019-02-14 08:08] LABS: ANION GAP 8 (5-13); BLOOD UREA NITROGEN 15 mg/dl (7-20); CALCIUM 8.7 mg/dl (8.4-10.2); CARBON DIOXIDE 27 mmol/L (21-31); CHLORIDE 108 mmol/L (97-110); CREATININE 0.68 mg/dl (0.61-1.24); GLUCOSE 104 mg/dl (70-220); POTASSIUM 3.9 mmol/L (3.5-5.1); SODIUM 143 mmol/L (135-144)
[2019-02-14] MEDS: DUTASTERIDE 0.5 MG CAP PO (08:29)
[2019-02-14] MEDS: OLANZAPINE 2.5 MG TAB PO ×3 (08:30→21:51)
[2019-02-14] MEDS: MEMANTINE 10 MG TAB PO (08:30)
[2019-02-14] MEDS: FERROUS SULFATE (EC) 325 MG TAB PO (08:30)
[2019-02-14] MEDS: BENAZEPRIL 40 MG TAB PO (08:30)
[2019-02-14] MEDS: FAMOTIDINE 20 MG TAB PO ×2 (08:31→21:51)
[2019-02-14] MEDS: ESCITALOPRAM 10 MG TAB PO (08:31)
[2019-02-14] MEDS: DIVALPROEX (ER) 250 MG TAB PO ×2 (08:31→21:50)
[2019-02-14] MEDS: DONEPEZIL 10 MG TAB PO (08:31)
[2019-02-14] MEDS: ATORVASTATIN 20 MG TAB PO (21:50)
[2019-02-14] MEDS: TAMSULOSIN (SR) 0.4 MG CAP PO (21:51)
[2019-02-15] MEDS: AMOXICILLIN 500 MG CAP PO ×3 (06:21→22:00)
[2019-02-15] MEDS: MEMANTINE 10 MG TAB PO (08:58)
[2019-02-15] MEDS: DUTASTERIDE 0.5 MG CAP PO (08:58)
[2019-02-15] MEDS: FERROUS SULFATE (EC) 325 MG TAB PO (08:59)
[2019-02-15] MEDS: DIVALPROEX (ER) 250 MG TAB PO ×2 (08:59→22:00)
[2019-02-15] MEDS: OLANZAPINE 2.5 MG TAB PO ×3 (08:59→22:00)
[2019-02-15] MEDS: BENAZEPRIL 40 MG TAB PO (08:59)
[2019-02-15] MEDS: FAMOTIDINE 20 MG TAB PO ×2 (08:59→22:00)
[2019-02-15] MEDS: ESCITALOPRAM 10 MG TAB PO (08:59)
[2019-02-15] MEDS: DONEPEZIL 10 MG TAB PO (09:07)
[2019-02-15] MEDS: TAMSULOSIN (SR) 0.4 MG CAP PO (22:00)
[2019-02-15] MEDS: ATORVASTATIN 20 MG TAB PO (22:00)
[2019-02-16] MEDS: AMOXICILLIN 500 MG CAP PO ×3 (06:37→20:31)
[2019-02-16] MEDS: ESCITALOPRAM 10 MG TAB PO (09:38)
[2019-02-16] MEDS: MEMANTINE 10 MG TAB PO (09:38)
[2019-02-16] MEDS: FERROUS SULFATE (EC) 325 MG TAB PO (09:38)
[2019-02-16] MEDS: OLANZAPINE 2.5 MG TAB PO ×3 (09:38→20:30)
[2019-02-16] MEDS: DUTASTERIDE 0.5 MG CAP PO (09:38)
[2019-02-16] MEDS: DIVALPROEX (ER) 250 MG TAB PO ×2 (09:38→20:30)
[2019-02-16] MEDS: BENAZEPRIL 40 MG TAB PO (09:39)
[2019-02-16] MEDS: DONEPEZIL 10 MG TAB PO (09:39)
[2019-02-16] MEDS: FAMOTIDINE 20 MG TAB PO ×2 (09:39→20:29)
[2019-02-16] MEDS: ATORVASTATIN 20 MG TAB PO (20:29)
[2019-02-16] MEDS: TAMSULOSIN (SR) 0.4 MG CAP PO (20:30)
[2019-02-17] MEDS: AMOXICILLIN 500 MG CAP PO (05:42)
[2019-02-17 06:57] LABS: ADD MAN DIFF? NO
[2019-02-17 07:02] LABS: WHITE BLOOD COUNT 2.9 10^3/ul (4.8-10.8)
[2019-02-17 07:02] LABS: ABNORMAL IP MESSAGE 1; BASOPHILS % 0.4 % (0.0-2.0); EOSINOPHILS # 0.1 10^3/ul (0.0-0.5); EOSINOPHILS % 1.8 % (0.0-7.0); HEMATOCRIT 34.5 % (42.0-52.0); HEMOGLOBIN 10.3 g/dl (14.0-18.0); LYMPHOCYTES # 1.8 10^3/ul (0.8-2.9); LYMPHOCYTES % 63.9 % (15.0-51.0); MEAN CORPUSCULAR HEMOGLOBIN 23.6 pg (29.0-33.0); MEAN CORPUSCULAR HGB CONC 29.9 g/dl (32.0-37.0); MEAN CORPUSCULAR VOLUME 78.9 fl (82.0-101.0); MEAN PLATELET VOLUME 10.1 fl (7.4-10.4); MONOCYTE # 0.5 10^3/ul (0.3-0.9); MONOCYTES % 17.9 % (0.0-11.0); NEUTROPHIL # 0.4 10^3/ul (1.6-7.5); NEUTROPHILS % 15.3 % (39.0-77.0); PLATELET COUNT 129 10^3/UL (140-415); POSITIVE DIFF @See below; RED BLOOD COUNT 4.37 10^6/ul (4.70-6.10); RED CELL DISTRIBUTION WIDTH 18.1 % (11.5-14.5)
[2019-02-17 07:26] LABS: ANION GAP 7 (5-13); BLOOD UREA NITROGEN 14 mg/dl (7-20); CALCIUM 8.7 mg/dl (8.4-10.2); CARBON DIOXIDE 27 mmol/L (21-31); CHLORIDE 109 mmol/L (97-110); CREATININE 0.73 mg/dl (0.61-1.24); GLUCOSE 102 mg/dl (70-220); POTASSIUM 4.1 mmol/L (3.5-5.1); SODIUM 143 mmol/L (135-144)
[2019-02-17] MEDS: FAMOTIDINE 20 MG TAB PO ×2 (08:53→20:20)
[2019-02-17] MEDS: DUTASTERIDE 0.5 MG CAP PO (08:53)
[2019-02-17] MEDS: MEMANTINE 10 MG TAB PO (08:53)
[2019-02-17] MEDS: OLANZAPINE 2.5 MG TAB PO ×3 (08:53→20:19)
[2019-02-17] MEDS: DIVALPROEX (ER) 250 MG TAB PO ×2 (08:54→20:19)
[2019-02-17] MEDS: ESCITALOPRAM 10 MG TAB PO (08:54)
[2019-02-17] MEDS: FERROUS SULFATE (EC) 325 MG TAB PO (08:54)
[2019-02-17] MEDS: BENAZEPRIL 40 MG TAB PO (08:54)
[2019-02-17] MEDS: DONEPEZIL 10 MG TAB PO (08:55)
[2019-02-17 12:52] LABS: IRON 25 ug/dl (35-150)
[2019-02-17 13:01] LABS: % IRON SATURATION 7 % SAT (22-52); TOTAL IRON BINDING CAPACITY 365 ug/dl (241-421)
[2019-02-17 13:28] LABS: FERRITIN 16.8 ng/ml (11.1-264.0)
[2019-02-17 18:21] LABS: INR 1.21; PROTIME 15.4 Sec (11.9-14.9); PT RATIO 1.2
[2019-02-17 18:22] LABS: PARTIAL THROMBOPLASTIN TIME 34.1 Sec (23.0-35.0)
[2019-02-17] MEDS: DOCUSATE SODIUM 100 MG CAP PO (20:19)
[2019-02-17] MEDS: TAMSULOSIN (SR) 0.4 MG CAP PO (20:19)
[2019-02-17] MEDS: ATORVASTATIN 20 MG TAB PO (20:20)
[2019-02-18 02:38] LABS: PROTEIN, TOTAL 7.3 g/dL (6.1-8.1)
[2019-02-18] MEDS: OLANZAPINE 2.5 MG TAB PO ×3 (09:05→21:31)
[2019-02-18] MEDS: DONEPEZIL 10 MG TAB PO (09:06)
[2019-02-18] MEDS: BENAZEPRIL 40 MG TAB PO (09:06)
[2019-02-18] MEDS: ESCITALOPRAM 10 MG TAB PO (09:07)
[2019-02-18] MEDS: FERROUS SULFATE (EC) 325 MG TAB PO (09:07)
[2019-02-18] MEDS: DUTASTERIDE 0.5 MG CAP PO (09:07)
[2019-02-18] MEDS: DIVALPROEX (ER) 250 MG TAB PO ×2 (09:08→21:31)
[2019-02-18] MEDS: FAMOTIDINE 20 MG TAB PO ×2 (09:08→21:31)
[2019-02-18] MEDS: MEMANTINE 10 MG TAB PO (09:08)
[2019-02-18 09:28] LABS: ADD MAN DIFF? NO
[2019-02-18 09:33] LABS: WHITE BLOOD COUNT 2.8 10^3/ul (4.8-10.8)
[2019-02-18 09:33] LABS: ABNORMAL IP MESSAGE 1; BASOPHILS % 0.4 % (0.0-2.0); EOSINOPHILS # 0.1 10^3/ul (0.0-0.5); EOSINOPHILS % 2.2 % (0.0-7.0); HEMATOCRIT 34.9 % (42.0-52.0); HEMOGLOBIN 10.1 g/dl (14.0-18.0); LYMPHOCYTES # 1.7 10^3/ul (0.8-2.9); LYMPHOCYTES % 63.3 % (15.0-51.0); MEAN CORPUSCULAR HEMOGLOBIN 23.1 pg (29.0-33.0); MEAN CORPUSCULAR HGB CONC 28.9 g/dl (32.0-37.0); MEAN CORPUSCULAR VOLUME 79.9 fl (82.0-101.0); MEAN PLATELET VOLUME 10.5 fl (7.4-10.4); MONOCYTE # 0.5 10^3/ul (0.3-0.9); MONOCYTES % 19.3 % (0.0-11.0); NEUTROPHIL # 0.4 10^3/ul (1.6-7.5); NEUTROPHILS % 14.4 % (39.0-77.0); PLATELET COUNT 132 10^3/UL (140-415); POSITIVE DIFF @See below; RED BLOOD COUNT 4.37 10^6/ul (4.70-6.10); RED CELL DISTRIBUTION WIDTH 18.7 % (11.5-14.5)
[2019-02-18] MEDS: TAMSULOSIN (SR) 0.4 MG CAP PO (21:31)
[2019-02-18] MEDS: ATORVASTATIN 20 MG TAB PO (21:31)
[2019-02-19 00:02] LABS: ALBUMIN 3.6 g/dL (3.8-4.8); ALPHA-1-GLOBULINS 0.3 g/dL (0.2-0.3); ALPHA-2-GLOBULINS 0.7 g/dL (0.5-0.9); BETA 2 GLOBULINS 0.5 g/dL (0.2-0.5); BETA GLOBULINS 0.6 g/dL (0.4-0.6); GAMMA GLOBULINS 1.6 g/dL (0.8-1.7)
[2019-02-19 06:09] LABS: ADD MAN DIFF? NO
[2019-02-19 06:16] LABS: ABNORMAL IP MESSAGE 1; BASOPHILS % 0.3 % (0.0-2.0); EOSINOPHILS % 1.3 % (0.0-7.0); HEMATOCRIT 34.9 % (42.0-52.0); HEMOGLOBIN 10.1 g/dl (14.0-18.0); MEAN CORPUSCULAR HEMOGLOBIN 23.4 pg (29.0-33.0); MEAN CORPUSCULAR HGB CONC 28.9 g/dl (32.0-37.0); MEAN CORPUSCULAR VOLUME 80.8 fl (82.0-101.0); MEAN PLATELET VOLUME 10.1 fl (7.4-10.4); MONOCYTE # 0.5 10^3/ul (0.3-0.9); NEUTROPHIL # 0.5 10^3/ul (1.6-7.5); NEUTROPHILS % 15.1 % (39.0-77.0); PLATELET COUNT 119 10^3/UL (140-415); POSITIVE DIFF @See below; RED BLOOD COUNT 4.32 10^6/ul (4.70-6.10)
[2019-02-19 06:54] LABS: ANION GAP 4 (5-13); BLOOD UREA NITROGEN 14 mg/dl (7-20); CALCIUM 8.6 mg/dl (8.4-10.2); CARBON DIOXIDE 31 mmol/L (21-31); CHLORIDE 109 mmol/L (97-110); CREATININE 0.82 mg/dl (0.61-1.24); GLUCOSE 93 mg/dl (70-220); POTASSIUM 4.3 mmol/L (3.5-5.1); SODIUM 144 mmol/L (135-144)
[2019-02-19] MEDS: FERROUS SULFATE (EC) 325 MG TAB PO (08:36)
[2019-02-19] MEDS: ESCITALOPRAM 10 MG TAB PO (08:36)
[2019-02-19] MEDS: DIVALPROEX (ER) 250 MG TAB PO ×2 (08:36→21:27)
[2019-02-19] MEDS: MEMANTINE 10 MG TAB PO (08:36)
[2019-02-19] MEDS: DUTASTERIDE 0.5 MG CAP PO (08:36)
[2019-02-19] MEDS: OLANZAPINE 2.5 MG TAB PO ×3 (08:37→21:33)
[2019-02-19] MEDS: DONEPEZIL 10 MG TAB PO (08:37)
[2019-02-19] MEDS: BENAZEPRIL 40 MG TAB PO (08:37)
[2019-02-19] MEDS: FAMOTIDINE 20 MG TAB PO ×2 (08:37→21:27)
[2019-02-19] MEDS: SOD FERRIC GLUC COMPLX 125 MG in SOD CHLORIDE 0.9% 100 ML IVPB (14:15)
[2019-02-19] MEDS: TAMSULOSIN (SR) 0.4 MG CAP PO (21:27)
[2019-02-19] MEDS: ATORVASTATIN 20 MG TAB PO (21:27)
[2019-02-20] MEDS: FERROUS SULFATE (EC) 325 MG TAB PO (09:09)
[2019-02-20] MEDS: ESCITALOPRAM 10 MG TAB PO (09:10)
[2019-02-20] MEDS: DIVALPROEX (ER) 250 MG TAB PO ×2 (09:10→20:37)
[2019-02-20] MEDS: OLANZAPINE 2.5 MG TAB PO ×3 (09:11→20:38)
[2019-02-20] MEDS: MEMANTINE 10 MG TAB PO (09:11)
[2019-02-20] MEDS: DONEPEZIL 10 MG TAB PO (09:11)
[2019-02-20] MEDS: DUTASTERIDE 0.5 MG CAP PO (09:11)
[2019-02-20] MEDS: BENAZEPRIL 40 MG TAB PO (09:11)
[2019-02-20] MEDS: FAMOTIDINE 20 MG TAB PO ×2 (09:11→20:38)
[2019-02-20] MEDS: SOD FERRIC GLUC COMPLX 125 MG in SOD CHLORIDE 0.9% 100 ML IVPB (15:34)
[2019-02-20] MEDS: ATORVASTATIN 20 MG TAB PO (20:38)
[2019-02-20] MEDS: TAMSULOSIN (SR) 0.4 MG CAP PO (20:38)
[2019-02-21] MEDS: ESCITALOPRAM 10 MG TAB PO (09:04)
[2019-02-21] MEDS: FAMOTIDINE 20 MG TAB PO ×2 (09:04→20:32)
[2019-02-21] MEDS: DONEPEZIL 10 MG TAB PO (09:04)
[2019-02-21] MEDS: OLANZAPINE 2.5 MG TAB PO ×3 (09:04→20:20)
[2019-02-21] MEDS: DIVALPROEX (ER) 250 MG TAB PO ×2 (09:05→20:20)
[2019-02-21] MEDS: DUTASTERIDE 0.5 MG CAP PO (09:05)
[2019-02-21] MEDS: MEMANTINE 10 MG TAB PO (09:05)
[2019-02-21] MEDS: FERROUS SULFATE (EC) 325 MG TAB PO (09:05)
[2019-02-21] MEDS: BENAZEPRIL 40 MG TAB PO (09:05)
[2019-02-21] MEDS: SOD FERRIC GLUC COMPLX 125 MG in SOD CHLORIDE 0.9% 100 ML IVPB (13:09)
[2019-02-21] MEDS: ATORVASTATIN 20 MG TAB PO (20:32)
[2019-02-21] MEDS: TAMSULOSIN (SR) 0.4 MG CAP PO (20:33)
[2019-02-22] MEDS: DIVALPROEX (ER) 250 MG TAB PO ×2 (08:46→21:29)
[2019-02-22] MEDS: FAMOTIDINE 20 MG TAB PO ×2 (08:46→21:29)
[2019-02-22] MEDS: DUTASTERIDE 0.5 MG CAP PO (08:46)
[2019-02-22] MEDS: FERROUS SULFATE (EC) 325 MG TAB PO (08:46)
[2019-02-22] MEDS: OLANZAPINE 2.5 MG TAB PO ×3 (08:46→21:29)
[2019-02-22] MEDS: MEMANTINE 10 MG TAB PO (08:46)
[2019-02-22] MEDS: ESCITALOPRAM 10 MG TAB PO (08:47)
[2019-02-22] MEDS: DONEPEZIL 10 MG TAB PO (08:47)
[2019-02-22] MEDS: BENAZEPRIL 40 MG TAB PO (08:49)
[2019-02-22] MEDS: SOD FERRIC GLUC COMPLX 125 MG in SOD CHLORIDE 0.9% 100 ML IVPB (12:52)
[2019-02-22] MEDS: ATORVASTATIN 20 MG TAB PO (21:29)
[2019-02-22] MEDS: TAMSULOSIN (SR) 0.4 MG CAP PO (21:29)
[2019-02-23 06:52] LABS: ADD MAN DIFF? NO
[2019-02-23 06:57] LABS: WHITE BLOOD COUNT 2.9 10^3/ul (4.8-10.8)
[2019-02-23 06:57] LABS: ABNORMAL IP MESSAGE 1; BASOPHILS % 0.4 % (0.0-2.0); EOSINOPHILS % 1.4 % (0.0-7.0); HEMATOCRIT 35.3 % (42.0-52.0); HEMOGLOBIN 10.6 g/dl (14.0-18.0); LYMPHOCYTES # 1.7 10^3/ul (0.8-2.9); MEAN CORPUSCULAR HEMOGLOBIN 23.9 pg (29.0-33.0); MEAN CORPUSCULAR VOLUME 79.7 fl (82.0-101.0); MEAN PLATELET VOLUME 11.1 fl (7.4-10.4); MONOCYTE # 0.5 10^3/ul (0.3-0.9); MONOCYTES % 16.8 % (0.0-11.0); NEUTROPHIL # 0.6 10^3/ul (1.6-7.5); NEUTROPHILS % 20.7 % (39.0-77.0); POSITIVE DIFF @See below; RED BLOOD COUNT 4.43 10^6/ul (4.70-6.10); RED CELL DISTRIBUTION WIDTH 20.2 % (11.5-14.5)
[2019-02-23 07:06] LABS: PLATELET COUNT 98 10^3/UL (140-415)
[2019-02-23 07:26] LABS: ANION GAP 8 (5-13); BLOOD UREA NITROGEN 13 mg/dl (7-20); CALCIUM 8.5 mg/dl (8.4-10.2); CARBON DIOXIDE 26 mmol/L (21-31); CHLORIDE 109 mmol/L (97-110); CREATININE 0.76 mg/dl (0.61-1.24); GLUCOSE 86 mg/dl (70-220); POTASSIUM 4.1 mmol/L (3.5-5.1); SODIUM 143 mmol/L (135-144)
[2019-02-23] MEDS: DIVALPROEX (ER) 250 MG TAB PO (09:19)
[2019-02-23] MEDS: OLANZAPINE 2.5 MG TAB PO ×2 (09:19→12:11)
[2019-02-23] MEDS: MEMANTINE 10 MG TAB PO (09:20)
[2019-02-23] MEDS: ESCITALOPRAM 10 MG TAB PO (09:20)
[2019-02-23] MEDS: DONEPEZIL 10 MG TAB PO (09:20)
[2019-02-23] MEDS: FERROUS SULFATE (EC) 325 MG TAB PO (09:20)
[2019-02-23] MEDS: FAMOTIDINE 20 MG TAB PO (09:20)
[2019-02-23] MEDS: BENAZEPRIL 40 MG TAB PO (09:20)
[2019-02-23] MEDS: DUTASTERIDE 0.5 MG CAP PO (09:20)
[2019-02-23] MEDS: SOD FERRIC GLUC COMPLX 125 MG in SOD CHLORIDE 0.9% 100 ML IVPB (12:11)
== END 2019-02-23 17:50 | DRG 689 ==
LOC: E/R 11:43 → 5EC 12:57
DX: N30.00 Acute cystitis without hematuria (principal); G93.41 Metabolic encephalopathy; D61.818 Other pancytopenia; F03.91 Unspecified dementia, unspecified severity, with behavioral disturbance; J44.9 Chronic obstructive pulmonary disease, unspecified; I11.0 Hypertensive heart disease with heart failure; I50.9 Heart failure, unspecified; F32.9 Major depressive disorder, single episode, unspecified; N40.0 Benign prostatic hyperplasia without lower urinary tract symptoms; D50.9 Iron deficiency anemia, unspecified; I10 Essential (primary) hypertension
CPT/HCPCS: 36415; 80048; 80053; 80307; 81001; 82607; 82728; 83540; 84155; 84165; 85025; 85384; 85610; 85730; 87040-91; 87081; 87086; 99217; 99285-25